=== PATIENT | female | born 2000 | race Caucasian/White ===

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

== ENCOUNTER → 2023-10-29 | Emergency (ER) | payer SELFPAY ==
[~2023-10-29] MED LIST: LIDOCAINE 1% 20 ML MDV ONE
--- OUTSIDE RECORDS SUMMARY | 2023-10-29 01:18 | XMS REPORT | Continuity of Care Document ---
Author Name Unknown Address [address] [facility] [address] [place] [address] [facility] thconnect Address [address] [facility]. [address] [place] [address] Care Team Providers Care Generator Man Name Role Phone Julius Olmstead MD Primary Care Physician DELANEY HADLEY Attending Clinician Unavailable Delaney Hadley MD Attending Clinician [phone] LUCIA PACHECO Attending Clinician Unavailable Lucia Pacheco MD Attending Clinician [phone] Unknown, Attending Attending Clinician Unavailab le Doctor Unassigned, [place] Attending Clinician U VITOR Claire Attending Clinician Unavailable MAURICE AGUIRRE Attending Clinician Unavailable MAGI LOVE Attending Clinician Unavailable Keisha Dolan MA Attending Clinician Unavailab Shanon Chris RN Attending Clinician UnaCHRISTIANO Mccray Attending Clinician Unavailable 1, [facility] Attending Clinician Unavaila rachid Whelan DO Ramirez Attending Clinician [phone] RUTHIE PTA Attending Clinician Unavailable Ruthie Pat MD Attending Clinician [phone] Christiano Watters MD Attending Clinician [phone] LUIS LEMUS Attending Clinician Unavailable Inocente Camilo DO Attending Clinician [phone] Luis Lemus MD Attending Clinician [phone] Calvin Arnold PA-C Attending Clinician [phone] CALVIN ARNOLD Attending Clinician Unavailable 1, [facility] Attending Clinician Unavailab Davida Bowling MD Attending Clinician [phone] DAVIDA HANCOCK Attending Clinician Unavailyunier Smith RN, Lubna Gross Attending Clinician Unav heather 2, [facility] Attending Clinician Unavailable JULISSA MORALES Attending Clinician Unavaila CAROL Holloway Attending Clinician Unavailab Carol Alcala DO Attending Clinician [phone] SHAHENE PATINO Attending Clinician Unavailable Clinic, [facility] Neurology Continuity Attending Clini maddisonShaheen Lee MD Attending Clinician [phone] Lab, [facility] I Attending Clinician Unavailab Thomas Montelongo Attending Clinician [phone] Buzz HAMILTON, Philomena Gaviria Attending Clinician Unavailab THOMAS Mcneil Attending Clinician Unavailable Ollie Hughes Attending Clinician [phone] Po, [facility] Attending Clinician Unav VIKTORIA Hernandez M.D. Attending Clinician Unavaila MAURICE Iyer M.D. Attending Clinician Unava ilRUTHIE Torres Admitting Clinician Unavailable Ruthie Pat MD Admitting Clinician [phone] LUIS LEMUS Admitting Clinician Unavailable Luis Lemus MD Admitting Clinician [phone] Payers Payer Name Policy Type Policy Number Effective Date Expirati on Date Source [facility] [id number] 00:00:00 [facility] [id number] 2021 00:00:00 Problems Condition Name Condition Details Condition Category Status Onset Date Resolution Date Last Treatment Date Treating Clinician Comments Source Kidney infection Kidney infection Disease Active 03-08 00:00: 00 [facility] Hyponatrem ia Hyponatrem ia Disease Active 01-07 00:00: 00 [facility] UTI (urinary tract infection) UTI (urinary tract infection) Disease Active 12-25 00:00: 00 [facility] Hypomagnes emia Hypomagnes emia Disease Active 12-25 00:00: 00 [facility] Complicate d UTI (urinary tract infection) Complicate d UTI (urinary tract infection) Disease Active 12-24 00:00: 00 [facility] 23 weeks gestation of 23 weeks gestation of Disease Active 12-24 00:00: 00 [facility] Pyelonephr itis affecting , antepartum Pyelonephr itis affecting , antepartum Disease Active 12-24 00:00: 00 [facility] 25 weeks gestation of 25 weeks gestation of Disease Active 12-24 00:00: 00 [facility] Migraine without status migrainosu s, not intractabl e, unspecifie d migraine type Migraine without status migrainosu s, not intractabl e, unspecifie d migraine type Disease Active 09-27 00:00: 00 [facility] High risk due to previous abortions High risk due to previous abortions Disease Active 09-27 00:00: 00 [facility] Generalize d anxiety disorder Generalize d anxiety disorder Disease Active 2015-08 00:00: 00 [facility] Major depressive disorder, single episode, mild Major depressive disorder, single episode, mild Disease Active 2015-08 00:00: 00 [facility] Other social stressor Other social stressor Disease Active 2015-08 00:00: 00 [facility] Pseudoseiz ure Pseudoseiz ure Disease Active 2015-08 00:00: 00 [facility] Infected human bite Infected human bite Disease Active 2011-08 00:00: 00 [facility] Abscess or cellulitis of chin Abscess or cellulitis of chin Disease Active 2011-08 00:00: 00 [facility] Laceration of chin with complicati on Laceration of chin with complicati on Disease Active 2011-08 00:00: 00 [facility] Amenorrhea due to oral contracept luis daniel Amenorrhea due to oral contracept luis daniel [facility] Encounter for preconcept ion consultati on Encounter for preconcept ion consultati on Problem Active [facility] Encounter for confirmati on of test result with physical examinatio n Encounter for confirmati on of test result with physical examinatio n Problem Active [facility] Abnormal uterine bleeding Abnormal uterine bleeding Problem Active [facility] Problem Active [facility] History of Missed History of Missed Problem Resolve d [facility] Complete Complete Problem Active [facility] Allergies, Adverse Reactions, Alerts Allergy Name Allergy Type Status Severity Reaction(s) Onset Date Inactive Date Treating Clinician Comments Source PENICILL INS Drug Class Active Other-Cmnt 01-07 00:00: 00 [facility] Penicill ins Propensi ty to adverse reaction s Active Other - See comments 01-07 00:00: 00 Blisters in mouth/thr oat [facility] Penicill ins Propensi ty to adverse reaction s Active Other - See comments 01-07 00:00: 00 Blisters in mouth/thr oat [facility] Ceftriax one Sodium Propensi ty to adverse reaction s Active Rash 2012-08 00:00: 00 [facility] CEFTRIAX ONE SODIUM DRUG INGREDI Active Rash 2012-08 00:00: 00 [facility] Ceftriax one Allergy to substanc e Active Swelling 2011-08 00:00: 00 Pt broke out w/blister s to mouth, lip, tongue, jaw per mom. [facility] CEFTRIAX ONE DRUG INGREDI Active Swelling 2011-08 00:00: 00 [facility] Ceftriax one Propensi ty to adverse reaction s Active Swelling 2011-08 00:00: 00 Pt broke out w/blister s to mouth, lip, tongue, jaw per mom. [facility] Penicill ins Allergy to drug (finding ) Active [facility] Rocephin Allergy to drug (finding ) Active [facility] Family History Family Member Diagnosis Comments Start Date Stop Date Sourc e cousin Family history of diabetes mellitus [facility] great grandmother Family history of malignant neoplasm of colon [facility] great grandfather Family history of malignant neoplasm of breast [facility] Social History Social Habit Start Date Stop Date Quantity Comments Source ASSERTION 2021-07-30 00:00:00 [facility] SDOH Alcohol Comment [facility] Alcohol Std Drinks [facility] SDOH Alcohol Binge [facility] use and exposure 2023-05-20 00:00:00 2023-05-20 00:00:00 Smokeless tobacco non-user [facility] Exposure to SARS-CoV-2 (event) 2022-04-09 00:00:00 2022-04-19 13:12:00 Not sure [facility] Education 2022-01-17 00:00:00 2022-01-17 00:00:00 21 [facility] Cigarette pack-years 2022-01-17 00:00:00 2022-01-17 00:00:00 [facility] Alcohol intake 2022-01-17 00:00:00 2022-01-17 00:00:00 Ex-drinker (finding) [facility] History SDOH Alcohol Frequency 2022-01-17 00:00:00 2022-01-17 00:00:00 1 [facility] History of Social function 2021-08-30 00:00:00 2021-08-30 00:00:00 [facility] Sex Assigned At 2001 00:00:00 2000 00:00:00 F [facility] Smoking Status Start Date Stop Date Source Never smoked tobacco [facility] Medications Ordered Medication Name Filled Medication Name Start Date Stop Date Current Medication? Ordering Clinician Indication Dosage Frequency Signature (SIG) Comments Components Source rizatriptan 5 mg disintegrat ing tablet 2022-08 0-03 00:00: 00 Yes [id number] Take one, May repeat in 2 hours if needed. Do not take more afterwards . [facility] ondansetron 4 mg disintegrat ing tablet 2022-08 0- 00:00: 00 Yes [id number] 4mg Take 1 tablet by mouth every 12 (twelve) hours as needed for Nausea and Vomiting (N/V). [facility] rizatriptan 5 mg disintegrat ing tablet 2022-08 0- 00:00: 00 Yes [id number] Take one, May repeat in 2 hours if needed. Do not take more afterwards . [facility] ondansetron 4 mg disintegrat ing tablet 2022-08 0- 00:00: 00 Yes [id number] 4mg Take 1 tablet by mouth every 12 (twelve) hours as needed for Nausea and Vomiting (N/V). [facility] ondansetron 4 mg disintegrat ing tablet 2022-08 0 00:00: 00 05-20 00:00 :00 No [id number] 4mg Take 1 tablet by mouth every 12 (twelve) hours as needed for Nausea and Vomiting (N/V). [facility] Blood Pressure Monitoring (Blood Pressure Cuff) [facility] [place] [place] 03-26 00:00: 00 03-27 04:59 :00 No [id number] 1{devic e} QD 1 Device 1 (one) time each day. [facility]. Devices (Freestyle Double Breastpump) [facility] [place] [place] 03-26 00:00: 00 03-27 04:59 :00 No [id number] 1{devic e} 1 Device if needed (nursing infant). [facility] Blood Pressure Monitoring (Blood Pressure Cuff) [facility] [place] [place] 03-26 00:00: 00 03-27 04:59 :00 No [id number] 1{devic e} QD 1 Device 1 (one) time each day. [facility] Misc. Devices (Freestyle Double Breastpump) [facility] [place] [place] 8 00:00: 00 03-27 04:59 :00 No [id number] 1{devic e} 1 Device if needed (nursing ). [facility] nitrofurant oin, macrocrysta l-monohydra te, (Macrobid) 100 MG capsule 03-20 13:43: 09 Yes 100mg Q.5D Take 100 mg by mouth in the morning and 100 mg in the evening. [facility] nitrofurant oin, macrocrysta l-monohydra te, (Macrobid) 100 MG capsule 03-20 13:43: 09 Yes 100mg Q.5D Take 100 mg by mouth in the morning and 100 mg in the evening. [facility] nitrofurant oin, macrocrysta l-monohydra te, (Macrobid) 100 MG capsule 03-20 13:43: 09 Yes 100mg Q.5D Take 100 mg by mouth in the morning and 100 mg in the evening. [facility] nitrofurant oin, macrocrysta l-monohydra te, (Macrobid) 100 MG capsule 03-20 13:43: 09 Yes 100mg Q.5D Take 100 mg by mouth in the morning and 100 mg in the evening. [facility] nitrofurant oin, macrocrysta l-monohydra te, (Macrobid) 100 MG capsule 03-05 13:52: 49 Yes 100mg Q.5D Take 100 mg by mouth in the morning and 100 mg in the evening. [facility] nitrofurant oin, macrocrysta l-monohydra te, (Macrobid) 100 MG capsule 03-05 13:52: 49 Yes 100mg Q.5D Take 100 mg by mouth in the morning and 100 mg in the evening. [facility] nitrofurant oin, macrocrysta l-monohydra te, (Macrobid) 100 MG capsule 03-05 13:52: 49 Yes 100mg Q.5D Take 100 mg by mouth in the morning and 100 mg in the evening. [facility] nitrofurant oin, macrocrysta l-monohydra te, (Macrobid) 100 MG capsule 03-05 13:52: 49 Yes 100mg Q.5D Take 100 mg by mouth in the morning and 100 mg in the evening. [facility] nitrofurant oin, macrocrysta l-monohydra te, (Macrobid) 100 MG capsule 02-15 08:46: 41 Yes 100mg Q.5D Take 100 mg by mouth in the morning and 100 mg in the evening. [facility] nitrofurant oin, macrocrysta l-monohydra te, (Macrobid) 100 MG capsule 02-15 08:46: 41 Yes 100mg Q.5D Take 100 mg by mouth in the morning and 100 mg in the evening. [facility] nitrofurant oin, macrocrysta l-monohydra te, (Macrobid) 100 MG capsule 02-15 08:46: 41 Yes 100mg Q.5D Take 100 mg by mouth in the morning and 100 mg in the evening. [facility] nitrofurant oin, macrocrysta l-monohydra te, (Macrobid) 100 MG capsule 02-12 00:00: 00 02-20 04:59 :00 No [id number] 100mg Q.5D Take 1 capsule (100 mg total) by mouth in the morning and 1 capsule (100 mg total) in the evening. Do all this for 7 days. [facility] nitrofurant oin, macrocrysta l-monohydra te, (Macrobid) 100 MG capsule 02-12 00:00: 00 02-20 04:59 :00 No [id number] 100mg Q.5D Take 1 capsule (100 mg total) by mouth in the morning and 1 capsule (100 mg total) in the evening. Do all this for 7 days. [facility] nitrofurant oin, macrocrysta l-monohydra te, (Macrobid) 100 MG capsule 02-01 15:49: 12 Yes 100mg Q.5D Take 100 mg by mouth in the morning and 100 mg in the evening. [facility] nitrofurant oin, macrocrysta l-monohydra te, (Macrobid) 100 MG capsule 02-01 15:49: 12 Yes 100mg Q.5D Take 100 mg by mouth in the morning and 100 mg in the evening. [facility] amoxicillin -clavulanat e (AUGMENTIN) 875-125 mg per tablet 1 tablet 24 15:00: 00 Yes 1{tbl} 1 tablet, Oral, Q12H, First dose on Fri01/08/22 at 1000, Until Discontinu ed, Routine
Reason for Anti-Infec tive: Documented Infection< br>Documen dylan Infection Site: Urine
D uration of Therapy: 14 days [facility] Nitrofurant oin&Nit. Macrocryst (MACROBID) 100 mg capsule 100 mg 01-08 14:15: 00 Yes 100mg 100 mg, Oral, BID, First dose on Fri01/08/22 at 0915, Until Discontinu ed, Routine
Reason for Anti-Infec tive: Documented Infection< br>Documen dylan Infection Site: Urine
D uration of Therapy: 14 days [facility] amoxicillin -clavulanat e 875-125 mg per tablet 01-08 00:00: 00 01-22 04:59 :00 No [id number] 108 1{tbl} Take 1 tablet by mouth every 12 (twelve) hours for 13 days. [facility] Nitrofurant n&Nit. Macrocryst 100 mg capsule 01-08 00:00: 00 01-08 00:00 :00 No [id number] 108 100mg Take 1 capsule by mouth 2 (two) times daily for 13 days. [facility] NaCl 0.9% (NS) IV infusion 1,000 mL 01-07 11:15: 00 Yes 1000mL at 150 mL/hr, IV Infusion, CONTINUOUS , Starting on Fri01/07/22 at 0615, Until Discontinu ed, Routine [facility] piperacilli n-tazobacta m (ZOSYN) 3.375 g in NaCl 0.9% (NS) 50 mL MINI-BAG 01-07 11:00: 00 01-08 14:14 :30 No 3.375g 3.375 g, IV Piggyback, Q8H ABX, First dose on Fri01/07/22 at 0600, Until Discontinu ed, Administer over 30 Minutes, 50 mL
Reas on for Anti-Infec tive: Empiric Therapy for Suspected Infection< br>Empiric Therapy Site: Urine
D uration of therapy: 72 hours [facility] proMETHazin e (PHENERGAN) 12.5 mg in NaCl 0.9% (NS) 50 mL IV piggyback 01-07 10:39: 23 Yes 12.5mg 12.5 mg, IV Piggyback, Q4HPRN, Starting on Fri01/07/22 at 0539, Until Discontinu ed, Routine, Nausea and Vomiting (N/V) [facility] acetaminoph en (TYLENOL) tablet 650 mg 01-07 10:37: 03 Yes 650mg 650 mg, Oral, Q6HPRN, Starting on Fri01/07/22 at 0537, Until Discontinu ed, Routine, Pain, Fever [facility] acetaminoph en (TYLENOL) tablet 1,000 mg 01-07 10:02: 00 01-07 10:23 :00 No 1000mg 1,000 mg, Oral, ONCE, 1 dose, On Fri01/07/22 at 0515, Routine [facility] vitamin w/FA tablet 1 tablet 12-25 14:00: 00 Yes 1{tbl} 1 tablet, Oral, DAILY, First dose on Fri12/25/21 at 0900, Until Discontinu ed, Routine [facility] magnesium sulfate in water 2 gram/50 mL (4 %) infusion 2 g 12-25 13:45: 00 12-25 14:36 :00 No 2g 2 g, IV Piggyback, Administer over 60 Minutes, ONCE, 1 dose, On Fri12/25/21 at 0845, Routine [facility] Nitrofurant oin&Nit. Macrocryst (MACROBID) 100 mg capsule 100 mg 12-25 13:00: 00 Yes 100mg 100 mg, Oral, BID, First dose on Fri12/25/21 at 0800, Until Discontinu ed, Routine
Reason for Anti-Infec tive: Documented Infection [facility] piperacilli n-tazobacta m (ZOSYN) 3.375 g in NaCl 0.9% (NS) 50 mL MINI-BAG 12-25 03:00: 00 12-25 12:40 :18 No 3.375g 3.375 g, IV Piggyback, Q8H, First dose (after last reorder) on Fri12/24/21 at 2200, Until Discontinu ed, Administer over 4 Hours, 50 mL
Reas on for Anti-Infec tive: Empiric Therapy for Suspected Infection< br>Empiric Therapy Site: Urine
D uration of therapy: 72 hours [facility] Nitrofurant oin&Nit. Macrocryst 100 mg capsule 12-25 00:00: 00 01-02 04:59 :00 No [id number] 100mg Take 1 capsule by mouth 2 (two) times daily for 7 days. [facility] Nitrofurant oin&Nit. Macrocryst 100 mg capsule 12-25 00:00: 00 01-02 04:59 :00 No [id number] 100mg Take 1 capsule by mouth 2 (two) times daily for 7 days. [facility] Nitrofurant oin&Nit. Macrocryst 100 mg capsule 12-25 00:00: 00 01-02 04:59 :00 No [id number] 100mg Take 1 capsule by mouth 2 (two) times daily for 7 days. [facility] cetirizine (ZYRTEC) tablet 10 mg 12-24 23:00: 00 Yes 10mg 10 mg, Oral, DAILY, First dose on Fri12/24/21 at 1800, Until Discontinu ed, Routine [facility] acetaminoph en (TYLENOL) tablet 650 mg 12-24 17:47: 56 Yes 650mg 650 mg, Oral, Q6HPRN, Starting on Fri12/24/21 at 1247, Until Discontinu ed, Routine, Pain (scale 1-3), Pain (scale 4-6), Temp > 38.5 C [facility] alum-mag hydroxide-s imeth (MAALOX PLUS / MAG-AL PLUS) 200-200-20 mg/5 mL suspension 30 mL 12-24 17:46: 44 Yes 30mL 30 mL, Oral, Q6HPRN, Starting on Fri12/24/21 at 1246, Until Discontinu ed, Routine, Indigestio n [facility] docusate calcium (SURFAK) capsule 240 mg 12-24 17:46: 44 Yes 240mg 240 mg, Oral, QHSPRN, Starting on Fri12/24/21 at 1246, Until Discontinu ed, Routine, Constipati on [facility] magnesium hydroxide (MILK OF MAGNESIA) 400 mg/5 mL suspension 30 mL 12-24 17:46: 44 Yes 30mL 30 mL, Oral, QDAILYPRN, Starting on Fri12/24/21 at 1246, Until Discontinu ed, Routine, Constipati on [facility] piperacilli n-tazobacta m (ZOSYN) 3.375 g in NaCl 0.9% (NS) 50 mL MINI-BAG 12-24 16:30: 00 12-24 16:17 :00 No 3.375g 3.375 g, IV Piggyback, ONCE, 1 dose, On Fri12/24/21 at 1130, Administer over 30 Minutes, 50 mL
Reas on for Anti-Infec tive: Empiric Therapy for Suspected Infection< br>Empiric Therapy Site: Urine
D uration of therapy: 72 hours [facility] Nitrofurant oin&Nit. Macrocryst (MACROBID) 100 mg capsule 100 mg 11-01 03:30: 00 11-01 02:43 :00 No 100mg 100 mg, Oral, ONCE, 1 dose, On Fri10/31/21 at 2230, Routine
Reason for Anti-Infec tive: Empiric Therapy for Suspected Infection< br>Empiric Therapy Site: Urine
D uration of therapy: 72 hours [facility] Nitrofurant oin&Nit. Macrocryst 100 mg capsule 10-31 00:00: 00 11-08 04:59 :00 No [id number] 100mg Take 1 capsule by mouth 2 (two) times daily for 7 days. [facility] magnesium oxide 400 mg (241.3 mg magnesium) tablet 0 2-24 00:00: 00 Yes [id number] 400mg Take 1 tablet by mouth daily. [facility] oxide 400 mg (241.3 mg magnesium) tablet 0 2-24 00:00: 00 Yes [id number] 400mg Take 1 tablet by mouth daily. [facility] magnesium oxide 400 mg (241.3 mg magnesium) tablet 0 2-24 00:00: 00 Yes [id number] 400mg Take 1 tablet by mouth daily. [facility] magnesium oxide 400 mg (241.3 mg magnesium) tablet 0 2-24 00:00: 00 Yes [id number] 400mg Take 1 tablet by mouth daily. [facility] magnesium oxide 400 mg (241.3 mg magnesium) tablet 0 224 00:00: 00 Yes [id number] 400mg Take 1 tablet by mouth daily. [facility] magnesium oxide 400 mg (241.3 mg magnesium) tablet 0 224 00:00: 00 Yes [id number] 400mg Take 1 tablet by mouth daily. [facility] magnesium oxide 400 mg (241.3 mg magnesium) tablet 0 224 00:00: 00 Yes [id number] 400mg Take 1 tablet by mouth daily. [facility] magnesium oxide 400 mg (241.3 mg magnesium) tablet 0 2-24 00:00: 00 Yes [id number] 400mg Take 1 tablet by mouth daily. [facility] magnesium oxide 400 mg (241.3 mg magnesium) tablet 0 2-24 00:00: 00 Yes [id number] 400mg Take 1 tablet by mouth daily. [facility] magnesium oxide 400 mg (241.3 mg magnesium) tablet 0 2-24 00:00: 00 Yes [id number] 400mg Take 1 tablet by mouth daily. [facility] magnesium oxide 400 mg (241.3 mg magnesium) tablet 0 2-24 00:00: 00 Yes [id number] 400mg Take 1 tablet by mouth daily. [facility] magnesium oxide 400 mg (241.3 mg magnesium) tablet 224 00:00: 00 Yes [id number] 400mg Take 1 tablet by mouth daily. [facility] magnesium oxide 400 mg (241.3 mg magnesium) tablet 224 00:00: 00 Yes [id number] 400mg Take 1 tablet by mouth daily. [facility] magnesium oxide 400 mg (241.3 mg magnesium) tablet 224 00:00: 00 Yes [id number] 400mg Take 1 tablet by mouth daily. [facility] magnesium oxide 400 mg (241.3 mg magnesium) tablet 224 00:00: 00 Yes [id number] 400mg Take 1 tablet by mouth daily. [facility] magnesium oxide 400 mg (241.3 mg magnesium) tablet 10-11 00:00: 00 Yes [id number] 400mg Take 1 tablet by mouth daily. [facility] magnesium oxide 400 mg (241.3 mg magnesium) tablet 224 00:00: 00 Yes [id number] 400mg Take 1 tablet by mouth daily. [facility] magnesium oxide 400 mg (241.3 mg magnesium) tablet 224 00:00: 00 Yes [id number] 400mg Take 1 tablet by mouth daily. [facility] magnesium oxide 400 mg (241.3 mg magnesium) tablet 10-11 00:00: 00 Yes [id number] 400mg Take 1 tablet by mouth daily. [facility] magnesium oxide 400 mg (241.3 mg magnesium) tablet 2-24 00:00: 00 Yes [id number] 400mg Take 1 tablet by mouth daily. [facility] magnesium oxide 400 mg (241.3 mg magnesium) tablet 0 224 00:00: 00 Yes [id number] 400mg Take 1 tablet by mouth daily. [facility] acetaminoph en-caff-but albital (ESGIC) per capsule 2-10 00:00: 00 Yes [id number] 1{capsu le} Take 1 capsule by mouth every 4 (four) hours as needed (headache not improve with Tylenol). [facility] acetaminoph en-caff-but albital (ESGIC) per capsule 2-10 00:00: 00 Yes [id number] 1{capsu le} Take 1 capsule by mouth every 4 (four) hours as needed (headache not improve with Tylenol). [facility] acetaminoph en-caff-but albital (ESGIC) per capsule 2-10 00:00: 00 Yes [id number] 1{capsu le} Take 1 capsule by mouth every 4 (four) hours as needed (headache not improve with Tylenol). [facility] acetaminoph en-caff-but albital (ESGIC) per capsule 2 00:00: 00 Yes [id number] 1{capsu le} Take 1 capsule by mouth every 4 (four) hours as needed (headache not improve with Tylenol). [facility] acetaminoph en-caff-but albital (ESGIC) per capsule 2 00:00: 00 Yes [id number] 1{capsu le} Take 1 capsule by mouth every 4 (four) hours as needed (headache not improve with Tylenol). [facility] acetaminoph en-caff-but albital (ESGIC) per capsule 2 00:00: 00 Yes [id number] 1{capsu le} Take 1 capsule by mouth every 4 (four) hours as needed (headache not improve with Tylenol). [facility] acetaminoph en-caff-but albital (ESGIC) per capsule 2-10 00:00: 00 Yes [id number] 1{capsu le} Take 1 capsule by mouth every 4 (four) hours as needed (headache not improve with Tylenol). [facility] acetaminoph en-caff-but albital (ESGIC) per capsule 2-10 00:00: 00 Yes [id number] 1{capsu le} Take 1 capsule by mouth every 4 (four) hours as needed (headache not improve with Tylenol). [facility] acetaminoph en-caff-but albital (ESGIC) per capsule 2-10 00:00: 00 Yes [id number] 1{capsu le} Take 1 capsule by mouth every 4 (four) hours as needed (headache not improve with Tylenol). [facility] acetaminoph en-caff-but albital (ESGIC) per capsule 2 00:00: 00 Yes [id number] 1{capsu le} Take 1 capsule by mouth every 4 (four) hours as needed (headache not improve with Tylenol). [facility] acetaminoph en-caff-but albital (ESGIC) per capsule 2 00:00: 00 Yes [id number] 1{capsu le} Take 1 capsule by mouth every 4 (four) hours as needed (headache not improve with Tylenol). [facility] acetaminoph en-caff-but albital (ESGIC) per capsule 2 00:00: 00 Yes [id number] 1{capsu le} Take 1 capsule by mouth every 4 (four) hours as needed (headache not improve with Tylenol). [facility] acetaminoph en-caff-but albital (ESGIC) per capsule 09-27 00:00: 00 Yes [id number] 1{capsu le} Take 1 capsule by mouth every 4 (four) hours as needed (headache not improve with Tylenol). [facility] acetaminoph en-caff-but albital (ESGIC) per capsule 2 00:00: 00 Yes [id number] 1{capsu le} Take 1 capsule by mouth every 4 (four) hours as needed (headache not improve with Tylenol). [facility] acetaminoph en-caff-but albital (ESGIC) per capsule 2 00:00: 00 Yes [id number] 1{capsu le} Take 1 capsule by mouth every 4 (four) hours as needed (headache not improve with Tylenol). [facility] acetaminoph en-caff-but albital (ESGIC) per capsule 2- 00:00: 00 Yes [id number] 1{capsu le} Take 1 capsule by mouth every 4 (four) hours as needed (headache not improve with Tylenol). [facility] acetaminoph en-caff-but albital (ESGIC) per capsule 09-27 00:00: 00 Yes [id number] 1{capsu le} Take 1 capsule by mouth every 4 (four) hours as needed (headache not improve with Tylenol). [facility] acetaminoph en-caff-but albital (ESGIC) per capsule 09-27 00:00: 00 Yes [id number] 1{capsu le} Take 1 capsule by mouth every 4 (four) hours as needed (headache not improve with Tylenol). [facility] acetaminoph en-caff-but albital (ESGIC) per capsule 09-27 00:00: 00 Yes [id number] 1{capsu le} Take 1 capsule by mouth every 4 (four) hours as needed (headache not improve with Tylenol). [facility] acetaminoph en-caff-but albital (ESGIC) per capsule 09-27 00:00: 00 Yes [id number] 1{capsu le} Take 1 capsule by mouth every 4 (four) hours as needed (headache not improve with Tylenol). [facility] acetaminoph en-caff-but albital (ESGIC) per capsule 09-27 00:00: 00 Yes [id number] 1{capsu le} Take 1 capsule by mouth every 4 (four) hours as needed (headache not improve with Tylenol). [facility] magnesium oxide 400 mg (241.3 mg magnesium) tablet 09-27 00:00: 00 10-11 00:00 :00 No [id number] 400mg Take 1 tablet by mouth daily. [facility] miconazole 100 mg vaginal suppository 09-02 00:00: 00 Yes [id number] 100mg Insert 1 Suppositor y into vagina at bedtime. [facility] miconazole 100 mg vaginal suppository 16 00:00: 00 Yes [id number] 100mg Insert 1 Suppositor y into vagina at bedtime. [facility] miconazole 100 mg vaginal suppository 0 16 00:00: 00 Yes [id number] 100mg Insert 1 Suppositor y into vagina at bedtime. [facility] miconazole 100 mg vaginal suppository 0 16 00:00: 00 Yes [id number] 100mg Insert 1 Suppositor y into vagina at bedtime. [facility] miconazole 100 mg vaginal suppository 0 16 00:00: 00 Yes [id number] 100mg Insert 1 Suppositor y into vagina at bedtime. [facility] miconazole 100 mg vaginal suppository 0 16 00:00: 00 Yes [id number] 100mg Insert 1 Suppositor y into vagina at bedtime. [facility] miconazole 100 mg vaginal suppository 0 16 00:00: 00 Yes [id number] 100mg Insert 1 Suppositor y into vagina at bedtime. [facility] miconazole 100 mg vaginal suppository 0 16 00:00: 00 Yes [id number] 100mg Insert 1 Suppositor y into vagina at bedtime. [facility] miconazole 100 mg vaginal suppository 16 00:00: 00 Yes [id number] 100mg Insert 1 Suppositor y into vagina at bedtime. [facility] miconazole 100 mg vaginal suppository 0 16 00:00: 00 Yes [id number] 100mg Insert 1 Suppositor y into vagina at bedtime. [facility] miconazole 100 mg vaginal suppository 0 16 00:00: 00 Yes [id number] 100mg Insert 1 Suppositor y into vagina at bedtime. [facility] miconazole 100 mg vaginal suppository 0 16 00:00: 00 Yes [id number] 100mg Insert 1 Suppositor y into vagina at bedtime. [facility] miconazole 100 mg vaginal suppository 2021-0 -16 00:00: 00 Yes [id number] 100mg Insert 1 Suppositor y into vagina at bedtime. [facility] miconazole 100 mg vaginal suppository 2021-0 16 00:00: 00 Yes [id number] 100mg Insert 1 Suppositor y into vagina at bedtime. [facility] miconazole 100 mg vaginal suppository 2021-0 16 00:00: 00 Yes [id number] 100mg Insert 1 Suppositor y into vagina at bedtime. [facility] miconazole 100 mg vaginal suppository 0 16 00:00: 00 Yes [id number] 100mg Insert 1 Suppositor y into vagina at bedtime. [facility] miconazole 100 mg vaginal suppository 2021-0 16 00:00: 00 Yes [id number] 100mg Insert 1 Suppositor y into vagina at bedtime. [facility] miconazole 100 mg vaginal suppository 2021-0 16 00:00: 00 Yes [id number] 100mg Insert 1 Suppositor y into vagina at bedtime. [facility] miconazole 100 mg vaginal suppository 0 16 00:00: 00 Yes [id number] 100mg Insert 1 Suppositor y into vagina at bedtime. [facility] miconazole 100 mg vaginal suppository 2021-0 16 00:00: 00 Yes [id number] 100mg Insert 1 Suppositor y into vagina at bedtime. [facility] miconazole 100 mg vaginal suppository 2021-0 16 00:00: 00 Yes [id number] 100mg Insert 1 Suppositor y into vagina at bedtime. [facility] miconazole 100 mg vaginal suppository 2021-0 16 00:00: 00 Yes [id number] 100mg Insert 1 Suppositor y into vagina at bedtime. [facility] miconazole 100 mg vaginal suppository 2021-0 16 00:00: 00 Yes [id number] 100mg Insert 1 Suppositor y into vagina at bedtime. [facility] Prenat-Fe Poly-Methfo l-FA-DHA (Vitafol FE+) 90-0.6-0.4- 200 MG capsule 2022-0 1-13 00:00: 00 Yes Take by mouth. [facility] Prenat-Fe Poly-Methfo l-FA-DHA (Vitafol FE+) 90-0.6-0.4- 200 MG capsule 2022-0 1-13 00:00: 00 Yes Take by mouth. [facility] Prenat-Fe Poly-Methfo l-FA-DHA (Vitafol FE+) 90-0.6-0.4- 200 MG capsule 2022-0 1-13 00:00: 00 Yes Take by mouth. [facility] Prenat-Fe Poly-Methfo l-FA-DHA (Vitafol FE+) 90-0.6-0.4- 200 MG capsule 2022-0 -13 00:00: 00 Yes Take by mouth. [facility] Prenat-Fe Poly-Methfo l-FA-DHA (Vitafol FE+) 90-0.6-0.4- 200 MG capsule 2022-0 -13 00:00: 00 Yes Take by mouth. [facility] Prenat-Fe Poly-Methfo l-FA-DHA (Vitafol FE+) 90-0.6-0.4- 200 MG capsule 2022-0 -13 00:00: 00 Yes Take by mouth. [facility] Prenat-Fe Poly-Methfo l-FA-DHA (Vitafol FE+) 90-0.6-0.4- 200 MG capsule 2022-0 1-13 00:00: 00 Yes Take by mouth. [facility] Prenat-Fe Poly-Methfo l-FA-DHA (Vitafol FE+) 90-0.6-0.4- 200 MG capsule 2022-0 -13 00:00: 00 Yes Take by mouth. [facility] Prenat-Fe Poly-Methfo l-FA-DHA (Vitafol FE+) 90-0.6-0.4- 200 MG capsule 2022-0 -13 00:00: 00 Yes Take by mouth. [facility] Prenat-Fe Poly-Methfo l-FA-DHA (Vitafol FE+) 90-0.6-0.4- 200 MG capsule 2022-0 1-13 00:00: 00 Yes Take by mouth. [facility] PNV 102-iron-fo late-dha (VITAFOL FE PLUS) 90 mg iron- 1 mg-200 mg Cap 2022-0 1-13 00:00: 00 Yes Take 1 TAB-CAP/M2 by mouth daily. [facility] PNV 102-iron-fo late-dha (VITAFOL FE PLUS) 90 mg iron- 1 mg-200 mg Cap 2022-0 1-13 00:00: 00 Yes Take 1 TAB-CAP/M2 by mouth daily. [facility] PNV 102-iron-fo late-dha (VITAFOL FE PLUS) 90 mg iron- 1 mg-200 mg Cap 2022-0 1-13 00:00: 00 Yes Take 1 TAB-CAP/M2 by mouth daily. [facility] PNV 102-iron-fo late-dha (VITAFOL FE PLUS) 90 mg iron- 1 mg-200 mg Cap 2-0 -13 00:00: 00 Yes Take 1 TAB-CAP/M2 by mouth daily. [facility] PNV 102-iron-fo late-dha (VITAFOL FE PLUS) 90 mg iron- 1 mg-200 mg Cap 2-0 -13 00:00: 00 Yes Take 1 TAB-CAP/M2 by mouth daily. [facility] PNV 102-iron-fo late-dha (VITAFOL FE PLUS) 90 mg iron- 1 mg-200 mg Cap 2022-0 -13 00:00: 00 Yes Take 1 TAB-CAP/M2 by mouth daily. [facility] PNV 102-iron-fo late-dha (VITAFOL FE PLUS) 90 mg iron- 1 mg-200 mg Cap 2022-0 1-13 00:00: 00 Yes Take 1 TAB-CAP/M2 by mouth daily. [facility] PNV 102-iron-fo late-dha (VITAFOL FE PLUS) 90 mg iron- 1 mg-200 mg Cap 2022-0 -13 00:00: 00 Yes Take 1 TAB-CAP/M2 by mouth daily. [facility] PNV 102-iron-fo late-dha (VITAFOL FE PLUS) 90 mg iron- 1 mg-200 mg Cap 2022-0 1-13 00:00: 00 Yes Take 1 TAB-CAP/M2 by mouth daily. [facility] PNV 102-iron-fo late-dha (VITAFOL FE PLUS) 90 mg iron- 1 mg-200 mg Cap 2021-0 - 00:00: 00 Yes Take 1 TAB-CAP/M2 by mouth daily. [facility] Prenat-Fe Poly-Methfo l-FA-DHA (Vitafol FE+) 90-0.6-0.4- 200 MG capsule 2021-0 - 00:00: 00 Yes Take by mouth. [facility] PNV 102-iron-fo late-dha (VITAFOL FE PLUS) 90 mg iron- 1 mg-200 mg Cap 2021-0 08-30 00:00: 00 Yes Take 1 TAB-CAP/M2 by mouth daily. [facility] PNV 102-iron-fo late-dha (VITAFOL FE PLUS) 90 mg iron- 1 mg-200 mg Cap 2021-0 08-30 00:00: 00 Yes Take 1 TAB-CAP/M2 by mouth daily. [facility] PNV 102-iron-fo late-dha (VITAFOL FE PLUS) 90 mg iron- 1 mg-200 mg Cap 2021-0 08-30 00:00: 00 Yes Take 1 TAB-CAP/M2 by mouth daily. [facility] PNV 102-iron-fo late-dha (VITAFOL FE PLUS) 90 mg iron- 1 mg-200 mg Cap 2021-0 08-30 00:00: 00 Yes Take 1 TAB-CAP/M2 by mouth daily. [facility] PNV 102-iron-fo late-dha (VITAFOL FE PLUS) 90 mg iron- 1 mg-200 mg Cap 2021-0 08-30 00:00: 00 Yes Take 1 TAB-CAP/M2 by mouth daily. [facility] PNV 102-iron-fo late-dha (VITAFOL FE PLUS) 90 mg iron- 1 mg-200 mg Cap 2-0 08-30 00:00: 00 Yes Take 1 TAB-CAP/M2 by mouth daily. [facility] PNV 102-iron-fo late-dha (VITAFOL FE PLUS) 90 mg iron- 1 mg-200 mg Cap 2022-0 1-13 00:00: 00 Yes Take 1 TAB-CAP/M2 by mouth daily. [facility] PNV 102-iron-fo late-dha (VITAFOL FE PLUS) 90 mg iron- 1 mg-200 mg Cap 2022-0 1-13 00:00: 00 Yes Take 1 TAB-CAP/M2 by mouth daily. [facility] PN 102-iron-fo late-dha (VITAFOL FE PLUS) 90 mg iron- 1 mg-200 mg Cap 2022-0 -13 00:00: 00 Yes Take 1 TAB-CAP/M2 by mouth daily. [facility] PNV 102-iron-fo late-dha (VITAFOL FE PLUS) 90 mg iron- 1 mg-200 mg Cap 2-0 -13 00:00: 00 Yes Take 1 TAB-CAP/M2 by mouth daily. [facility] Prenat-Fe Poly-Methfo l-FA-DHA (Vitafol FE+) 90-0.6-0.4- 200 MG capsule 2-0 -13 00:00: 00 Yes Take by mouth. [facility] 102-iron-fo late-dha (VITAFOL FE PLUS) 90 mg iron- 1 mg-200 mg Cap 2-0 - 00:00: 00 Yes Take 1 TAB-CAP/M2 by mouth daily. [facility] PNV 102-iron-fo late-dha (VITAFOL FE PLUS) 90 mg iron- 1 mg-200 mg Cap 2-0 -13 00:00: 00 Yes Take 1 TAB-CAP/M2 by mouth daily. [facility] PN 102-iron-fo late-dha (VITAFOL FE PLUS) 90 mg iron- 1 mg-200 mg Cap 2022-0 -13 00:00: 00 Yes Take 1 TAB-CAP/M2 by mouth daily. [facility] Prenat-Fe Poly-Methfo l-FA-DHA (Vitafol FE+) 90-0.6-0.4- 200 MG capsule 2022-0 1-13 00:00: 00 Yes Take by mouth. [facility] Prenat-Fe Poly-Methfo l-FA-DHA (Vitafol FE+) 90-0.6-0.4- 200 MG capsule 08-30 00:00: 00 Yes Take by mouth. [facility] Prenat-Fe Poly-Methfo l-FA-DHA (Vitafol FE+) 90-0.6-0.4- 200 MG capsule 08-30 00:00: 00 Yes Take by mouth. [facility] Immunizations Ordered Immunization Name Filled Immunization Name Date Status Comments Source Tdap 2022-02-21 00:00:00 Completed [facility] Tdap 2022-02-21 00:00:00 Completed [facility] Tdap 2022-02-21 00:00:00 Completed [facility] Tdap 2022-02-21 00:00:00 Completed [facility] Tdap 2022-02-21 00:00:00 Completed [facility] Tdap 2022-02-21 00:00:00 Completed [facility] Tdap 2022-02-21 00:00:00 Completed [facility] Tdap 2022-02-21 00:00:00 Completed [facility] Tdap 2022-02-21 00:00:00 Completed [facility] Influenza Virus Vaccine Quad IM, Preserv and ABX Free 6 MO-64 YRS 2021-08-30 00:00:00 Completed [facility] Influenza Virus Vaccine Quad IM, Preserv and ABX Free 6 MO-64 YRS 2021-08-30 00:00:00 Completed [facility] Influenza Virus Vaccine Quad IM, Preserv and ABX Free 6 MO-64 YRS 2021-08-30 00:00:00 Completed [facility] Influenza Virus Vaccine Quad IM, Preserv and ABX Free 6 MO-64 YRS 2021-08-30 00:00:00 Completed [facility] Influenza Virus Vaccine Quad IM, Preserv and ABX Free 6 MO-64 YRS 2021-08-30 00:00:00 Completed [facility] Influenza Virus Vaccine Quad IM, Preserv and ABX Free 6 MO-64 YRS 2021-08-30 00:00:00 Completed [facility] Influenza Virus Vaccine Quad IM, Preserv and ABX Free 6 MO-64 YRS 2021-08-30 00:00:00 Completed [facility] Influenza Virus Vaccine Quad IM, Preserv and ABX Free 6 MO-64 YRS 2021-08-30 00:00:00 Completed [facility] Influenza Virus Vaccine Quad IM, Preserv and ABX Free 6 MO-64 YRS 2021-08-30 00:00:00 Completed [facility] Influenza Virus Vaccine Quad IM, Preserv and ABX Free 6 MO-64 YRS 2021-08-30 00:00:00 Completed [facility] Influenza Virus Vaccine Quad IM, Preserv and ABX Free 6 MO-64 YRS 2021-08-30 00:00:00 Completed [facility] Influenza Virus Vaccine Quad IM, Preserv and ABX Free 6 MO-64 YRS 2021-08-30 00:00:00 Completed [facility] Influenza Virus Vaccine Quad IM, Preserv and ABX Free 6 MO-64 YRS 2021-08-30 00:00:00 Completed [facility] Influenza Virus Vaccine Quad IM, Preserv and ABX Free 6 MO-64 YRS 2021-08-30 00:00:00 Completed [facility] Influenza Virus Vaccine Quad IM, Preserv and ABX Free 6 MO-64 YRS 2021-08-30 00:00:00 Completed [facility] Influenza Virus Vaccine Quad IM, Preserv and ABX Free 6 MO-64 YRS 2021-08-30 00:00:00 Completed [facility] Influenza Virus Vaccine Quad IM, Preserv and ABX Free 6 MO-64 YRS 2021-08-30 00:00:00 Completed [facility] Influenza Virus Vaccine Quad IM, Preserv and ABX Free 6 MO-64 YRS 2021-08-30 00:00:00 Completed [facility] Gardasil 9 Intramuscular Suspension 2018-01-05 00:00:00 Completed [facility] HPV9 2018-01-05 00:00:00 Completed [facility] HPV9 2018-01-05 00:00:00 Completed [facility] HPV9 2018-01-05 00:00:00 Completed [facility] HPV9 2018-01-05 00:00:00 Completed [facility] HPV9 2018-01-05 00:00:00 Completed [facility] HPV9 2018-01-05 00:00:00 Completed [facility] HPV9 2018-01-05 00:00:00 Completed [facility] HPV9 2018-01-05 00:00:00 Completed [facility] HPV9 2018-01-05 00:00:00 Completed [facility] Gardasil 9 Intramuscular Suspension 2017-05-23 00:00:00 Completed [facility] HPV9 2017-05-23 00:00:00 Completed [facility] HPV9 2017-05-23 00:00:00 Completed [facility] HPV9 2017-05-23 00:00:00 Completed [facility] HPV9 2017-05-23 00:00:00 Completed [facility] HPV9 2017-05-23 00:00:00 Completed [facility] HPV9 2017-05-23 00:00:00 Completed [facility] HPV9 2017-05-23 00:00:00 Completed [facility] HPV9 2017-05-23 00:00:00 Completed [facility] HPV9 2017-05-23 00:00:00 Completed [facility] Gardasil 9 Intramuscular Suspension 2017-03-12 00:00:00 Completed [facility] 2017-03-12 00:00:00 Completed [facility] HPV9 2017-03-12 00:00:00 Completed [facility] HPV9 2017-03-12 00:00:00 Completed [facility] HPV9 2017-03-12 00:00:00 Completed [facility] HPV9 2017-03-12 00:00:00 Completed [facility] HPV9 2017-03-12 00:00:00 Completed [facility] HPV9 2017-03-12 00:00:00 Completed [facility] HPV9 2017-03-12 00:00:00 Completed [facility] HPV9 2017-03-12 00:00:00 Completed [facility] Meningococcal, MCV4, unspecified conjugate formulation(groups A, C, Y and W-135) 2014-03-22 00:00:00 Completed [facility] Varivax 1350 PFU/0.5ML Subcutaneous Injectable 2012-09-29 00:00:00 Completed [facility] Boostrix 5-2.5-18.5 Intramuscular Suspension 2012-08-04 00:00:00 Completed [facility] TDAP 2012-08-04 00:00:00 Completed [facility] TDAP 2012-08-04 00:00:00 Completed [facility] TDAP 2012-08-04 00:00:00 Completed [facility] TDAP 2012-08-04 00:00:00 Completed [facility] TDAP 2012-08-04 00:00:00 Completed [facility] TDAP 2012-08-04 00:00:00 Completed [facility] TDAP 2012-08-04 00:00:00 Completed [facility] TDAP 2012-08-04 00:00:00 Completed [facility] TDAP 2012-08-04 00:00:00 Completed [facility] TDAP 2012-08-04 00:00:00 Completed [facility] hepatitis A vaccine, pediatric/adolescen t dosage, 2 dose schedule 2006-03-20 00:00:00 Completed [facility] Ipol Injection Injectable 2005-07-02 00:00:00 Completed [facility] DTaP, unspecified formulation 2005-07-02 00:00:00 Completed [facility] M-M-R II Subcutaneous Injectable 2005-07-02 00:00:00 Completed [facility] Pneumo (Prevnar 7) 2005-04-18 00:00:00 Completed [facility] hepatitis A vaccine, pediatric/adolescen t dosage, 2 dose schedule 2005-04-18 00:00:00 Completed [facility] Ipol Injection Injectable 2002-11-10 00:00:00 Completed [facility] Hib, Haemophilus influenzae type b vaccine, PRP-T conjugate 2002-11-10 00:00:00 Completed [facility] DTaP, unspecified formulation 2002-11-10 00:00:00 Completed [facility] M-M-R II Subcutaneous Injectable 2002-11-10 00:00:00 Completed [facility] Varivax 1350 PFU/0.5ML Subcutaneous Injectable 2002-11-10 00:00:00 Completed [facility] Hib, Haemophilus influenzae type b vaccine, PRP-T conjugate 2002-03-17 00:00:00 Completed [facility] DTaP, unspecified formulation 2002-03-17 00:00:00 Completed [facility] Hepatitis B, pediatric/adolescen t dosage 2001 00:00:00 Completed [facility] Ipol Injection Injectable 2001 00:00:00 Completed [facility] Hib, Haemophilus influenzae type b vaccine, PRP-T conjugate 2001 00:00:00 Completed [facility] DTaP, unspecified formulation 2001 00:00:00 Completed [facility] Ipol Injection Injectable 2001 00:00:00 Completed [facility] Hib, Haemophilus influenzae type b vaccine, PRP-T conjugate 2001 00:00:00 Completed [facility] DTaP, unspecified formulation 2001 00:00:00 Completed [facility] Hepatitis B, pediatric/adolescen t dosage 2001 00:00:00 Completed [facility] Hepatitis B, pediatric/adolescen t dosage 2001 00:00:00 Completed [facility] Influenza Virus Vaccine Quad IM, Preserv and ABX Free 6 MO-64 YRS (FLUCELVAX) Unknown Completed [facility] TDAP Unknown Completed [facility] HPV9 Unknown Completed [facility] HPV9 Unknown Completed [facility] HPV9 Unknown Completed [facility] Influenza Virus Vaccine Quad IM, Preserv and ABX Free 6 MO-64 YRS (FLUCELVAX) Unknown Completed [facility] TDAP Unknown Completed [facility] HPV9 Unknown Completed [facility] HPV9 Unknown Completed [facility] HPV9 Unknown Completed [facility] TDAP Unknown Completed [facility] HPV9 Unknown Completed [facility] HPV9 Unknown Completed [facility] HPV9 Unknown Completed [facility] TDAP Unknown Completed [facility] HPV9 Unknown Completed [facility] HPV9 Unknown Completed [facility] HPV9 Unknown Completed [facility] TDAP Unknown Completed [facility] HPV9 Unknown Completed [facility] HPV9 Unknown Completed [facility] HPV9 Unknown Completed [facility] Influenza Virus Vaccine Quad IM, Preserv and ABX Free 6 MO-64 YRS (FLUCELVAX) Unknown Completed [facility] TDAP Unknown Completed [facility] HPV9 Unknown Completed [facility] HPV9 Unknown Completed [facility] HPV9 Unknown Completed [facility] Influenza Virus Vaccine Quad IM, Preserv and ABX Free 6 MO-64 YRS (FLUCELVAX) Unknown Completed [facility] TDAP Unknown Completed [facility] HPV9 Unknown Completed [facility] HPV9 Unknown Completed [facility] HPV9 Unknown Completed [facility] Influenza Virus Vaccine Quad IM, Preserv and ABX Free 6 MO-64 YRS (FLUCELVAX) Unknown Completed [facility] TDAP Unknown Completed [facility] HPV9 Unknown Completed [facility] HPV9 Unknown Completed [facility] HPV9 Unknown Completed [facility] Vital Signs Vital Name Observation Time Observation Value Comments S ource Systolic blood pressure 2023-10-29 03:39:00 136 mm[Hg] [facility] Diastolic blood pressure 2023-10-29 03:39:00 86 mm[Hg] [facility] Heart rate 2023-10-29 03:39:00 89 /min [facility] Body temperature 2023-10-29 03:39:00 37.39 Patsy [facility] Respiratory rate 2023-10-29 03:39:00 14 /min [facility] Body height 2023-10-29 03:39:00 170.2 cm [facility] Body weight 2023-10-29 03:39:00 86.183 kg [facility] BMI 2023-10-29 03:39:00 29.76 kg/m2 [facility] Oxygen saturation in Arterial blood by Pulse oximetry 2023-10-29 03:39:00 100 /min [facility] Systolic blood pressure 2023-05-20 15:39:00 117 mm[Hg] [facility] Diastolic blood pressure 2023-05-20 15:39:00 80 mm[Hg] [facility] Heart rate 2023-05-20 15:39:00 100 /min [facility] Body temperature 2023-05-20 15:39:00 36.67 Patsy [facility] Respiratory rate 2023-05-20 15:39:00 18 /min [facility] Body height 2023-05-20 15:39:00 168.9 cm [facility] Body weight 2023-05-20 15:39:00 77.293 kg [facility] BMI 2023-05-20 15:39:00 27.09 kg/m2 [facility] Oxygen saturation in Arterial blood by Pulse oximetry 2023-05-20 15:39:00 97 /min [facility] Systolic blood pressure 2022-04-19 18:36:00 144 mm[Hg] [facility] Diastolic blood pressure 2022-04-19 18:36:00 78 mm[Hg] [facility] Heart rate 2022-04-19 18:36:00 90 /min [facility] Body temperature 2022-04-19 18:36:00 36.11 Patsy [facility] Body height 2022-04-19 18:36:00 170.2 cm [facility] Body weight 2022-04-19 18:36:00 75.807 kg [facility] BMI 2022-04-19 18:36:00 26.18 kg/m2 [facility] Systolic blood pressure 2022-03-26 20:41:00 136 mm[Hg] [facility] Diastolic blood pressure 2022-03-26 20:41:00 88 mm[Hg] [facility] Heart rate 2022-03-26 20:41:00 76 /min [facility] Body temperature 2022-03-26 20:41:00 36.61 Patsy [facility] Body weight 2022-03-26 20:41:00 84.823 kg [facility] BMI 2022-03-26 20:41:00 29.29 kg/m2 [facility] Body temperature 2022-03-20 18:36:00 36.83 Patsy [facility] Body weight 2022-03-20 18:36:00 85.276 kg [facility] BMI 2022-03-20 18:36:00 29.44 kg/m2 [facility] Systolic blood pressure 2022-03-20 18:36:00 135 mm[Hg] [facility] Diastolic blood pressure 2022-03-20 18:36:00 86 mm[Hg] [facility] Heart rate 2022-03-20 18:36:00 75 /min [facility] Systolic blood pressure 2022-03-05 18:47:00 129 mm[Hg] [facility] Diastolic blood pressure 2022-03-05 18:47:00 76 mm[Hg] [facility] Heart rate 2022-03-05 18:47:00 83 /min [facility] Body temperature 2022-03-05 18:47:00 36.78 Patsy [facility] Body weight 2022-03-05 18:47:00 82.611 kg [facility] BMI 2022-03-05 18:47:00 29.40 kg/m2 [facility] Systolic blood pressure 2022-02-21 19:45:00 130 mm[Hg] [facility] Diastolic blood pressure 2022-02-21 19:45:00 82 mm[Hg] [facility] Heart rate 2022-02-21 19:45:00 102 /min [facility] Body temperature 2022-02-21 19:45:00 36.5 Patsy [facility] Body weight 2022-02-21 19:45:00 81.647 kg [facility] BMI 2022-02-21 19:45:00 29.05 kg/m2 [facility] Systolic blood pressure 2022-02-15 13:44:00 132 mm[Hg] [facility] Diastolic blood pressure 2022-02-15 13:44:00 77 mm[Hg] [facility] Heart rate 2022-02-15 13:44:00 61 /min [facility] Body temperature 2022-02-15 13:44:00 36.56 Patsy [facility] Body weight 2022-02-15 13:44:00 80.74 kg [facility] BMI 2022-02-15 13:44:00 28.73 kg/m2 [facility] Systolic blood pressure 2022-02-01 20:43:00 135 mm[Hg] [facility] Diastolic blood pressure 2022-02-01 20:43:00 82 mm[Hg] [facility] Heart rate 2022-02-01 20:43:00 70 /min [facility] Body temperature 2022-02-01 20:43:00 36.5 Patsy [facility] Body weight 2022-02-01 20:43:00 79.379 kg [facility] BMI 2022-02-01 20:43:00 28.25 kg/m2 [facility] Systolic blood pressure 2022-01-17 20:31:00 126 mm[Hg] [facility] Diastolic blood pressure 2022-01-17 20:31:00 73 mm[Hg] [facility] Heart rate 2022-01-17 20:31:00 88 /min [facility] Body temperature 2022-01-17 20:31:00 36.61 Patsy [facility] Body weight 2022-01-17 20:31:00 79.833 kg [facility] BMI 2022-01-17 20:31:00 29.29 kg/m2 [facility] Heart rate 2022-01-08 14:15:00 78 /min [facility] Oxygen saturation in Arterial blood by Pulse oximetry 2022-01-08 14:15:00 100 /min [facility] Systolic blood pressure 2022-01-08 12:00:00 106 mm[Hg] [facility] Diastolic blood pressure 2022-01-08 12:00:00 51 mm[Hg] [facility] Body temperature 2022-01-08 11:59:00 36.83 Patsy [facility] Respiratory rate 2022-01-08 11:59:00 16 /min [facility] Body height 2022-01-07 09:28:00 170.2 cm [facility] Body weight 2022-01-07 09:28:00 77.565 kg [facility] BMI 2022-01-07 09:28:00 26.78 kg/m2 [facility] Heart rate 2021-12-25 15:30:00 83 /min [facility] Oxygen saturation in Arterial blood by Pulse oximetry 2021-12-25 15:30:00 100 /min [facility] Systolic blood pressure 2021-12-25 15:00:00 97 mm[Hg] [facility] Diastolic blood pressure 2021-12-25 15:00:00 50 mm[Hg] [facility] Body temperature 2021-12-25 15:00:00 36.33 Patsy [facility] Respiratory rate 2021-12-25 15:00:00 18 /min [facility] Body height 2021-12-24 13:04:00 167.6 cm [facility] Body weight 2021-12-24 13:04:00 78.472 kg [facility] BMI 2021-12-24 13:04:00 27.92 kg/m2 [facility] Systolic blood pressure 2021-12-13 20:31:00 122 mm[Hg] [facility] Diastolic blood pressure 2021-12-13 20:31:00 76 mm[Hg] [facility] Heart rate 2021-12-13 20:31:00 82 /min [facility] Body temperature 2021-12-13 20:31:00 37.56 Patsy [facility] Respiratory rate 2021-12-13 20:31:00 18 /min [facility] Body height 2021-12-13 20:31:00 167.6 cm [facility] Body weight 2021-12-13 20:31:00 76.93 kg [facility] BMI 2021-12-13 20:31:00 27.37 kg/m2 [facility] Systolic blood pressure 2021-11-19 16:05:00 116 mm[Hg] [facility] Diastolic blood pressure 2021-11-19 16:05:00 55 mm[Hg] [facility] Heart rate 2021-11-19 16:05:00 62 /min [facility] Body temperature 2021-11-19 16:05:00 36.94 Patsy [facility] Respiratory rate 2021-11-19 16:05:00 18 /min [facility] Body height 2021-11-19 16:05:00 167.6 cm [facility] Body weight 2021-11-19 16:05:00 76.204 kg [facility] BMI 2021-11-19 16:05:00 27.12 kg/m2 [facility] Systolic blood pressure 2021-11-01 02:32:00 112 mm[Hg] [facility] Diastolic blood pressure 2021-11-01 02:32:00 63 mm[Hg] [facility] Heart rate 2021-11-01 02:32:00 65 /min [facility] Respiratory rate 2021-11-01 02:32:00 16 /min [facility] Oxygen saturation in Arterial blood by Pulse oximetry 2021-11-01 02:32:00 99 /min [facility] Body temperature 2021-11-01 00:01:00 37.33 Patsy [facility] Body height 2021-11-01 00:01:00 167.6 cm [facility] Body weight 2021-11-01 00:01:00 74.844 kg [facility] BMI 2021-11-01 00:01:00 26.63 kg/m2 [facility] Systolic blood pressure 2021-10-23 16:53:00 114 mm[Hg] [facility] Diastolic blood pressure 2021-10-23 16:53:00 76 mm[Hg] [facility] Heart rate 2021-10-23 16:53:00 73 /min [facility] Body temperature 2021-10-23 16:53:00 36.83 Patsy [facility] Respiratory rate 2021-10-23 16:53:00 18 /min [facility] Body height 2021-10-23 16:53:00 167.6 cm [facility] Body weight 2021-10-23 16:53:00 74.39 kg [facility] BMI 2021-10-23 16:53:00 26.47 kg/m2 [facility] Systolic blood pressure 2021-10-11 19:24:00 127 mm[Hg] [facility] Diastolic blood pressure 2021-10-11 19:24:00 77 mm[Hg] [facility] Heart rate 2021-10-11 19:24:00 98 /min [facility] Body temperature 2021-10-11 19:24:00 36.67 Patsy [facility] Respiratory rate 2021-10-11 19:24:00 18 /min [facility] Body height 2021-10-11 19:24:00 167.6 cm [facility] Body weight 2021-10-11 19:24:00 74.844 kg [facility] BMI 2021-10-11 19:24:00 26.63 kg/m2 [facility] Systolic blood pressure 2019-11-11 11:47:00 114 mm[Hg] Location: LUE; Position: Sitting [facility] Diastolic blood pressure 2019-11-11 11:47:00 60 mm[Hg] Location: LUE; Position: Sitting [facility] Body height 2019-11-11 11:47:00 65 [in_us] [facility] Weight 2019-11-11 11:47:00 168.3 [lb_av] [facility] Body mass index (BMI) [Ratio] 2019-11-11 11:47:00 28.01 kg/m2 [facility] Body temperature 2019-11-11 11:47:00 98.8 [degF] Method: Oral [facility] Heart Rate 2019-11-11 11:47:00 66 /min [facility] O2 SAT 2019-11-11 11:47:00 98 % [facility] BP Systolic 2019-10-07 13:38:00 114 mm[Hg] Location: LUE; Position: Sitting [facility] BP Diastolic 2019-10-07 13:38:00 72 mm[Hg] Location: LUE; Position: Sitting [facility] Height 2019-10-07 13:38:00 65 [in_us] [facility] Weight 2019-10-07 13:38:00 165.25 [lb_av] [facility] Body Mass Index Calculated 2019-10-07 13:38:00 27.5 kg/m2 [facility] Temperature 2019-10-07 13:38:00 98.2 [degF] Method: Oral [facility] BP Systolic 2018-05-22 11:08:00 118 mm[Hg] Location: LUE; Position: Sitting [facility] BP Diastolic 2018-05-22 11:08:00 70 mm[Hg] Location: LUE; Position: Sitting [facility] Height 2018-05-22 11:08:00 65 [in_us] [facility] Weight 2018-05-22 11:08:00 167 [lb_av] [facility] Body Mass Index Calculated 2018-05-22 11:08:00 27.79 kg/m2 [facility] BP Systolic 2018-03-06 10:02:00 110 mm[Hg] Location: LUE; Position: Sitting [facility] BP Diastolic 2018-03-06 10:02:00 68 mm[Hg] Location: LUE; Position: Sitting [facility] Weight 2018-03-06 10:02:00 166 [lb_av] [facility] Temperature 2018-03-06 10:02:00 99 [degF] Method: Oral [facility] Procedures Procedure Date / Time Performed Performing Clinician Source XR FINGERS 2 VW LEFT 2023-10-29 04:01:38 Yoly Hadley i [facility] POCT TEST 2023-10-29 03:54:00 Delaney Hadley [facility] CONSENT/REFUSAL FOR DIAGNOSIS AND TREATMENT 2023-10-29 03:34:35 Doctor Unassigned, [facility] POCT SARS-COV-2 ANTIGEN (BINAX NOW) 2023-05-20 15:52:00 Lucia Pacheco [facility] POCT MOLECULAR STREP 2023-05-20 15:45:00 Unknown, Atte nding [facility] CONSENT/REFUSAL FOR DIAGNOSIS AND TREATMENT 2023-05-20 15:26:44 Doctor Unassigned, [facility] POCT URINALYSIS DIPSTICK 2022-02-01 20:58:00 Randi Verduzco fernanda [facility] SECOND AND THIRD TRIMESTER ULTRASOUND 2022-01-08 21:11:00 Cavlin Arnold [facility] BASIC METABOLIC PANEL (NA, K, CL, CO2, GLUCOSE, BUN, CREATININE, CA) 2022-01-08 09:11:00 Christiano Watters [facility] CBC WITH DIFF 2022-01-08 [facility]:11[facility]PLETE 2022-01-07 18:59:14 Christiano Watters [facility] BLOOD CULTURE SCREEN 2022-01-07 10:40:00 Adum, Ruthie Gross [facility] BLOOD CULTURE SCREEN 2022-01-07 10:30:00 Adum, Ruthie Gross [facility] COMP. METABOLIC PANEL ([id number]) 2022-01-07 10:28:00 Adum, Ruthie Gross [facility] CBC WITH DIFF 2022-01-07 10:28:00 Adum, Ruthie Rodrigues [facility] RAPID INFLUENZA A/B 2022-01-07 10:15:00 Adum, Ruthie Gross [facility] COVID-19 (ID NOW RAPID TESTING) 2022-01-07 10:15:00 Adum, Ruthie Gross [facility] LAB ONLY COVID INTERPRETATION 2022-01-07 10:15:00 Adum, Ruthie Gross [facility] URINALYSIS 2022-01-07 10:13:00 Adum, Ruthie Gross [facility] URINE CULTURE 2022-01-07 10:13:00 Adum, Ruthie Rodrigues [facility] ASSIGNMENT OF BENEFITS 2022-01-07 09:13:42 Docto r Unassigned, [facility] CONSENT/REFUSAL FOR DIAGNOSIS AND TREATMENT 2022-01-07 09:11:13 Doctor Unassigned, [facility] COVID-19 (ID NOW RAPID TESTING) 2021-12-24 16:17:00 Inocente Camilo [facility] XR CHEST 1 VW 2021-12-24 14:19:18 Singer Inocente [facility] MAGNESIUM 2021-12-24 14:04:00 [facility] TROPONIN I 2021-12-24 14:04:00 [facility]ocente Cam[facility] COMP. METABOLIC PANEL ([id number]) 2021-12-24 14:04:00 Singer [facility] CBC WITH DIFF 2021-12-24 14:04:00 Singer [facility] D-DIMER 2021-12-24 14:04:00 Inocente Camilo [facility] URINALYSIS 2021-12-24 14:04:00 Singer Inocente [facility] CONSENT/REFUSAL FOR DIAGNOSIS AND TREATMENT 2021-12-24 12:55:23 Doctor Unassigned, [facility] POCT URINALYSIS W/O SPECIFIC GRAVITY 2021-12-13 20:33:00 Catal[facility] SECOND AND THIRD TRIMESTER ULTRASOUND 2021-12-10 13:30:00 Catal[facility] POCT URINALYSIS W/O SPECIFIC GRAVITY 2021-11-19 00:00:00 Christiano Watters [facility] URINALYSIS 2021-11-01 00:57:00 Carol Chilel [facility] NOTICE OF PRIVACY PRACTICES 2021-10-31 23:51:47 Doctor Unassigned, [facility] CONSENT/REFUSAL FOR DIAGNOSIS AND TREATMENT 2021-10-31 23:50:59 Doctor Unassigned, [facility] >14 WEEKS US LIMITED 2021-10-23 18:53:48 Catal[facility] POCT URINALYSIS W/O SPECIFIC GRAVITY 2021-10-23 00:00:00 [facility] [[facility]] HCG, TOTAL, QN 2019-11-18 00:00:00 [facility] [[facility]] HCG, TOTAL, QN 2019-11-11 00:00:00 [facility] [[facility]] CBC (INCLUDES DIFF/PLT) 2019-11-11 00:00:00 [facility] [QH] ABO GROUP AND RH TYPE (REFL) 2019-11-11 00:00:00 [facility] [[facility]] RPR 2019-10-07 00:00:00 [facility] [[facility]] HIV AB, HIV 1/2, EIA, WITH REFLEXES 2019-10-07 00:00:00 [facility] [QH] HEPATITIS B SURFACE ANTIGEN W/REFL CONFIRM 2019-10-07 00:00:00 [facility] [[facility]] HEPATITIS C ANTIBODY 2019-10-07 00:00:00 [facility] . [facility] - GC/Chlamydia 2019-10-07 00:00:00 [facility] [Q] HIV AB, HIV 1/2, EIA, WITH REFLEXES 2019-10-07 00:00:00 [facility] Encounters Start Date/Time End Date/Time Encounter Type Admission Type Attending Clinicians Care Facility Care Department Encounter ID Source 2022-01-08 11:55:21 Outpatient P [facility] [id number] [facility] 2023-10-28 22:45:00 2023-10-29 00:30:00 Emergency X DELANEY HADLEY [facility] [id number] [facility] 2023-10-28 22:45:00 2023-10-29 00:30:00 Emergency Delaney Hadley [facility] ..840.114 350.1.13.10 4.2.7.2.686 [id number] [facility] 2023-05-20 10:20:00 2023-05-20 10:59:28 Outpatient R LUCIA PACHECO [facility] [id number] [facility] 2023-05-20 10:20:00 2023-05-20 10:59:28 Urgent Care Lucia Pacheco Unknown, Attending [facility] 1..840.114 350.1.13.10 4.2.7.2.686 [id number] [facility] 2023-05-20 00:00:00 2023-05-20 00:00:00 Orders Only Doctor Unassigned, [facility] 1.284.114 350.1.13.10 4.2.7.2.686 [id number] [facility] 2022-05-17 14:45:00 2022-05-17 14:45:[address] [facility] [id number] [facility] 2022-04-19 13:30:00 2022-04-19 14:08:32 Visit Vitor Verduzco [facility] 1.84.114 350.1.13.58 9.2.7.2.686 [id number] [facility] 2022-04-05 14:00:00 2022-04-05 14:00:00 Outpatient UGHANISABELA, COMFORT [facility] [id number] [facility] 2022-04-04 23:40:00 2022-04-04 23:40:00 Outpatient DURGAM, MAGI [facility] [id number] [facility] 2022-03-29 15:15:00 2022-03-29 15:15:00 Outpatient UGMITCHEL, COMFORT [facility] [id number] [facility] 2022-03-26 15:00:00 2022-03-26 16:10:40 Routine Vitor Verduzco [facility] 1.840.114 350.1.13.58 9.2.7.2.686 [id number] [facility] 2022-03-26 15:30:00 2022-03-26 15:37:[address] [facility] [id number] [facility] 2022-03-21 00:00:00 2022-03-21 00:00:00 Telephone Dolan, Equilla Dolan, Equilla [facility] 1 1.2.840.114 350.1.13.58 9.2.7.2.686 [id number] [facility] 2022-03-20 14:00:00 2022-03-20 14:21:14 Routine VerduzcoVitor stokes [facility] 1.2.840.114 350.1.13.58 9.2.7.2.686 [id number] [facility] 2022-03-07 00:00:00 2022-03-07 00:00:00 Telephone Shanon Anton Angela [facility] 1 1.2.840.114 350.1.13.58 9.2.7.2.686 [id number] [facility] 2022-03-07 00:00:00 2022-03-07 00:00:00 Telephone Shanon Anton Angela [facility] 1 1.2.840.114 350.1.13.58 9.2.7.2.686 [id number] [facility] 2022-03-06 00:00:00 2022-03-06 00:00:00 Telephone Shanon Anton Angela [facility] 1 1.2.840.114 350.1.13.58 9.2.7.2.686 [id number] [facility] 2022-03-05 14:00:00 2022-03-05 14:19:18 Routine VerduzcoVtior stokes [facility] 1.2.840.114 350.1.13.58 9.2.7.2.686 [id number] [facility] 2022-02-21 15:00:00 2022-02-21 15:30:00 Routine VerduzcoVitor stokes [facility] 1.2.840.114 350.1.13.58 9.2.7.2.686 [id number] [facility] 2022-02-20 00:00:00 2022-02-20 00:00:00 Telephone Huyukluoglu Shanon Angela [facility]TP [facility] 1 1.2.840.114 350.1.13.58 9.2.7.2.686 [id number] [facility] 2022-02-15 08:30:00 2022-02-15 09:11:32 Routine VerduzcoRandiVitor [facility] 1.2.840.114 350.1.13.58 9.2.7.2.686 [id number] [facility] 2022-02-12 00:00:00 2022-02-12 00:00:00 Telephone Shanon Anton Angela [facility] 1 1.2.840.114 350.1.13.58 9.2.7.2.686 [id number] [facility] 2022-02-07 15:15:00 2022-02-07 15:15:[address] [facility] [id number] [facility] 2022-02-01 15:45:00 2022-02-01 16:26:19 Routine Verduzco, Vitor [facility] 1.2.840.114 350.1.13.58 9.2.7.2.686 [id number] [facility] 2022-01-28 00:00:00 2022-01-28 00:00:00 Telephone Shanon Anton Angela [facility] 1 1.2.840.114 350.1.13.58 9.2.7.2.686 [id number] [facility] 2022-01-21 09:15:00 2022-01-21 09:15:00 Outpatient P [facility] [id number] [facility] 2022-01-17 15:15:00 2022-01-17 16:23:09 Routine VerduzcoRandiVitorfernanda BACA [facility] OD 1.2.840.114 350.1.13.58 9.2.7.2.686 [id number] [facility] 2022-01-11 15:15:00 2022-01-11 15:15:00 Outpatient P [facility] [id number] [facility] 2022-01-10 11:15:00 2022-01-10 11:15:00 Outpatient R CHRISTIANO WATTERS [facility] [id number] [facility] 2022-01-08 15:30:00 2022-01-08 16:17:37 Legal Operations Manager Visit 1, Sabino [facility] Room [facility] OFF[facility] BU[facility] 1.0.114 350.1.13.10 4.2.7.2.686 [id number] [facility] 2022-01-08 15:30:00 2022-01-08 15:30:00 Outpatient P [facility] [id number] [facility] 2022-01-07 04:21:00 2022-01-08 11:55:00 Outpatient P RUTHIE PAT [facility] [id number] [facility] 2022-01-07 04:21:00 2022-01-08 11:55:00 Hospital Encounter Ruthie Pat [facility] 1.840.114 350.1.13.10 4.2.7.2.686 [id number] [facility] 2022-01-07 00:00:00 2022-01-07 00:00:00 Orders Only Doctor Unassigned, [facility] 1.840.114 350.1.13.10 4.2.7.2.686 [id number] [facility] 2021-12-31 00:00:00 2021-12-31 00:00:00 Telephone Christiano Watters [facility] PROFESSIO NAL BUILDING 1.0.114 350.1.13.10 4.2.7.2.686 [id number] [facility] 2021-12-31 00:00:00 2021-12-31 00:00:00 Telephone Christiano Watters [facility] PROFESSIO NAL BUILDING 1.2.840.114 350.1.13.10 4.2.7.2.686 [id number] [facility] 2021-12-24 08:06:00 2021-12-25 11:30:00 Outpatient X LUIS LMEUS [facility] [id number] [facility] 2021-12-24 08:06:00 2021-12-25 11:30:00 Emergency Singer Christiano Cuello Megan [facility] 1.2.840.114 350.1.13.10 4.2.7.2.686 [id number] [facility] 2021-12-24 00:00:00 2021-12-24 00:00:00 Telephone [facility] 1.2.840.114 350.1.13.10 4.2.7.2.686 [id number] [facility] 2021-12-17 15:30:00 2021-12-17 15:30:00 Outpatient R CHRISTIANO WATTERS [facility] [id number] [facility] 2021-12-13 16:30:00 2021-12-13 16:30:00 Routine Visit Calvin Arnold [facility] 1..840.114 [id number] 134 [id number] [facility] 2021-12-13 16:30:00 2021-12-13 16:04:40 Outpatient R CALVIN ARNOLD [facility] [id number] [facility] 2021-12-10 08:00:00 2021-12-10 08:55:25 Legal Operations Manager Visit 1, [facility] Room Davida Hancock [facility] [employer] [facility] [id number] 4.2.7.2.686 [id number] [facility] 2021-12-10 08:00:00 2021-12-10 08:00:00 Outpatient P DAVIDA HANCOCK [facility] [id number] [facility] 2021-12-06 00:00:00 2021-12-06 00:00:00 Telephone Lubna Smith [facility] 1.2.840.114 350.1.13.10 4.2.7.2.686 [id number] 086 [id number] [facility] 2021-11-19 13:45:00 2021-11-19 14:00:00 Legal Operations Manager Visit 2, Christiano Monique [facility] 1.2.840.114 350.1.13.10 4.2.7.2.686 [id number] [facility] 2021-11-19 10:45:00 2021-11-19 11:32:52 Outpatient CHRISTIANO NYE [facility] [id number] [facility] 2021-11-19 10:45:00 2021-11-19 11:32:52 Routine Visit Calvin Arnold Vien [facility] 1..840.114 350.1.13.10 4.2.7.2.686 [id number] 134 [id number] [facility] 2021-11-15 14:30:00 2021-11-15 14:30:00 Outpatient JULISSA OMALLEY [facility] [id number] [facility] 2021-10-31 19:45:00 2021-10-31 21:50:00 Emergency X CAROL CHILEL [facility] ERT [id number] [facility] 2021-10-31 19:45:00 2021-10-31 21:50:00 Emergency Carol Chilel [facility] 1.2.114 350.1.13.10 4.2.7.2.686 [id number] [facility] 2021-10-31 00:00:00 2021-10-31 00:00:00 Orders Only Doctor Unassigned, [place] [facility] 1.20.114 350.1.13.10 4.2.7.2.686 [id number] [id number] [facility] 2021-10-25 00:00:00 2021-10-25 00:00:00 Outpatient SHAHEEN HOLLOWAY [facility] [id number] [facility] 2021-10-23 10:30:00 2021-10-23 11:48:44 Outpatient CALVIN CADENA [facility] [id number] [facility] 2021-10-23 10:30:00 2021-10-23 11:48:44 Routine Visit Calvin Arnold Vivian L [facility] 1.284.114 350.1.13.10 4.2.7.2.686 [id number] 134 [id number] [facility] 2021-10-23 00:00:00 2021-10-23 00:00:00 Telephone Christiano Watters [facility] 1.2.840.114 350.1.13.10 4.2.7.2.686 [id number] 134 [id number] [facility] 2021-10-18 00:00:00 2021-10-18 00:00:00 Telephone Christiano Watters [facility] 1.2840.114 350.1.13.10 4.2.7.2.686 [id number] 134 [id number] [facility] 2021-10-11 13:00:00 2021-10-11 14:00:00 Office Visit Clinic, [facility] Shaheen Patino [facility] 1..840.114 350.1.13.10 4.2.7.2.686 [id number] 093 [id number] [facility] 2021-10-11 13:00:00 2021-10-11 13:00:00 Outpatient R SHAHEEN PATINO [facility] [id number] [facility] 2021-10-09 00:00:00 2021-10-09 00:00:00 Telephone Christiano Watters [facility] 1.2.840.114 350.1.13.10 4.2.7.2.686 [id number] 134 [id number] [facility] 2021-10-02 00:00:00 2021-10-02 00:00:00 Telephone Christiano Watters [facility] 1.2.840.114 350.1.13.10 4.2.7.2.686 [id number] 134 [id number] [facility] 2021-10-01 09:45:00 2021-10-01 09:45:00 Outpatient R [facility] [id number] [facility] 2021-10-01 09:45:00 2021-10-01 09:45:00 Outpatient R [facility] [id number] [facility] 2021-09-30 00:00:00 2021-09-30 00:00:00 Case Management Christiano Watters [facility] 1.2.840.114 350.1.13.10 4.2.7.2.686 [id number] 134 [id number] [facility] 2021-09-28 09:30:00 2021-09-28 09:32:41 Legal Operations Manager Visit 2, Adc Lab Christiano Watters [facility] 1.2.840.114 350.1.13.10 4.2.7.2.686 [id number] [facility] 2021-09-28 09:30:00 2021-09-28 09:30:00 Outpatient R CHRISTIANO WATTERS [facility] [id number] [facility] 2021-09-27 13:00:00 2021-09-27 13:20:53 Outpatient R CHRISTIANO WATTERS [facility] [id number] [facility] 2021-09-27 13:00:00 2021-09-27 13:20:53 Routine Visit Christiano Watters [facility] 1.2.840.114 350.1.13.10 4.2.7.2.686 [id number] 134 [id number] [facility] 2021-09-27 00:00:00 2021-09-27 00:00:00 Patient Secure Msg Christiano Watters [facility] 1.2.840.114 350.1.13.10 4.2.7.2.686 [id number] 134 [id number] [facility] 2021-09-27 00:00:00 2021-09-27 00:00:00 Orders Only Doctor Unassigned, [place] [facility] 1.284.114 350.1.13.10 4.2.7.2.686 [id number] [id number] [facility] 2021-09-21 00:00:00 2021-09-21 00:00:00 Telephone Christiano Watters [facility] 1.2.840.114 350.1.13.10 4.2.7.2.686 [id number] 134 [id number] [facility] 2021-09-14 00:00:00 2021-09-14 00:00:00 Patient Secure Msg Doctor Unassigned, [place] [facility] 1.2840.114 350.1.13.10 4.2.7.2.686 [id number] 134 [id number] [facility] 2021-09-04 00:00:00 2021-09-04 00:00:00 Patient Secure Msg Doctor Unassigned, [place] [facility] 1.2840.114 350.1.13.10 4.2.7.2.686 [id number] 134 [id number] [facility] 2021-09-02 00:00:00 2021-09-02 00:00:00 Case Management Catalina [facility] 1.2840.114 350.1.13.10 4.2.7.2.686 [id number] [facility] 2021-08-30 14:00:00 2021-08-30 15:35:18 Outpatient R CHRISTIANO WATTERS [facility] [id number] [facility] 2021-08-30 14:00:00 2021-08-30 15:35:18 Initial Visit Christiano Watters [facility] 1.2840.114 350.1.13.10 4.2.7.2.686 [id number] 134 [id number] [facility] 2021-08-30 00:00:00 2021-08-30 00:00:00 Orders Only Doctor Unassigned, [place] [facility] 1.2840.114 350.1.13.10 4.2.7.2.686 [id number] [id number] [facility] 2021-08-27 15:30:00 2021-08-27 15:44:25 Legal Operations Manager Visit 2, Adc Lab WattersChristiano [facility] 1.2840.114 350.1.13.10 4.2.7.2.686 [id number] [facility] 2021-08-27 15:30:00 2021-08-27 15:30:00 Outpatient R CHRISTIANO WATTERS [facility] [id number] [facility] 2021-08-24 15:30:00 2021-08-24 15:30:00 [facility] [id number] [facility] 2021-08-24 15:30:00 2021-08-24 15:30:00 Legal Operations Manager Visit 2, Adc Lab Christiano Watters [facility] 1.2.840.114 350.1.13.10 4.2.7.2.686 [id number] 353 [id number] [facility] 2021-08-24 00:00:00 2021-08-24 00:00:00 Patient Secure Msg Doctor Unassigned, [place] [facility] 1.2.840.114 350.1.13.10 4.2.7.2.686 [id number] 134 [id number] [facility] 2021-08-22 15:30:00 2021-08-22 15:43:48 Legal Operations Manager Visit 2, [facility] 1.2.840.114 350.1.13.10 4.2.7.2.686 [id number] [facility] 2021-08-22 15:30:00 2021-08-22 15:30:00 Outpatient R CHRISTIANO WATTERS [facility] [id number] [facility] 2021-08-22 00:00:00 2021-08-22 00:00:00 Telephone Christiano Watters [facility] 1.2.840.114 350.1.13.10 4.2.7.2.686 [id number] 134 [id number] [facility] 2021-01-08 09:30:00 2021-01-08 09:30:00 Outpatient CALVIN CADENA [facility] [id number] [facility] 2020-12-13 10:30:00 2020-12-13 10:30:00 Outpatient R CATALINAVIVIENNECY [facility] [id number] [facility] 2020-12-11 00:00:00 2020-12-11 00:00:00 Telephone Catalina [facility] 1.2.840.114 350.1.13.10 4.2.7.2.686 [id number] 134 [id number] [facility] 2020-12-08 16:26:14 2020-12-08 16:46:14 Laboratory Only Lab, [facility] Fam Thomas Abreu [facility] Office Building One 1.2.840.114 350.1.13.10 4.2.7.2.686 [id number] 044 [id number] [facility] 2020-12-08 09:44:41 2020-12-08 09:59:41 Legal Operations Manager Visit 2, Adc Lab Christiano Watters [facility] 1.2.840.114 350.1.13.10 4.2.7.2.686 [id number] 353 [id number] [facility] 2020-12-08 09:30:00 2020-12-08 09:30:00 Outpatient R [facility] [id number] [facility] 2020-12-07 10:44:10 2020-12-07 11:23:41 Office Visit Catalina [facility] 1.2.840.114 350.1.13.10 4.2.7.2.686 [id number] 134 [id number] [facility] 2020-12-07 10:30:00 2020-12-07 10:30:00 Outpatient R CATALINA [facility] [id number] [facility] 2020-12-07 00:00:00 2020-12-07 00:00:00 Orders Only Doctor Unassigned, [place] [facility] 1.2.840.114 350.1.13.10 4.2.7.2.686 [id number] [id number] [facility] 2020-04-09 00:00:00 2020-04-09 00:00:00 Letter (Out) Philomena Gerber [facility] 1.2840.114 350.1.13.10 4.2.7.2.686 [id number] [id number] [facility] 2020-04-09 00:00:00 2020-04-09 00:00:00 Patient Secure Msg Doctor Unassigned, [place] [facility] 1.2840.114 350.1.13.10 4.2.7.2.686 [id number] 019 [id number] [facility] 2020-04-07 16:03:22 2020-04-07 16:23:22 Laboratory Only Lab, [facility] 1.840.114 350.1.13.10 4.2.7.2.686 [id number] 044 [id number] [facility] 2020-04-07 16:20:00 2020-04-07 16:20:00 Outpatient R THOMAS VELASCO [facility] [id number] [facility] 2020-03-05 00:00:00 2020-03-05 00:00:00 Patient Secure Msg Doctor Unassigned, [place] [facility] 1.840.114 350.1.13.10 4.2.7.2.686 [id number] [facility] 2020-03-04 00:00:00 2020-03-04 00:00:00 Telephone Ollie Chambers [facility] 1.840.114 350.1.13.10 4.2.7.2.686 [id number] [id number] [facility] 2020-03-01 13:00:02 2020-03-01 13:20:02 Urgent Care Pob1, Acute Care Clinic Tohmas Velasco [facility] Building One 1..840.114 350.1.13.10 4.2.7.2.686 [id number] 044 [id number] [facility] 2020-03-01 13:20:00 2020-03-01 13:20:00 Outpatient R THOMAS VELASCO [facility] [id number] [facility] 2020-03-01 00:00:00 2020-03-01 00:00:00 Letter (Out) Doctor Unassigned, [place] [facility] 1..840.114 350.1.13.10 4.2.7.2.686 [id number] [facility] 2019-11-11 11:30:00 2019-11-11 11:30:00 Appointmen t; VIKTORIA ARANDA M.D. CROSS, TAMIKA, M.D. [facility] [id number] [place] [facility] 2019-10-07 13:45:00 2019-10-07 13:45:00 Appointmen t; VIKTORIA ARANDA M.D. CROSS, TAMIKA, M.D. [facility] [id number] [place] [facility] 2018-05-22 11:15:00 2018-05-22 11:15:00 Appointmen t; MAURICE AGUIRRE M.D. UGHANZE, COMFORT, M.D. [facility] [id number] [place] [facility] 2018-03-06 09:45:00 2018-03-06 09:45:00 Appointmen t; MAURICE AGUIRRE M.D. UGHANZE, COMFORT, M.D. [facility] [id number] [place] [facility] [place] Results Test Description Test Time Test Comments Results Resul t Comments Source XR FINGERS 2 VW LEFT 2023-10-29 05:19:40 Exam: XR FINGERS 2 VW LEFT, 10/28/2023 10:45 PM. Ordering Physician: DELANEY HADLEY. History: Injury to left middle finger . Technique: XR FINGERS 2 VW LEFT Comparison: None. Findings: See below. [facility] [id number] 15:53:10* Test Item Value Reference Range Interpretation Comme nts POCT Molecular Strep (test c ode = 24940-7) Negative Negative Lab Interpretation (test cod e = 48181-9) Normal [facility] SARS-COV-2 ANTIGEN (BINAX NOW)2023-05-20 15:52:00* Test Item Value Reference Range Interpretation Comme nts POCT SARS-COV-2 ANTIGEN (test code = 83816-2) Not Detected Not Detected On board controls acceptable with C Line (test code = 3574) Yes DANIELLE (test code = DANIELLE) accurate developme nt and interpretation of all internal controls Lab Interpretation (test code = 45021-2) [id number] 20:58:00* Test Item Value Reference Range Interpretation Comme nts Color, UA (test code = 1076) Yellow Clarity, UA (test code = 1763243) Clear Glucose, UA (test code = 9995957) Negative Negative Bilirubin, UA (test code = 6720297) Negative Negative Ketones, Urine (test code = 42720-6) Negative Negative, Trace Spec Grav, UA (test code = 784274715) Blood, UA (test code = 426134643) Negative pH, UA (test code = 3561732) 5.0-8.5 Protein, UA (test code = 0210099) Negative Negative, Trace, 200(+2)mg/dL, 15/mg/dL Urobilinogen, UA (test code = 1343630) See_Comment [Automated Beboa ge] The system which generated this result transmitted reference range: 0.2. The reference range was not used to interpret this result as normal/abnormal. Nitrite, UA (test code = 5477424) Negative Negative, Trace Leukocytes, UA (test code = 5098910) Negative Negative, Trace Lab Interpretation (test code = 76253-2) Normal [facility] WITH [id number] 11:36:18* Test Item Value Reference Range Interpretation Comme nts WBC (test code = 6690-2) See_Comment H [Automated messa ge] The system which generated this result transmitted reference range: 4.30 - 11.10 10*3/?L. The reference range was not used to interpret this result as normal/abnormal. RBC (test code = 789-8) See_Comment L [Automated messa ge] The system which generated this result transmitted reference range: 3.93 - 5.25 10*6/?L. The reference range was not used to interpret this result as normal/abnormal. HGB (test code = 718-7) 10.6 g/dL 11.6-15.0 L HCT (test code = 4544-3) 31.5 % 35.7-45.2 L MCV (test code = 787-2) 91.6 fL 80.6-95.5 MCH (test code = 785-6) 30.8 pg 25.9-32.8 MCHC (test code = 786-4) 33.7 g/dL 31.6-35.1 RDW-SD (test code = 40561-1) 42.8 fL 39.0-49.9 RDW-CV (test code = 788-0) 13.0 % 12.0-15.5 PLT (test code = 777-3) See_Comment [Automated messa ge] The system which generated this result transmitted reference range: 166 - 358 10*3/?L. The reference range was not used to interpret this result as normal/abnormal. MPV (test code = 70304-1) 10.0 fL 9.5-12.9 NRBC/100 WBC (test code = 7760688053) See_Comment [Automated [employer] ssage] The system which generated this result transmitted reference range: 0.0 - 10.0 /100 WBCs. The reference range was not used to interpret this result as normal/abnormal. NRBC x10^3 (test code = 1827715776) <0.01 See_Comment [Automated messa ge] The system which generated this result transmitted reference range: 10*3/?L. The reference range was not used to interpret this result as normal/abnormal. GRAN MAT (NEUT) % (test code = 770-8) 77.6 % IMM GRAN % (test code = 3466445608) 0.70 % LYMPH % (test code = 736-9) 14.5 % MONO % (test code = 5905-5) 6.5 % EOS % (test code = 713-8) 0.2 % BASO % (test code = 706-2) 0.5 % GRAN MAT x10^3(ANC) (test code = 7844338586) 9.50 10*3/uL 1.88-7.09 H IMM GRAN x10^3 (test code = 0891147199) 0.08 10*3/uL 0.00-0.06 H LYMPH x10^3 (test code = 731-0) 1.77 10*3/uL 1.32-3.29 MONO x10^3 (test code = 742-7) 0.79 10*3/uL 0.33-0.92 EOS x10^3 (test code = 711-2) 0.03 10*3/uL 0.03-0.39 BASO x10^3 (test code = 704-7) 0.06 10*3/uL 0.01-0.07 PLT ESTIMATE (test code = 9317-9) Normal Normal Lab Interpretation (test code = 85348-5) Abnormal [facility] METABOLIC PANEL (NA, K, CL, CO2, GLUCOSE, BUN, CREATININE, CA)2022-01-08 09:32:30* Test Item Value Reference Range Interpretation Comme nts NA (test code = 4325527884) 135 mmol/L 135-145 K (test code = 0594344537) 3.7 mmol/L 3.5-5.0 CL (test code = 3271861636) 110 mmol/L 98-108 H CO2 TOTAL (test code = 1700777085) 20 mmol/L 23-31 L AGAP (test code = 1926518714) 2-16 BUN (test code = 6325346135) 3 mg/dL 7-23 L GLUCOSE (test code = 3815515271) 78 mg/dL 70-110 CREATININE (test code = 9916948373) 0.51 mg/dL 0.50-1.04 CALCIUM (test code = 6560178959) 8.4 mg/dL 8.6-10.6 L eGFR (test code = 6216544336) mL/min/1.73m2 DANIELLE (test code = DANIELLE) Association of Glomerular Filtration Rate (GFR) and Staging of Kidney Disease* + --+ --+ ------+| GFR (mL/min/1.73 m2) ?| With Kidney Damage ?| ?Without Kidney Damage+ --------+ --------+ +| ?>90 ?| ?Stage one ?| ? Normal ?+ ---+ ---+ -------+| ?60-89 ?| ?Stage two ?| ? Decreased GFR ? + --+ --+ ------+| ?30-59 ?| ?Stage three ?| ? Stage three ? + --+ --+ ------+| ?15-29 ?| ?Stage four ? | ? Stage four ?+ ---+ ---+ -------+| ?<15 (or dialysis) ? ?| ?Stage five ? | ? Stage five ?+ ---+ ---+ -------+ *Each stage assumes the associated GFR level has been in effect for at least three months. ?Stages 1 to 5, with or without kidney disease, indicate chronic kidney disease. Notes: Determination of stages one and two (with eGFR >59mL/min/1.73 m2) requires estimation of kidney damage for at least three months as defined by structural or functional abnormalities of the kidney, manifested by either:Pathological abnormalities or Markers of kidney damage (including abnormalities in the composition of the blood or urine or abnormalities in imaging tests). Lab Interpretation (test code = 40767-0) Abnormal [facility]. METABOLIC PANEL (73375)2022-01-07 11:02:15* Test Item Value Reference Range Interpretation Comme nts NA (test code = 2365818881) 133 mmol/L 135-145 L K (test code = 3016535311) 3.5 mmol/L 3.5-5.0 CL (test code = 7648440496) 104 mmol/L 98-108 CO2 TOTAL (test code = 6023601918) 21 mmol/L 23-31 L AGAP (test code = 4331501899) 2-16 BUN (test code = 7049805159) 7 mg/dL 7-23 GLUCOSE (test code = 7343912271) 93 mg/dL 70-110 CREATININE (test code = 5372652630) 0.56 mg/dL 0.50-1.04 TOTAL BILI (test code = 8292450920) 0.4 mg/dL 0.1-1.1 CALCIUM (test code = 0235279465) 8.8 mg/dL 8.6-10.6 T PROTEIN (test code = 5656290761) 6.3 g/dL 6.3-8.2 ALBUMIN (test code = 4941161942) 3.4 g/dL 3.5-5.0 L ALK PHOS (test code = 5982695822) 79 U/L 34-122 ALTv (test code = 1742-6) 17 U/L 5-35 AST(SGOT) (test code = 4650966289) 22 U/L 13-40 eGFR (test code = 6979280279) mL/min/1.73m2 DANIELLE (test code = DANIELLE) Association of Glomerular Filtration Rate (GFR) and Staging of Kidney Disease* + --+ --+ ------+| GFR (mL/min/1.73 m2) ?| With Kidney Damage ?| ?Without Kidney Damage+ --------+ --------+ +| ?>90 ?| ?Stage one ?| ? Normal ?+ ---+ ---+ -------+| ?60-89 ?| ?Stage two ?| ? Decreased GFR ? + --+ --+ ------+| ?30-59 ?| ?Stage three ?| ? Stage three ? + --+ --+ ------+| ?15-29 ?| ?Stage four ? | ? Stage four ?+ ---+ ---+ -------+| ?<15 (or dialysis) ? ?| ?Stage five ? | ? Stage five ?+ ---+ ---+ -------+ *Each stage assumes the associated GFR level has been in effect for at least three months. ?Stages 1 to 5, with or without kidney disease, indicate chronic kidney disease. Notes: Determination of stages one and two (with eGFR >59mL/min/1.73 m2) requires estimation of kidney damage for at least three months as defined by structural or functional abnormalities of the kidney, manifested by either:Pathological abnormalities or Markers of kidney damage (including abnormalities in the composition of the blood or urine or abnormalities in imaging tests). Lab Interpretation (test code = 49115-0) Abnormal [facility] WITH [id number] 10:46:53* Test Item Value Reference Range Interpretation Comme nts WBC (test code = 6690-2) See_Comment H [Automated message] The system which generated this result transmitted reference range: 4.30 - 11.10 10*3/?L. The reference range was not used to interpret this result as normal/abnormal. RBC (test code = 789-8) See_Comment L [Automated message] The system which generated this result transmitted reference range: 3.93 - 5.25 10*6/?L. The reference range was not used to interpret this result as normal/abnormal. HGB (test code = 718-7) 10.5 g/dL 11.6-15.0 L HCT (test code = 4544-3) 30.7 % 35.7-45.2 L MCV (test code = 787-2) 90.6 fL 80.6-95.5 MCH (test code = 785-6) 31.0 pg 25.9-32.8 MCHC (test code = 786-4) 34.2 g/dL 31.6-35.1 RDW-SD (test code = 93078-6) 41.5 fL 39.0-49.9 RDW-CV (test code = 788-0) 12.7 % 12.0-15.5 PLT (test code = 777-3) See_Comment [Automated message] The system which generated this result transmitted reference range: 166 - 358 10*3/?L. The reference range was not used to interpret this result as normal/abnormal. MPV (test code = 44041-7) 9.8 fL 9.5-12.9 NRBC/100 WBC (test code = 1682231523) See_Comment [Automated message] The system which generated this result transmitted reference range: 0.0 - 10.0 /100 WBCs. The reference range was not used to interpret this result as normal/abnormal. NRBC x10^3 (test code = 3694638584) <0.01 See_Comment [Automated message] The system which generated this result transmitted reference range: 10*3/?L. The reference range was not used to interpret this result as normal/abnormal. GRAN MAT (NEUT) % (test code = 770-8) 87.5 % IMM GRAN % (test code = 9669391303) 0.40 % LYMPH % (test code = 736-9) 6.4 % MONO % (test code = 5905-5) 5.4 % EOS % (test code = 713-8) 0.1 % BASO % (test code = 706-2) 0.2 % GRAN MAT x10^3(ANC) (test code = 3098518642) 12.98 10*3/uL 1.88-7.09 H IMM GRAN x10^3 (test code = 4641850235) 0.06 10*3/uL 0.00-0.06 LYMPH x10^3 (test code = 731-0) 0.95 10*3/uL 1.32-3.29 L MONO x10^3 (test code = 742-7) 0.80 10*3/uL 0.33-0.92 EOS x10^3 (test code = 711-2) <0.03 0.03-0.39 L BASO x10^3 (test code = 704-7) 0.03 10*3/uL 0.01-0.07 Lab Interpretation (test code = 44768-1) Abnormal [facility] [id number] 15:01:10* Test Item Value Reference Range Interpretation Comments TROPONIN I (test code = 4361182333) 0.002 ng/mL See_Comment [Automated message] The system which generated this result transmitted reference range: <=0.034. The reference range was not used to interpret this result as normal/abnormal. DANIELLE (test code = DANIELLE) Reference (Normal) Range (defined by the 99th percentile reference limit): <= 0.034 ng/mL Note: Cardiac troponin begins to rise 3-4 hours after the onset of ischemia. Repeat in 4-6 hours if the sample was drawn within 3-4 hours of the onset of the symptom and found normal. Diagnosis of myocardial injury is made with acute changes in cTn concentrations with at least one serial sample above the 99th percentile upper reference limit (URL), taken together with the patient's clinical presentation. Biotin has been reported to cause a negative bias, interpret results relative to patient's use of biotin. Lab Interpretation (test code = 94656-4) Normal [facility]. METABOLIC PANEL (02171)2021-12-24 14:50:10* Test Item Value Reference Range Interpretation Comme nts NA (test code = 8333069888) 135 mmol/L 135-145 K (test code = 0067773465) 3.6 mmol/L 3.5-5.0 CL (test code = 9758642661) 104 mmol/L 98-108 CO2 TOTAL (test code = 0754430487) 22 mmol/L 23-31 L AGAP (test code = 7611656697) 2-16 BUN (test code = 5018948474) 4 mg/dL 7-23 L GLUCOSE (test code = 3455996792) 83 mg/dL 70-110 CREATININE (test code = 5079125596) 0.48 mg/dL 0.50-1.04 L TOTAL BILI (test code = 2553020756) 0.6 mg/dL 0.1-1.1 CALCIUM (test code = 8887571808) 8.6 mg/dL 8.6-10.6 T PROTEIN (test code = 7470709510) 6.1 g/dL 6.3-8.2 L ALBUMIN (test code = 8317124401) 3.4 g/dL 3.5-5.0 L ALK PHOS (test code = 2330781711) 79 U/L 34-122 ALTv (test code = 1742-6) 28 U/L 5-35 AST(SGOT) (test code = 0788997240) 37 U/L 13-40 eGFR (test code = 1839999002) mL/min/1.73m2 DANIELLE (test code = DANIELLE) [employer] of Glomerular Filtration Rate (GFR) and Staging of Kidney Disease* + --+ --+ ------+| GFR (mL/min/1.73 m2) ?| With Kidney Damage ?| ?Without Kidney Damage+ --------+ --------+ +| ?>90 ?| ?Stage one ?| ? Normal ?+ ---+ ---+ -------+| ?60-89 ?| ?Stage two ?| ? Decreased GFR ? + --+ --+ ------+| ?30-59 ?| ?Stage three ?| ? Stage three ? + --+ --+ ------+| ?15-29 ?| ?Stage four ? | ? Stage four ?+ ---+ ---+ -------+| ?<15 (or dialysis) ? ?| ?Stage five ? | ? Stage five ?+ ---+ ---+ -------+ *Each stage assumes the associated GFR level has been in effect for at least three months. ?Stages 1 to 5, with or without kidney disease, indicate chronic kidney disease. Notes: Determination of stages one and two (with eGFR >59mL/min/1.73 m2) requires estimation of kidney damage for at least three months as defined by structural or functional abnormalities of the kidney, manifested by either:Pathological abnormalities or Markers of kidney damage (including abnormalities in the composition of the blood or urine or abnormalities in imaging tests). Lab Interpretation (test code = 40788-0) [facility]10* Test Item Value Reference Range Interpretation Comme nts MAGNESIUM (test code = 3211277033) 1.6 mg/dL 1.7-2.4 L Lab Interpretation (test cod e = 71577-7) [id number] 14:48:49* Test Item Value Reference Range Interpretation Comments D-DIMER (test code = 4858227526) See_Comment H [Automated message] The system which generated this result transmitted reference range: <0.41 ?g/mL (FEU). The reference range was not used to interpret this result as normal/abnormal. DANIELLE (test code = DANIELLE) This test may be used in conjunction with a clinical pretest probability (PTP) assessment model to exclude venous thromboembolism (VTE) in patients suspected of deep venous thrombosis (DVT) and pulmonary embolism (PE) A D-Dimer value less than 0.50 ?g/ml (FEU) has a negative predicative value of 96 to 100% (95% CI)and 97 to 100% (95% CI) as an aid in the diagnosis of deep vein thrombosis (DVT) and pulmonary embolism when there is low or moderate pretest probability of PE or DVT. D-Dimer values are expressed in initial fibrinogen equivalent units (FEU)" The assay results should be used with other information, including the clinical context, in forming a diagnosis. Lab Interpretation (test code = 17945-1) Abnormal [facility] WITH [id number] 14:37:49* Test Item Value Reference Range Interpretation Comme nts WBC (test code = 6690-2) See_Comment H [Automated message] The system which generated this result transmitted reference range: 4.30 - 11.10 10*3/?L. The reference range was not used to interpret this result as normal/abnormal. RBC (test code = 789-8) See_Comment L [Automated message] The system which generated this result transmitted reference range: 3.93 - 5.25 10*6/?L. The reference range was not used to interpret this result as normal/abnormal. HGB (test code = 718-7) 10.4 g/dL 11.6-15.0 L HCT (test code = 4544-3) 30.6 % 35.7-45.2 L MCV (test code = 787-2) 93.0 fL 80.6-95.5 MCH (test code = 785-6) 31.6 pg 25.9-32.8 MCHC (test code = 786-4) 34.0 g/dL 31.6-35.1 RDW-SD (test code = 21979-5) 45.4 fL 39.0-49.9 RDW-CV (test code = 788-0) 13.3 % 12.0-15.5 PLT (test code = 777-3) See_Comment [Automated message] The system which generated this result transmitted reference range: 166 - 358 10*3/?L. The reference range was not used to interpret this result as normal/abnormal. MPV (test code = 58198-0) 9.5 fL 9.5-12.9 NRBC/100 WBC (test code = 7600534727) See_Comment [Automated message] The system which generated this result transmitted reference range: 0.0 - 10.0 /100 WBCs. The reference range was not used to interpret this result as normal/abnormal. NRBC x10^3 (test code = 4039975007) <0.01 See_Comment [Automated message] The system which generated this result transmitted reference range: 10*3/?L. The reference range was not used to interpret this result as normal/abnormal. GRAN MAT (NEUT) % (test code = 770-8) 86.4 % IMM GRAN % (test code = 3369436412) 0.50 % LYMPH % (test code = 736-9) 7.0 % MONO % (test code = 5905-5) 5.7 % EOS % (test code = 713-8) 0.1 % BASO % (test code = 706-2) 0.3 % GRAN MAT x10^3(ANC) (test code = 9558562428) 12.13 10*3/uL 1.88-7.09 H IMM GRAN x10^3 (test code = 8360011760) 0.07 10*3/uL 0.00-0.06 H LYMPH x10^3 (test code = 731-0) 0.98 10*3/uL 1.32-3.29 L MONO x10^3 (test code = 742-7) 0.80 10*3/uL 0.33-0.92 EOS x10^3 (test code = 711-2) <0.03 0.03-0.39 L BASO x10^3 (test code = 704-7) 0.04 10*3/uL 0.01-0.07 Lab Interpretation (test code = 51604-4) Abnormal [facility] URINALYSIS W/O SPECIFIC [id number] 20:33:00* Test Item Value Reference Range Interpretation Comme nts POCT PH U (test code = 3254) n/a 5-8 POCT U LEUK EST (test code = 3263) n/a Negative - N egative POCT U NIT (test code = 3262) n/a Negative - Negati ve POCT U PROT (test code = 3259) trace Negative - Negat luis daniel POCT U GLU (test code = 3256) Negative - Negati ve POCT U KETONE (test code = 3258) n/a Negative - Neg ative POCT U BLD (test code = 3257) n/a Negative - Negati ve [facility] URINALYSIS W/O SPECIFIC [id number] 16:14:00* Test Item Value Reference Range Interpretation Comme nts POCT PH U (test code = 3254) N/A 5-8 POCT U LEUK EST (test code = 3263) N/A Negative - Negative POCT U NIT (test code = 3262) N/A Negative - Negati ve POCT U PROT (test code = 3259) Negative Negative - Negat luis daniel POCT U GLU (test code = 3256) Negative Negative - Negati ve POCT U KETONE (test code = 3258) N/A Negative - Neg ative POCT U BLD (test code = 3257) N/A Negative - Negati ve [facility]/O SPECIFIC [id number] 19:04:00* Test Item Value Reference Range Interpretation Comme nts POCT PH U (test code = 3254) n/a 5-8 POCT U LEUK EST (test code = 3263) n/a Negative - N egative POCT U NIT (test code = 3262) n/a Negative - Negati ve POCT U PROT (test code = 3259) Trace Negative - Negat luis daniel POCT U GLU (test code = 3256) normal Negative - Negati ve POCT U KETONE (test code = 3258) n/a Negative - Neg ative POCT U BLD (test code = 3257) n/a Negative - Negati ve [facility][] HCG, TOTAL, [id number] 13:09:00* Test Item Value Reference Range Interpretation Comme nts HCG, TOTAL, QN (test code = HCG, TOTAL, QN) 8 {miU/ml} Reference RangeN on or premenopausal <5Postmenopausal <10 Values from different assay methods may vary.The use of this assay to monitor or to diagnose patients with cancer or any condition unrelatedto has not been cleared or approved bythe FDA or the explosives handler of the assay. Women with hCG values between 5 and 25 mIU/mLshould have the result confirmed by repeatanalysis in 2 to 4 days if clinically indicated. Values less than 10 are considered normal forpost-menopausal females. [facility]] CBC (INCLUDES DIFF/PLT)2019-11-11 13:47:00* Test Item Value Reference Range Interpretation Comme nts WHITE BLOOD CELL COUNT (test code = WHITE BLOOD CELL COUNT) 7.0 {Thousand/u} 4.5-13.0 N RED BLOOD CELL COUNT (test code = RED BLOOD CELL COUNT) 4.22 {Million/uL} 3.80-5.10 N HEMAGLOBIN; Normal (test code = 52631-7) 12.9 g/dl 11.5-15.3 N HEMATOCRIT; Normal (test code = 4544-3) 38.3 % 34.0-46.0 N MCV; Normal (test code = 787-2) 90.8 fL 78.0-98.0 N MCHC; Normal (test code = 63134-9) 33.7 g/dl 31.0-36.0 N RDW; Normal (test code = 788-0) 13.0 % 11.0-15.0 N PLATELET COUNT; Normal (test code = 777-3) 231 {Thousand/u} 140-400 N MPV; Normal (test code = 73553-5) 10.5 fL 7.5-12.5 N ABSOLUTE NEUTROPHILS (test code = ABSOLUTE NEUTROPHILS) 4865 {cells/uL} 9320-9591 N ABSOLUTE LYMPHOCYTES (test code = ABSOLUTE LYMPHOCYTES) 1757 {cells/uL} 3489-6428 N ABSOLUTE MONOCYTES (test code = ABSOLUTE MONOCYTES) 301 {cells/uL} 200-900 N ABSOLUTE EOSINOPHILS (test code = ABSOLUTE EOSINOPHILS) 49 {cells/uL} 15-500 N ABSOLUTE BASOPHILS (test code = ABSOLUTE BASOPHILS) 28 {cells/uL} 0-200 N NEUTROPHILS (test code = NEUTROPHILS) 69.5 % N LYMPHOCYTES (test code = LYMPHOCYTES) 25.1 % N MONOCYTES; Normal (test code = 70513-3) 4.3 % N EOSINOPHILS; Normal (test code = 80363-5) 0.7 % N BASOPHILS; Normal (test code = 48106-2) 0.4 % N [facility]] HCG, TOTAL, [id number] 13:47:00* Test Item Value Reference Range Interpretation Comme nts HCG, TOTAL, QN (test code = HCG, TOTAL, QN) 399 {miU/ml} Reference RangeN on or premenopausal <5Postmenopausal <10 Values from different assay methods may vary.The use of this assay to monitor or to diagnose patients with cancer or any condition unrelatedto has not been cleared or approved bythe FDA or the explosives handler of the assay. [facility]] ABO GROUP AND RH TYPE (REFL)2019-11-11 13:47:00* Test Item Value Reference Range Interpretation Comme nts ABO GROUP (test code = 883-9) O RH TYPE (REFL) (test code = 18622-4) RH(D) POSITIVE For additional information, please refer to http://education.[employer]/faq/FA Q111 (This link is being provided for informational/educatio nal purposes only.) [facility][QL] CBC (INCLUDES DIFF/PLT)2019-11-11 13:47:00* Test Item Value Reference Range Interpretation Comme nts WHITE BLOOD CELL COUNT (test code = WHITE BLOOD CELL COUNT) 7.0 {Thousand/u} 4.5-13.0 N RED BLOOD CELL COUNT (test code = RED BLOOD CELL COUNT) 4.22 {Million/uL} 3.80-5.10 N HEMAGLOBIN; Normal (test code = 29550-3) 12.9 g/dl 11.5-15.3 N HEMATOCRIT; Normal (test code = 4544-3) 38.3 % 34.0-46.0 N MCV; Normal (test code = 787-2) 90.8 fL 78.0-98.0 N MCHC; Normal (test code = 00403-3) 33.7 g/dl 31.0-36.0 N RDW; Normal (test code = 788-0) 13.0 % 11.0-15.0 N PLATELET COUNT; Normal (test code = 777-3) 231 {Thousand/u} 140-400 N MPV; Normal (test code = 85349-5) 10.5 fL 7.5-12.5 N ABSOLUTE NEUTROPHILS (test code = ABSOLUTE NEUTROPHILS) 4865 {cells/uL} 1410-4382 N ABSOLUTE LYMPHOCYTES (test code = ABSOLUTE LYMPHOCYTES) 1757 {cells/uL} 8193-1775 N ABSOLUTE MONOCYTES (test code = ABSOLUTE MONOCYTES) 301 {cells/uL} 200-900 N ABSOLUTE EOSINOPHILS (test code = ABSOLUTE EOSINOPHILS) 49 {cells/uL} 15-500 N ABSOLUTE BASOPHILS (test code = ABSOLUTE BASOPHILS) 28 {cells/uL} 0-200 N NEUTROPHILS (test code = NEUTROPHILS) 69.5 % N LYMPHOCYTES (test code = LYMPHOCYTES) 25.1 % N MONOCYTES; Normal (test code = 51715-0) 4.3 % N EOSINOPHILS; Normal (test code = 68643-9) 0.7 % N BASOPHILS; Normal (test code = 12167-1) 0.4 % N [facility]] HCG, TOTAL, [id number] 13:47:00* Test Item Value Reference Range Interpretation Comme nts HCG, TOTAL, QN (test code = HCG, TOTAL, QN) 399 {miU/ml} Reference RangeN on or premenopausal <5Postmenopausal <10 Values from different assay methods may vary.The use of this assay to monitor or to diagnose patients with cancer or any condition unrelatedto has not been cleared or approved bythe FDA or the explosives handler of the assay. [facility][Q] ABO GROUP AND RH TYPE (REFL)2019-11-11 13:47:00* Test Item Value Reference Range Interpretation Comme nts ABO GROUP (test code = 883-9) O RH TYPE (REFL) (test code = 04143-2) RH(D) POSITIVE For additional information, please refer to http://education.[employer]/faq/FA Q111 (This link is being provided for informational/educatio nal purposes only.) [facility][O] Urine Test (in office)2019-11-11 11:46:00* Test Item Value Reference Range Interpretation Comme nts Test, Urine; Abnor mal (test code = 2106-3) POsitive A Control Line Present? (test code = Control Line Present?) Yes N Test Lot# (test code = Test Lot#) [id number] N [facility] Notes Date/Time Note Provider Source 2023-10-29 00:16:44 xKUc+nV+tmnBscgaTpPN EKSPu0Cg5hedLCy U6yHucVYSNZDUgpurppcyzLjNYndc8250-5 10-28T00:16:44 Registration called stating pt said she was leaving. [facility]Hytxtzjfr department CszmCA1654-51-69X21:17:49[facility] NoteTXT1.2.840.336859.1.13.104.2.7. 2.584657|[id number] for patient wqdk06718-8AkgzGFSSAISYXSRWdwsumbee C-CDA narrative [id number] A. Campbell RN[id number] 7PLUCRVVOVZUMAUCCNODPZX7922-23-09C6 0:17:491.2.840.811359.1.72.3.15|1.2 .840.976122.1.13.104.2.7.2.727879_2 [id number] Kaylee Caal RN [facility] 2023-10-28 22:34:57 JlR8APq3AkrQjelNSBy0 tOnL+aX/gHyGUis Hk32sZD+h7+8apFgnU9N2Xc68ZNTm2613-9 10-27T22:34:57 Pt arrived with c/o nail avulsion on the L middle finger. Pt reports slamming her hand in the door by accident. 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 [address]88[address]-9Raeczrfhv department Triage helrES5825-84-71V01:37:52[facility] Triage noteTXT1.2.840.151858.1.13.104.2.7. 2.631673|[id number] for patient ftnb33187-7Htaildqku department NoteLNNARRATIVEFormatted C-CDA narrative [id number] A Diaz RN[id number] 9CDGQSIJFMFPSYMMMACOTWL5102-61-46H7 2:37:521.2.840.695539.1.72.3.15|1.2 .840.849267.1.13.104.2.7.2.727879_2 [id number] Zulma Kirby RN [facility]
--- NOTE | 2023-10-29 02:39 | ER ---
Nurse's Notes [facility] Name: Mini Edmondson Age: 23 yrs Sex: Female : 2000 Arrival Date: 10/29/2023 Time: 01:12 Bed 12 Private MD: Diagnosis: Left middle finger distal phalanx laceration, left middle finger distal phalanx fingernail avulsion, left middle finger crush injury;Left middle finger distal phalanx open fracture Presentation: 10/28 01:27 Chief complaint: Patient states: smashed left middle finger in door and my fingernail lg3 is now hanging. Coronavirus screen: Client denies travel out of the [place] in the last 14 days. At this time, the client does not indicate any symptoms associated with coronavirus-19. Ebola Screen: No symptoms or risks identified at this time. Initial Sepsis Screen: Does the patient meet any 2 criteria? No. Patient's initial sepsis screen is negative. Does the patient have a suspected source of infection? No. Patient's initial sepsis screen is negative. Risk Assessment: Do you want to hurt yourself or someone else? Patient reports no desire to harm self or others. Onset of symptoms was October 29, 2023. 01:27 Method Of Arrival: Ambulatory lg3 01:27 Acuity: GIRISH 4 lg3 Triage Assessment: 01:31 General: Appears in no apparent distress. comfortable. General: Behavior is calm, lg3 cooperative. Pain: Complains of pain in left middle finger. EENT: No deficits noted. No signs and/or symptoms were reported regarding the EENT system. Neuro: No deficits noted. Alexander Agitation-Sedation Scale (RASS): 0 - Alert and Calm Level of Consciousness is awake, alert, obeys commands, Oriented to person, place, time, situation. Cardiovascular: No deficits noted. Denies chest pain, shortness of breath, Capillary refill < 3 seconds Clubbing of nail beds is absent JVD is absent Patient's skin is warm and dry. Respiratory: No deficits noted. Airway is patent Respiratory effort is even, unlabored, Respiratory pattern is regular, symmetrical. GI: No deficits noted. No signs and/or symptoms were reported involving the gastrointestinal system. : No deficits noted. No signs and/or symptoms were reported regarding the genitourinary system. Derm: Skin is intact, is healthy with good turgor, Skin is dry, Skin is normal, Skin temperature is warm Wound noted left middle finger Bruising that is dark purple, on left middle finger. Musculoskeletal: Circulation, motion, and sensation intact. Swelling present in left middle finger. Injury Description: Crush injury. 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 - Social history:: Smoking status: Reported history of juuling and/or vaping. Patient/guardian denies using alcohol, street drugs. - Family history:: not pertinent. Screenin:40 [facility] ED Fall Risk Assessment (Adult) History of falling in the last 3 months, lg3 including since admission No falls in past 3 months (0 pts). Abuse screen: Denies threats or abuse. Denies injuries from another. Nutritional screening: No deficits noted. Tuberculosis screening: No symptoms or risk factors identified. Assessment: 01:40 General: see triage assessment. lg3 02:39 Reassessment: Patient appears in no apparent distress at this time. Patient and/or lg3 family updated on plan of care and expected duration. Pain level reassessed. Patient is alert, oriented x 3, equal unlabored respirations, skin warm/dry/pink. Patient states feeling better. Patient states symptoms have improved. Vital Signs: 01:27 BP 130 / 87; Pulse 65; Resp 16 S; Temp 97.7(TE); Pulse Ox 100% on R/A; Weight 86.18 kg lg3 (R); Height 5 ft. 7 in. (R); 02:40 BP 126 / 81; Pulse 69; Resp 16 S; Temp 97.4(TE); Pulse Ox 100% on R/A; lg3 01:27 Body Mass Index 29.76 (86.18 kg, 170.18 cm) lg3 Favio Coma Score: 21:33 Eye Response: spontaneous(4). Motor Response: obeys commands(6). Verbal Response: sp4 oriented(5). Total: 15. ED Course: 01:13 Patient arrived in ED. jj6 01:27 Cornelio Marshall MD is Attending Physician. sp4 01:31 Triage completed. lg3 01:31 Arm band placed on right wrist. lg3 01:40 Chaya Marie RN is Primary Nurse. lg3 01:40 Patient has correct armband on for positive identification. Bed in low position. Call lg3 light in reach. Side rails up X 1. Client placed on continuous cardiac and pulse oximetry monitoring. NIBP monitoring applied. Door closed. Noise minimized. Warm blanket given. 01:40 Patient maintains SpO2 saturation greater than 95% on room air. Irrigation of lg3 laceration on left middle finger irrigated with normal saline Patient tolerated well. 01:59 Hand Left 3 View XRAY In Process Unspecified. EDMS 02:36 Tank Mckeon MD is Referral Physician. sp4 02:39 Assist provider with laceration repair on left middle finger that was 2.5 cm. or less lg3 using sutures. Set up tray. Performed by Cornelio Marshall MD Dressed with Xeroform, Patient tolerated well. Assist provider with nail repair of excision of nail. of left middle finger using excision of nail. Set up for procedure. Performed by Cornelio Marshall MD Dressed with Vaseline gauze, Patient tolerated well. 02:50 Patient did not have IV access during this emergency room visit. lg3 Administered Medications: 02:39 Drug: Lidocaine Infiltration (1 %) 20 ml 20 ml Infiltration once; to bedside Volume: 20 lg3 ml; Route: Infiltration; Medication: 02:39 VIS not applicable for this client. lg3 Outcome: 02:38 Discharge ordered by . sp4 02:49 Discharged to home ambulatory, lg3 02:49 Condition: stable 02:49 Discharge instructions given to patient, Instructed on discharge instructions, follow up and referral plans. medication usage, wound care, Demonstrated understanding of instructions, follow-up care, medications, wound care, splint care, Prescriptions given X 2, 02:50 Patient left the ED. lg3 Signatures: Dispatcher [employer] EDMS Chaya Marie RN RN lg3 Sarahi Chowdhury jj6 Cornelio Marshall MD MD sp4 Corrections: (The following items were deleted from the chart) 01:32 01:31 Home Meds: Vitamin Oral tab 1 tab once daily; lg3 lg3 01:32 01:31 PSHx: None; lg3 lg3
--- NOTE | 2023-10-29 02:39 | EDPHYS ---
Physician Documentation [facility] Name: Mini Edmondson Age: 23 yrs Sex: Female : 2000 Arrival Date: 10/29/2023 Time: 01:12 Bed 12 Private MD: ED Physician Cornelio Marshall HPI: 10/28 01:27 This 23 yrs old Female presents to ER via Unassigned with complaints of sp4 Finger Injury. 21:33 Patient is 23-year-old female presents with left middle finger distal phalangeal injury sp4 associated with partial fingernail avulsion. Patient has compressed finger in the door. Patient was seen at [facility] earlier but could not get sufficient care. She has checked out of [facility] and presents to ER for finger pain. . 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 - Social history:: Smoking status: Reported history of juuling and/or vaping. Patient/guardian denies using alcohol, street drugs. - Family history:: not pertinent. ROS: 21:33 Constitutional: Negative for fever, chills, and weight loss, positive left middle sp4 finger pain and fingernail injury 21:33 All other systems are negative, Exam: 21:33 Constitutional: This is a well developed, well nourished patient who is awake, alert, sp4 and in no acute distress. Head/Face: Normocephalic, atraumatic. Eyes: Pupils equal round and reactive to light, extra-ocular motions intact. Lids and lashes normal. Conjunctiva and sclera are not injected. Cornea within normal limits. Periorbital areas with no swelling, redness, or edema. ENT: Nares patent. No nasal discharge, no septal abnormalities noted. Tympanic membranes are normal and external auditory canals are clear. Oropharynx with no redness, swelling, or masses, exudates, or evidence of obstruction, uvula midline. Mucous membranes moist. Neck: Trachea midline, no thyromegaly or masses palpated, and no cervical lymphadenopathy. Supple, full range of motion without nuchal rigidity, or vertebral point tenderness. Chest/axilla: Normal chest wall appearance and motion. Nontender with no deformity. No lesions are appreciated. Cardiovascular: Regular rate and rhythm with a normal S1 and S2. No gallops, murmurs, or rubs. Normal PMI, no JVD. No pulse deficits. Respiratory: Lungs have equal breath sounds bilaterally, clear to auscultation and percussion. No rales, rhonchi or wheezes noted. No increased work of breathing, no retractions or nasal flaring. Abdomen/GI: Soft, with normal bowel sounds. No distension or tympany. No guarding or rebound. No evidence of tenderness throughout. Back: No spinal tenderness. No costovertebral tenderness. Skin: Warm, dry with normal turgor. Normal color with no rashes, no lesions, and no evidence of cellulitis. MS/ Extremity: Pulses equal, no cyanosis. Neurovascular intact. There is a left distal middle finger swelling pain tenderness or discoloration and partial avulsion of the fingernail. Neuro: Awake and alert, GCS 15, oriented to person, place, time, and situation. Cranial nerves II-XII grossly intact. Motor strength 5/5 in all extremities. Sensory grossly intact. Psych: Awake, alert, with orientation to person, place and time. Behavior, mood, and affect are within normal limits Vital Signs: 01:27 BP 130 / 87; Pulse 65; Resp 16 S; Temp 97.7(TE); Pulse Ox 100% on R/A; Weight 86.18 kg lg3 (R); Height 5 ft. 7 in. (R); 02:40 BP 126 / 81; Pulse 69; Resp 16 S; Temp 97.4(TE); Pulse Ox 100% on R/A; lg3 01:27 Body Mass Index 29.76 (86.18 kg, 170.18 cm) lg3 Favio Coma Score: 21:33 Eye Response: spontaneous(4). Motor Response: obeys commands(6). Verbal Response: sp4 oriented(5). Total: 15. Procedures: 21:37 Splinting: Splint applied to dorsal aspect of distal phalanx of left index finger, sp4 dorsal aspect of middle phalanx of left index finger, dorsal aspect of proximal phalanx of left index finger, dorsal aspect of distal phalanx of left middle finger, dorsal aspect of middle phalanx of left middle finger, dorsal aspect of proximal phalanx of left middle finger, dorsum of left hand, dorsal aspect of left wrist, heel of left hand and palmar aspect of left wrist using Orthoglass splint, Left middle and index fingers were salvatore taped together after sterile dressing to the left middle finger. Cast padding applied around left index middle finger also left hand and the wrist. Palmar splint applied to immobilize left middle and index finger hand and the wrist. . applied by myself. Examined by me, post splint application: neurovascular intact, 2+ distal pulses palpable, brisk capillary refill noted, Patient tolerated well, Arm sling was given patient advised to return for dressing change on Friday10/31/2023. Laceration: 21:37 Wound Repair of 0.8cm ( 0.3in ) subcutaneous laceration to dorsal aspect of distal sp4 phalanx of left middle finger - left middle finger partial fingernail avulsion with small laceration radial side of the cuticle. Linear shaped.. Distal neuro/vascular/tendon intact. Anesthesia: Digital block administered with 8 mls of 1% lidocaine. Wound prep: Moderate cleansing, Copious irrigation. Skin closed with 2 5-0 Prolene using interrupted sutures and sterile technique. Dressed with 4x4's, Kerlix, non-adherent dressing. Patient tolerated well. MDM: 01:36 Patient medically screened. sp4 04:00 ED course: EXAM DESCRIPTION: Hand Left 3 View CLINICAL HISTORY: left middle finger pain sp4 TECHNIQUE: Three views of the left hand are submitted. COMPARISON: None available for comparison FINDINGS: Fracture at the base of the distal phalanx of the left third digit involving the distal interphalangeal joint. Soft tissue and nail injury overlying the distal phalanx. IMPRESSION: Fracture at the base of the distal phalanx of the left third digit involving the distal interphalangeal joint. . 21:33 Differential diagnosis: Hand fracture, crush injury, fracture dislocation, fingernail sp4 avulsion. Data reviewed: vital signs, nurses notes. Consideration of Admission/Observation Escalation of care including admission/observation considered. 10/28 01:37 Order name: Hand Left 3 View XRAY sp4 10/28 01:36 Order name: Dressing - Wound; Complete Time: 01:41 sp4 10/28 01:36 Order name: Gloves, Sterile; Complete Time: 01:41 sp4 10/28 01:36 Order name: Setup Suture Tray; Complete Time: 01:41 sp4 10/28 02:40 Order name: Sling; Complete Time: 02:41 sp4 Administered Medications: 02:39 Drug: Lidocaine Infiltration (1 %) 20 ml 20 ml Infiltration once; to bedside Volume: 20 lg3 ml; Route: Infiltration; Disposition Summary: 10/29/23 02:38 Discharge Ordered Problem: new sp4 Symptoms: have improved sp4 Condition: Stable sp4 Diagnosis - Left middle finger distal phalanx laceration, left middle finger distal phalanx sp4 fingernail avulsion, left middle finger crush injury - Left middle finger distal phalanx open fracture sp4 Followup: sp4 - With: Tank Mckeon MD - When: 10 - 14 days - Reason: Recheck today's complaints Discharge Instructions: - Discharge Summary Sheet sp4 - Finger Fracture, Adult, [id number] sp4 Forms: - Patient Portal Instructions sp4 Prescriptions: - Ibuprofen 800 mg Oral Tablet - take 1 tablet ORAL route every 8 hours As needed take with food; 30 tablet; sp4 Refills: 0, Product Selection Permitted - Bactrim DS 800-160 mg Oral Tablet - take 1 tablet ORAL route every 12 hours for 10 days; 20 tablet; Refills: 0, sp4 Product Selection Permitted Signatures: Dispatcher [employer] Chaya Blanchard RN RN lg3 Cornelio Marshall MD MD sp4 Corrections: (The following items were deleted from the chart) 01:32 01:31 Home Meds: Vitamin Oral tab 1 tab once daily; lg3 lg3 01:32 01:31 PSHx: None; lg3 lg3
[2023-10-29 03:17] VITALS: BP 126/81; TEMP 97.4; O2SAT 100
--- NOTE | 2023-10-29 19:00 | RAD REPORT ---
EXAM DESCRIPTION: Hand Left 3 View CLINICAL HISTORY: Left middle finger pain TECHNIQUE: Three views of the left hand are submitted. COMPARISON: None available for comparison FINDINGS: Fracture at the base of the distal phalanx of the left third digit involving the distal in terphalangeal joint. Soft tissue and nail injury overlying the distal phalanx. IMPRESSION: Fracture at the base of the distal phalanx of the left third digit involving the distal interphalangeal joint. Electronically signed by: Ilan Shen MD 10/29/2023 03:01 AM CDT Due to temporary technical issues with the PACS/Fluency reporting system, reports are being signed by the in house radiologists without review as a courtesy to insure prompt reporting. The interpreting radiologist is fully responsible for the content of the report.
== END ==
LOC: ER 01:12
PROC: 0HQGXZZ Repair Left Hand Skin, External Approach (ICD-10-PCS; principal; 2023-10-29)
DX: S62.633B Displaced fracture of distal phalanx of left middle finger, initial encounter for open fracture (principal); S67.193A Crushing injury of left middle finger, initial encounter
CPT/HCPCS: J2001

== ENCOUNTER → 2023-10-31 | Emergency (ER) | payer SELFPAY ==
--- OUTSIDE RECORDS SUMMARY | 2023-10-31 20:56 | XMS REPORT | Continuity of Care Document ---
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 bedtime. [facility] miconazole 100 mg vaginal suppository 16 00:00: 00 Yes [id number] 100mg Insert 1 Suppositor y into vagina at bedtime. [facility] miconazole 100 mg vaginal suppository 0 16 00:00: 00 Yes [id number] 100mg Insert 1 Suppositor y into vagina at bedtime. [facility] miconazole 100 mg vaginal suppository 0 16 00:00: 00 Yes [id number] 100mg Insert 1 Suppositor y into vagina at bedtime. [facility] miconazole 100 mg vaginal suppository 0 16 00:00: 00 Yes [id number] 100mg Insert 1 Suppositor y into vagina at bedtime. [facility] miconazole 100 mg vaginal suppository 0 16 00:00: 00 Yes [id number] 100mg Insert 1 Suppositor y into vagina at bedtime. [facility] miconazole 100 mg vaginal suppository 0 -16 00:00: 00 Yes [id number] 100mg Insert 1 Suppositor y into vagina at bedtime. [facility] miconazole 100 mg vaginal suppository 2021-0 16 00:00: 00 Yes [id number] 100mg Insert 1 Suppositor y into vagina at bedtime. [facility] miconazole 100 mg vaginal suppository 0 16 00:00: 00 Yes [id number] 100mg Insert 1 Suppositor y into vagina at bedtime. [facility] miconazole 100 mg vaginal suppository 0 16 00:00: 00 Yes [id number] 100mg Insert 1 Suppositor y into vagina at bedtime. [facility] miconazole 100 mg vaginal suppository 0 16 00:00: 00 Yes [id number] 100mg Insert 1 Suppositor y into vagina at bedtime. [facility] miconazole 100 mg vaginal suppository 0 16 00:00: 00 Yes [id number] 100mg Insert 1 Suppositor y into vagina at bedtime. [facility] miconazole 100 mg vaginal suppository 0 16 00:00: 00 Yes [id number] 100mg Insert 1 Suppositor y into vagina at bedtime. [facility] miconazole 100 mg vaginal suppository 2021-0 16 00:00: 00 Yes [id number] 100mg Insert 1 Suppositor y into vagina at bedtime. [facility] miconazole 100 mg vaginal suppository 2021-0 16 00:00: 00 Yes [id number] 100mg Insert 1 Suppositor y into vagina at bedtime. [facility] miconazole 100 mg vaginal suppository 2021-0 -16 00:00: 00 Yes [id number] 100mg Insert 1 Suppositor y into vagina at bedtime. [facility] miconazole 100 mg vaginal suppository 2021-0 -16 00:00: 00 Yes [id number] 100mg Insert 1 Suppositor y into vagina at bedtime. [facility] Prenat-Fe Poly-Methfo l-FA-DHA (Vitafol FE+) 90-0.6-0.4- 200 MG capsule 2021-0 - 00:00: 00 Yes Take by mouth. [facility] Prenat-Fe Poly-Methfo l-FA-DHA (Vitafol FE+) 90-0.6-0.4- 200 MG capsule 2021-0 - 00:00: 00 Yes Take by mouth. [facility] Prenat-Fe Poly-Methfo l-FA-DHA (Vitafol FE+) 90-0.6-0.4- 200 MG capsule 2021-0 - 00:00: 00 Yes Take by mouth. [facility] Prenat-Fe Poly-Methfo l-FA-DHA (Vitafol FE+) 90-0.6-0.4- 200 MG capsule 2021-0 - 00:00: 00 Yes Take by mouth. [facility] Prenat-Fe Poly-Methfo l-FA-DHA (Vitafol FE+) 90-0.6-0.4- 200 MG capsule 2021-0 - 00:00: 00 Yes Take by mouth. [facility] Prenat-Fe Poly-Methfo l-FA-DHA (Vitafol FE+) 90-0.6-0.4- 200 MG capsule 2021-0 - 00:00: 00 Yes Take by mouth. [facility] Prenat-Fe Poly-Methfo l-FA-DHA (Vitafol FE+) 90-0.6-0.4- 200 MG capsule 2021-0 - 00:00: 00 Yes Take by mouth. [facility] Prenat-Fe Poly-Methfo l-FA-DHA (Vitafol FE+) 90-0.6-0.4- 200 MG capsule 2021-0 - 00:00: 00 Yes Take by mouth. [facility] Prenat-Fe Poly-Methfo l-FA-DHA (Vitafol FE+) 90-0.6-0.4- 200 MG capsule 2-0 -13 00:00: 00 Yes Take by mouth. [facility] Prenat-Fe Poly-Methfo l-FA-DHA (Vitafol FE+) 90-0.6-0.4- 200 MG capsule 2022-0 -13 00:00: 00 Yes Take by mouth. [facility] Prenat-Fe Poly-Methfo l-FA-DHA (Vitafol FE+) 90-0.6-0.4- 200 MG capsule 2022-0 -13 00:00: 00 Yes Take by mouth. [facility] Prenat-Fe Poly-Methfo l-FA-DHA (Vitafol FE+) 90-0.6-0.4- 200 MG capsule 2-0 - 00:00: 00 Yes Take by mouth. [facility] PNV 102-iron-fo late-dha (VITAFOL FE PLUS) 90 mg iron- 1 mg-200 mg Cap 2021-0 - 00:00: 00 Yes Take 1 TAB-CAP/M2 by mouth daily. [facility] PNV 102-iron-fo late-dha (VITAFOL FE PLUS) 90 mg iron- 1 mg-200 mg Cap 2021-0 - 00:00: 00 Yes Take 1 TAB-CAP/M2 by mouth daily. [facility] PNV 102-iron-fo late-dha (VITAFOL FE PLUS) 90 mg iron- 1 mg-200 mg Cap 2021-0 - 00:00: 00 Yes Take 1 TAB-CAP/M2 by mouth daily. [facility] PNV 102-iron-fo late-dha (VITAFOL FE PLUS) 90 mg iron- 1 mg-200 mg Cap 2-0 - 00:00: 00 Yes Take 1 TAB-CAP/M2 by mouth daily. [facility] PNV 102-iron-fo late-dha (VITAFOL FE PLUS) 90 mg iron- 1 mg-200 mg Cap 2-0 - 00:00: 00 Yes Take 1 TAB-CAP/M2 by mouth daily. [facility] PNV 102-iron-fo late-dha (VITAFOL FE PLUS) 90 mg iron- 1 mg-200 mg Cap 2022-0 1-13 00:00: 00 Yes Take 1 TAB-CAP/M2 by mouth daily. [facility] PNV 102-iron-fo late-dha (VITAFOL FE PLUS) 90 mg iron- 1 mg-200 mg Cap 2022-0 1-13 00:00: 00 Yes Take 1 TAB-CAP/M2 by mouth daily. [facility] PNV 102-iron-fo late-dha (VITAFOL FE PLUS) 90 mg iron- 1 mg-200 mg Cap 2022-0 1-13 00:00: 00 Yes Take 1 TAB-CAP/M2 by mouth daily. [facility] PNV 102-iron-fo late-dha (VITAFOL FE PLUS) 90 mg iron- 1 mg-200 mg Cap 2022-0 1-13 00:00: 00 Yes Take 1 TAB-CAP/M2 by mouth daily. [facility] PNV 102-iron-fo late-dha (VITAFOL FE PLUS) 90 mg iron- 1 mg-200 mg Cap 2022-0 1-13 00:00: 00 Yes Take 1 TAB-CAP/M2 by mouth daily. [facility] PNV 102-iron-fo late-dha (VITAFOL FE PLUS) 90 mg iron- 1 mg-200 mg Cap 2022-0 1-13 00:00: 00 Yes Take 1 TAB-CAP/M2 by mouth daily. [facility] PNV 102-iron-fo late-dha (VITAFOL FE PLUS) 90 mg iron- 1 mg-200 mg Cap 2022-0 1-13 00:00: 00 Yes Take 1 TAB-CAP/M2 by mouth daily. [facility] PNV 102-iron-fo late-dha (VITAFOL FE PLUS) 90 mg iron- 1 mg-200 mg Cap 2022-0 1-13 00:00: 00 Yes Take 1 TAB-CAP/M2 by mouth daily. [facility] PNV 102-iron-fo late-dha (VITAFOL FE PLUS) 90 mg iron- 1 mg-200 mg Cap 2022-0 1-13 00:00: 00 Yes Take 1 TAB-CAP/M2 by mouth daily. [facility] PNV 102-iron-fo late-dha (VITAFOL FE PLUS) 90 mg iron- 1 mg-200 mg Cap 2-0 1-13 00:00: 00 Yes Take 1 TAB-CAP/M2 by mouth daily. [facility] PNV 102-iron-fo late-dha (VITAFOL FE PLUS) 90 mg iron- 1 mg-200 mg Cap 2022-0 1-13 00:00: 00 Yes Take 1 TAB-CAP/M2 by mouth daily. [facility] PNV 102-iron-fo late-dha (VITAFOL FE PLUS) 90 mg iron- 1 mg-200 mg Cap 2-0 1-13 00:00: 00 Yes Take 1 TAB-CAP/M2 by mouth daily. [facility] PNV 102-iron-fo late-dha (VITAFOL FE PLUS) 90 mg iron- 1 mg-200 mg Cap 2-0 1-13 00:00: 00 Yes Take 1 TAB-CAP/M2 by mouth daily. [facility] PNV 102-iron-fo late-dha (VITAFOL FE PLUS) 90 mg iron- 1 mg-200 mg Cap 2-0 -13 00:00: 00 Yes Take 1 TAB-CAP/M2 by mouth daily. [facility] PNV 102-iron-fo late-dha (VITAFOL FE PLUS) 90 mg iron- 1 mg-200 mg Cap 2-0 1-13 00:00: 00 Yes Take 1 TAB-CAP/M2 by mouth daily. [facility] PNV 102-iron-fo late-dha (VITAFOL FE PLUS) 90 mg iron- 1 mg-200 mg Cap 2-0 1-13 00:00: 00 Yes Take 1 TAB-CAP/M2 by mouth daily. [facility] PNV 102-iron-fo late-dha (VITAFOL FE PLUS) 90 mg iron- 1 mg-200 mg Cap 2022-0 1-13 00:00: 00 Yes Take 1 TAB-CAP/M2 by mouth daily. [facility] PNV 102-iron-fo late-dha (VITAFOL FE PLUS) 90 mg iron- 1 mg-200 mg Cap 08-30 00:00: 00 Yes Take 1 TAB-CAP/M2 by mouth daily. [facility] Prenat-Fe Poly-Methfo l-FA-DHA (Vitafol FE+) 90-0.6-0.4- 200 MG capsule 08-30 00:00: 00 Yes Take by mouth. [facility] Prenat-Fe Poly-Methfo l-FA-DHA (Vitafol FE+) 90-0.6-0.4- 200 MG capsule 08-30 00:00: 00 Yes Take by mouth. [facility] Prenat-Fe Poly-Methfo l-FA-DHA (Vitafol FE+) 90-0.6-0.4- 200 MG capsule 08-30 00:00: 00 Yes Take by mouth. [facility] Immunizations Ordered Immunization Name Filled Immunization Name Date Status Comments Source Tdap 2022-02-21 00:00:00 Completed [place] [employer] Tdap 2022-02-21 00:00:00 [place] [employer] Td[facility] 2022-02-21 00:00:00 Completed [facility] Tdap 2022-02-21 00:00:00 [place] [employer] Td[facility] 2022-02-21 00:00:00 Completed [facility] Tdap 2022-02-21 00:00:00 [place] [employer] Tdap 2022-02-21 00:00:00 Completed [facility] Tdap 2022-02-21 00:00:00 Completed [facility] Tdap 2022-02-21 00:00:00 Completed [facility] Influenza Virus Vaccine Quad IM, Preserv and ABX Free 6 MO-64 YRS 2021-08-30 00:00:00 Completed [facility] Influenza Virus Vaccine Quad IM, Preserv and ABX Free 6 MO-64 YRS 2021-08-30 00:00:00 Completed [facility] Influenza Virus Vaccine Quad IM, Preserv and ABX Free 6 MO-64 YRS 2021-08-30 00:00:00 Completed [facility] Influenza Virus Vaccine Quad IM, Preserv and ABX Free 6 MO-64 YRS 2021-08-30 00:00:00 Completed [facility] Influenza Virus Vaccine Quad IM, Preserv and ABX Free 6 MO-64 YRS 2021-08-30 00:00:00 Completed [facility] Influenza Virus Vaccine Quad IM, Preserv and ABX Free 6 MO-64 YRS 2021-08-30 00:00:00 Completed [facility] Influenza Virus Vaccine Quad IM, Preserv and ABX Free 6 MO-64 YRS 2021-08-30 00:00:00 Completed [facility] Influenza Virus Vaccine Quad IM, Preserv and ABX Free 6 MO-64 YRS 2021-08-30 00:00:00 Completed [facility] Influenza Virus Vaccine Quad IM, Preserv and ABX Free 6 MO-64 YRS 2021-08-30 00:00:00 Completed [facility] Influenza Virus Vaccine Quad IM, Preserv and ABX Free 6 MO-64 YRS 2021-08-30 00:00:00 Completed [facility] Influenza Virus Vaccine Quad IM, Preserv and ABX Free 6 MO-64 YRS 2021-08-30 00:00:00 Completed [facility] Influenza Virus Vaccine Quad IM, Preserv and ABX Free 6 MO-64 YRS 2021-08-30 00:00:00 Completed [facility] Influenza Virus Vaccine Quad IM, Preserv and ABX Free 6 MO-64 YRS 2021-08-30 00:00:00 Completed [facility] Influenza Virus Vaccine Quad IM, Preserv and ABX Free 6 MO-64 YRS 2021-08-30 00:00:00 Completed [facility] Influenza Virus Vaccine Quad IM, Preserv and ABX Free 6 MO-64 YRS 2021-08-30 00:00:00 Completed [facility] Influenza Virus Vaccine Quad IM, Preserv and ABX Free 6 MO-64 YRS 2021-08-30 00:00:00 Completed [facility] Influenza Virus Vaccine Quad IM, Preserv and ABX Free 6 MO-64 YRS 2021-08-30 00:00:00 Completed [facility] Influenza Virus Vaccine Quad IM, Preserv and ABX Free 6 MO-64 YRS 2021-08-30 00:00:00 Completed [facility] Gardasil 9 Intramuscular Suspension 2018-01-05 00:00:00 Completed [facility] HPV9 2018-01-05 00:00:00 Completed [facility] HPV9 2018-01-05 00:00:00 Completed [facility] HPV9 2018-01-05 00:00:00 Completed [facility] HPV9 2018-01-05 00:00:00 Completed [facility] HPV9 2018-01-05 00:00:00 Completed [facility] HPV9 2018-01-05 00:00:00 Completed [facility] HPV9 2018-01-05 00:00:00 Completed [facility] HPV9 2018-01-05 00:00:00 Completed [facility] HPV9 2018-01-05 00:00:00 Completed [facility] Gardasil 9 Intramuscular Suspension 2017-05-23 00:00:00 Completed [facility] HPV9 2017-05-23 00:00:00 Completed [facility] HPV9 2017-05-23 00:00:00 Completed [facility] HPV9 2017-05-23 00:00:00 Completed [facility] HPV9 2017-05-23 00:00:00 Completed [facility] HPV9 2017-05-23 00:00:00 Completed [facility] HPV9 2017-05-23 00:00:00 Completed [facility] HPV9 2017-05-23 00:00:00 Completed [facility] HPV9 2017-05-23 00:00:00 Completed [facility] HPV9 2017-05-23 00:00:00 Completed [facility] Gardasil 9 Intramuscular Suspension 2017-03-12 00:00:00 Completed [facility] HPV9 2017-03-12 00:00:00 Completed [facility] HPV9 2017-03-12 00:00:00 Completed [facility] HPV9 2017-03-12 00:00:00 Completed [facility] HPV9 2017-03-12 00:00:00 Completed [facility] HPV9 2017-03-12 00:00:00 Completed [facility] HPV9 2017-03-12 00:00:00 Completed [facility] HPV9 2017-03-12 00:00:00 Completed [facility] HPV9 2017-03-12 00:00:00 Completed [facility] HPV9 2017-03-12 00:00:00 Completed [facility] Meningococcal, MCV4, unspecified conjugate formulation(groups A, C, Y and W-135) 2014-03-22 00:00:00 Completed [facility] Varivax 1350 PFU/0.5ML Subcutaneous Injectable 2012-09-29 00:00:00 Completed [facility] Boostrix 5-2.5-18.5 Intramuscular Suspension 2012-08-04 00:00:00 Completed [facility] TDAP 2012-08-04 00:00:00 Completed [facility] TDAP 2012-08-04 00:00:00 Completed [facility] TDAP 2012-08-04 00:00:00 Completed [facility] TDAP 2012-08-04 00:00:00 Completed [facility] TDAP 2012-08-04 00:00:00 Completed [facility] TDAP 2012-08-04 00:00:00 Completed [facility] TDAP 2012-08-04 00:00:00 Completed [facility] TDAP 2012-08-04 00:00:00 Completed [facility] TDAP 2012-08-04 00:00:00 Completed [facility] TDAP 2012-08-04 00:00:00 Completed [facility] hepatitis A vaccine, pediatric/adolescen t dosage, 2 [...] Free 6 MO-64 YRS (FLUCELVAX) Unknown Completed [facility] TDAP Unknown Completed [facility] HPV9 Unknown Completed [facility] HPV9 Unknown Completed [facility] HPV9 Unknown Completed [facility] Influenza Virus Vaccine Quad IM, Preserv and ABX Free 6 MO-64 YRS (FLUCELVAX) Unknown Completed [facility] TDAP Unknown Completed [facility] HPV9 Unknown Completed [facility] HPV9 Unknown Completed [facility] HPV9 Unknown Completed [facility] TDAP Unknown Completed [facility] HPV9 Unknown Completed [facility] HPV9 Unknown Completed [facility] HPV9 Unknown Completed [facility] TDAP Unknown Completed [facility] HPV9 Unknown Completed [facility] HPV9 Unknown Completed [facility] HPV9 Unknown Completed [facility] TDAP Unknown Completed [facility] HPV9 Unknown Completed [facility] HPV9 Unknown Completed [facility] HPV9 Unknown Completed [facility] Influenza Virus Vaccine Quad IM, Preserv and ABX Free 6 MO-64 YRS (FLUCELVAX) Unknown Completed [facility] TDAP Unknown Completed [facility] HPV9 Unknown Completed [facility] HPV9 Unknown Completed [facility] HPV9 Unknown Completed [facility] Influenza Virus Vaccine Quad IM, Preserv and ABX Free 6 MO-64 YRS (FLUCELVAX) Unknown Completed [facility] TDAP Unknown Completed [facility] HPV9 Unknown Completed [facility] HPV9 Unknown Completed [facility] HPV9 Unknown Completed [facility] Influenza Virus Vaccine Quad IM, Preserv and ABX Free 6 MO-64 YRS (FLUCELVAX) Unknown Completed [facility] TDAP Unknown Completed [facility] HPV9 Unknown Completed [facility] HPV9 Unknown Completed [facility] HPV9 Unknown Completed [facility] Vital Signs Vital Name Observation Time Observation Value Comments S ource Systolic blood pressure 2023-10-29 03:39:00 136 mm[Hg] [facility] Diastolic blood pressure 2023-10-29 03:39:00 86 mm[Hg] [facility] Heart rate 2023-10-29 03:39:00 89 /min [facility] Body temperature 2023-10-29 03:39:00 37.39 Patsy [facility] Respiratory rate 2023-10-29 03:39:00 14 /min [facility] Body height 2023-10-29 03:39:00 170.2 cm [facility] Body weight 2023-10-29 03:39:00 86.183 kg [facility] BMI 2023-10-29 03:39:00 29.76 kg/m2 [facility] Oxygen saturation in Arterial blood by Pulse oximetry 2023-10-29 03:39:00 100 /min [facility] Systolic blood pressure 2023-05-20 15:39:00 117 mm[Hg] [facility] Diastolic blood pressure 2023-05-20 15:39:00 80 mm[Hg] [facility] Heart rate 2023-05-20 15:39:00 100 /min [facility] Body temperature 2023-05-20 15:39:00 36.67 Pats[facility] Respiratory rate 2023-05-20 15:39:00 18 /min [facility] Body height 2023-05-20 15:39:00 168.9 cm [facility] Body weight 2023-05-20 15:39:00 77.293 kg [facility] BMI 2023-05-20 15:39:00 27.09 kg/m2 [facility] Oxygen saturation in Arterial blood by Pulse oximetry 2023-05-20 15:39:00 97 /min [facility] Systolic blood pressure 2022-04-19 18:36:00 144 mm[Hg] [facility] Diastolic blood pressure 2022-04-19 18:36:00 78 mm[Hg] [facility] Heart rate 2022-04-19 18:36:00 90 /min [facility] Body temperature 2022-04-19 18:36:00 36.11 P[facility] Body height 2022-04-19 18:36:00 170.2 cm [facility] Body weight 2022-04-19 18:36:00 75.807 kg [facility] BMI 2022-04-19 18:36:00 26.18 kg/m2 [facility] Systolic blood pressure 2022-03-26 20:41:00 136 mm[Hg] [facility] Diastolic blood pressure 2022-03-26 20:41:00 88 mm[Hg] [facility] Heart rate 2022-03-26 20:41:00 76 /min [facility] Body temperature 2022-03-26 20:41:00 36.61 [facility] Body weight 2022-03-26 20:41:00 84.823 kg [facility] BMI 2022-03-26 20:41:00 29.29 kg/m2 [facility] Systolic blood pressure 2022-03-20 18:36:00 135 mm[Hg] [facility] Diastolic blood pressure 2022-03-20 18:36:00 86 mm[Hg] [facility] Heart rate 2022-03-20 18:36:00 75 /min [facility] Body temperature 2022-03-20 18:36:00 36.83 [facility] Body weight 2022-03-20 18:36:00 85.276 kg [facility] BMI 2022-03-20 18:36:00 29.44 kg/m2 [facility] Systolic blood pressure 2022-03-05 18:47:00 [...] [facility] Heart rate 2022-01-17 20:31:00 88 /min [facility] Body temperature 2022-01-17 20:31:00 36.61 [facility] Body weight 2022-01-17 20:31:00 79.833 kg [facility] BMI 2022-01-17 20:31:00 29.29 kg/m2 [facility] Heart rate 2022-01-08 14:15:00 78 /min [facility] Oxygen saturation in Arterial blood by Pulse oximetry 2022-01-08 14:15:00 100 /min [facility] Systolic blood pressure 2022-01-08 12:00:00 106 mm[Hg] [facility] Diastolic blood pressure 2022-01-08 12:00:00 51 mm[Hg] [facility] Body temperature 2022-01-08 11:59:00 36.83 [facility] Respiratory rate 2022-01-08 11:59:00 16 /min [facility] Body height 2022-01-07 09:28:00 170.2 cm [facility] Body weight 2022-01-07 09:28:00 77.565 kg [facility] BMI 2022-01-07 09:28:00 26.78 kg/m2 [facility] Heart rate 2021-12-25 15:30:00 83 /min [facility] Oxygen saturation in Arterial blood by Pulse oximetry 2021-12-25 15:30:00 100 /min [facility] Systolic blood pressure 2021-12-25 15:00:00 97 mm[Hg] [facility] Diastolic blood pressure 2021-12-25 15:00:00 50 mm[Hg] [facility] Body temperature 2021-12-25 15:00:00 36.33 Pats[facility] Respiratory rate 2021-12-25 15:00:00 18 /min [facility] Body height 2021-12-24 13:04:00 167.6 cm [facility] Body weight 2021-12-24 13:04:00 78.472 kg [facility] BMI 2021-12-24 13:04:00 27.92 kg/m2 [facility] Systolic blood pressure 2021-12-13 20:31:00 122 mm[Hg] [facility] Diastolic blood pressure 2021-12-13 20:31:00 76 mm[Hg] [facility] Heart rate 2021-12-13 20:31:00 82 /min [facility] Body temperature 2021-12-13 20:31:00 37.56 Pats[facility] Respiratory rate 2021-12-13 20:31:00 18 /min [facility] Body height 2021-12-13 20:31:00 167.6 cm [facility] Body weight 2021-12-13 20:31:00 76.93 kg [facility] BMI 2021-12-13 20:31:00 27.37 kg/m2 [facility] Systolic blood pressure 2021-11-19 16:05:00 116 mm[Hg] [facility] Diastolic blood pressure 2021-11-19 16:05:00 55 mm[Hg] [facility] Heart rate 2021-11-19 16:05:00 62 /min [facility] Body temperature 2021-11-19 16:05:00 36.94 Pats[facility] Respiratory rate 2021-11-19 16:05:00 18 /min [facility] Body height 2021-11-19 16:05:00 167.6 cm [facility] Body weight 2021-11-19 16:05:00 76.204 kg [facility] BMI 2021-11-19 16:05:00 27.12 kg/m2 [facility] Systolic blood pressure 2021-11-01 02:32:00 112 mm[Hg] [facility] Diastolic blood pressure 2021-11-01 02:32:00 63 mm[Hg] [facility] Heart rate 2021-11-01 02:32:00 65 /min [facility] Respiratory rate 2021-11-01 02:32:00 16 /min [facility] Oxygen saturation in Arterial blood by Pulse oximetry 2021-11-01 02:32:00 99 /min [facility] Body temperature 2021-11-01 00:01:00 37.33 Pats[facility] Body height 2021-11-01 00:01:00 167.6 cm [facility] Body weight 2021-11-01 00:01:00 74.844 kg [facility] BMI 2021-11-01 00:01:00 26.63 kg/m2 [facility] Systolic blood pressure 2021-10-23 16:53:00 114 mm[Hg] [facility] Diastolic blood pressure 2021-10-23 16:53:00 76 mm[Hg] [facility] Heart rate 2021-10-23 16:53:00 73 /min [facility] Body temperature 2021-10-23 16:53:00 36.83 Patsy [facility] Respiratory rate 2021-10-23 16:53:00 18 /min [facility] Body height 2021-10-23 16:53:00 167.6 cm [facility] Body weight 2021-10-23 16:53:00 74.39 kg [facility] BMI 2021-10-23 16:53:00 26.47 kg/m2 [facility] Systolic blood pressure 2021-10-11 19:24:00 127 mm[Hg] [facility] Diastolic blood pressure 2021-10-11 19:24:00 77 mm[Hg] [facility] Heart rate 2021-10-11 19:24:00 98 /min [facility] Body temperature 2021-10-11 19:24:00 36.67 Patsy [facility] Respiratory rate 2021-10-11 19:24:00 18 /min [facility] Body height 2021-10-11 19:24:00 167.6 cm [facility] Body weight 2021-10-11 19:24:00 74.844 kg [facility] BMI 2021-10-11 19:24:00 26.63 kg/m2 [facility] Systolic blood pressure 2019-11-11 11:47:00 114 mm[Hg] [...] VW LEFT 2023-10-29 04:01:38 Yoly Hadley i [facility] POCT TEST 2023-10-29 03:54:00 Delaney Hadley [facility] CONSENT/REFUSAL FOR DIAGNOSIS AND TREATMENT 2023-10-29 03:34:35 Doctor Unassigned, [place] [facility] POCT SARS-COV-2 ANTIGEN (BINAX NOW) 2023-05-20 15:52:00 Lucia Pacheco [facility] POCT MOLECULAR STREP 2023-05-20 15:45:00 Unknown, Yaritza kim [facility] CONSENT/REFUSAL FOR DIAGNOSIS AND TREATMENT 2023-05-20 15:26:44 Doctor Unassigned, [place] [facility] POCT URINALYSIS DIPSTICK 2022-02-01 20:58:00 [facility] ULTRASOUND 2022-01-08 21:11:00 Calvin Arnold [facility] BASIC METABOLIC PANEL (NA, K, CL, CO2, GLUCOSE, BUN, CREATININE, CA) 2022-01-08 09:11:00 Christiano Watters [facility] CBC WITH DIFF 2022-01-08 09:11:00 Christiano Watters [facility] US RETROPERITONEAL COMPLETE 2022-01-07 18:59:14 Christiano Watters [facility] BLOOD CULTURE SCREEN 2022-01-07 10:40:00 Adum, Ruthie Gross [facility] BLOOD CULTURE SCREEN 2022-01-07 10:30:00 Adum, Ruthie Gross [facility] COMP. METABOLIC PANEL (89732) 2022-01-07 10:28:00 Adum, Ruthie Gross [facility] CBC WITH DIFF 2022-01-07 10:28:00 Adum, Ruthie Gross [facility] RAPID INFLUENZA A/B 2022-01-07 10:15:00 Adum, Ruthie Gross [facility] COVID-19 (ID NOW RAPID TESTING) 2022-01-07 10:15:00 Adum, Ruthie Gross [facility] LAB ONLY COVID INTERPRETATION 2022-01-07 10:15:00 Adum, Ruthie Gross [facility] URINALYSIS 2022-01-07 10:13:00 Adum, Ruthie L [facility] URINE CULTURE 2022-01-07 10:13:00 Ruthie Pat [facility] ASSIGNMENT OF BENEFITS 2022-01-07 09:13:42 Docto r Unassigned, [place] [facility] CONSENT/REFUSAL FOR DIAGNOSIS AND TREATMENT 2022-01-07 09:11:13 Doctor Unassigned, [place] [facility] COVID-19 (ID NOW RAPID TESTING) 2021-12-24 16:17:00 Singer [facility] XR CHEST 1 VW 2021-12-24 14:19:18 Singer [facility] MAGNESIUM 2021-12-24 14:04:00 [facility] TROPONIN I 2021-12-24 14:04:00 [facility] COMP. METABOLIC PANEL (57973) 2021-12-24 14:04:00 Singer [facility] CBC WITH DIFF 2021-12-24 14:04:00 Singer [facility] D-DIMER 2021-12-24 14:04:00 [facility] URINALYSIS 2021-12-24 14:04:00 Singer [facility] CONSENT/REFUSAL FOR DIAGNOSIS AND TREATMENT 2021-12-24 12:55:23 Doctor Unassigned, [place] [facility] POCT URINALYSIS W/O SPECIFIC GRAVITY 2021-12-13 20:33:00 Eduardo Calvin [facility] SECOND AND THIRD TRIMESTER ULTRASOUND 2021-12-10 13:30:00 Eduardo [facility] POCT URINALYSIS W/O SPECIFIC GRAVITY 2021-11-19 00:00:00 Christiano Watters [facility] URINALYSIS 2021-11-01 00:57:00 [facility] NOTICE OF PRIVACY PRACTICES 2021-10-31 23:51:47 Doctor Unassigned, [place] [facility] CONSENT/REFUSAL FOR DIAGNOSIS AND TREATMENT 2021-10-31 23:50:59 Doctor Unassigned, [place] [facility] >14 WEEKS US LIMITED 2021-10-23 18:53:48 Calvin Arnold [facility] POCT URINALYSIS W/O SPECIFIC GRAVITY 2021-10-23 00:00:00 Calvin Arnold [facility] [QLH] HCG, TOTAL, QN 2019-11-18 00:00:00 [facility] [QL] HCG, TOTAL, QN 2019-11-11 00:00:00 [facility] [QL] CBC (INCLUDES DIFF/PLT) 2019-11-11 00:00:00 [facility] [Q] ABO GROUP AND RH TYPE (REFL) 2019-11-11 00:00:00 [facility] [QL] RPR 2019-10-07 00:00:00 [facility] [QH] HIV AB, HIV 1/2, EIA, WITH REFLEXES 2019-10-07 00:00:00 [facility] [Q] HEPATITIS B SURFACE ANTIGEN W/REFL CONFIRM 2019-10-07 00:00:00 [facility] [QLH] HEPATITIS C ANTIBODY 2019-10-07 00:00:00 [facility] . [facility] - GC/Chlamydia 2019-10-07 00:00:00 [facility] [Q] HIV AB, HIV 1/2, EIA, WITH REFLEXES 2019-10-07 00:00:00 [facility] Encounters Start Date/Time End Date/Time Encounter Type Admission Type Attending Clinicians Care Facility Care Department Encounter ID Source 2022-01-08 11:55:21 Outpatient P [facility] GARCIA [id number] [facility] 2023-10-28 22:45:00 2023-10-29 00:30:00 Emergency X DELANEY HADLEY [facility] ERT [id number] [facility] 2023-10-28 22:45:00 2023-10-29 00:30:00 Emergency Batooldarleenlizette Chilomaira S [facility] 1.2.840.114 350.1.13.10 4.2.7.2.686 [id number] [facility] 2023-05-20 10:20:00 2023-05-20 10:59:28 Outpatient R LUCIA PACHECO [facility] [id number] [facility] 2023-05-20 10:20:00 2023-05-20 10:59:28 Urgent Care Lucia Pacheco Unknown, Attending [facility] ALVIN MARIE[facility] 1.284.114 350.1.13.10 4.2.7.2.686 [id number] [facility] 2023-05-20 00:00:00 2023-05-20 00:00:00 Orders Only Doctor Unassigned, [place] [facility] 1..114 350.1.13.10 4.2.7.2.686 [id number] [facility] 2022-05-17 14:45:00 2022-05-17 14:45:00 Outpatient NIRU VERDUZCO [facility] [id number] [facility] 2022-04-19 13:30:00 2022-04-19 14:08:32 Visit Niru Verduzco [facility] 1.840.114 350.1.13.58 9.2.7.2.686 [id number] [facility] 2022-04-05 14:00:00 2022-04-05 14:00:00 Outpatient CARLA, COMFORT [facility] [id number] [facility] 2022-04-04 23:40:00 2022-04-04 23:40:00 Outpatient KATE, MAGI [facility] [id number] [facility] 2022-04-03 21:29:00 2022-04-03 21:29:00 Emergency E TIMOTHY MARCANO [facility] [id number] [facility] 2022-03-29 15:15:00 2022-03-29 15:15:00 Outpatient VARUNISABELA, COMFORT [facility] [id number] [facility] 2022-03-26 15:00:00 2022-03-26 16:10:40 Routine Niru Verduzco [facility] 1..840.114 350.1.13.58 9.2.7.2.686 [id number] [facility] 2022-03-26 15:30:00 2022-03-26 15:37:09 Outpatient [facility] [id number] [facility] 2022-03-21 16:28:00 2022-03-21 18:52:00 Emergency E TIMOTHY MARCANO [facility] [id number] [facility] 2022-03-21 00:00:00 2022-03-21 00:00:00 Telephone Dolan, Equilla Dolan, Equilla [facility] [address] 1 1.2840.114 350.1.13.58 9.2.7.2.686 [id number] [facility] 2022-03-20 14:00:00 2022-03-20 14:21:14 Routine Verduzco, Niru [facility] 1.840.114 350.1.13.58 9.2.7.2.686 [id number] [facility] 2022-03-08 10:39:00 2022-03-10 10:15:00 Inpatient E MAGI LOVE [facility] [id number] [facility] 2022-03-07 00:00:00 2022-03-07 00:00:00 Telephone Shanon Anton Angela [facility] [address] [facility] [address] 1 1.840.114 350.1.13.58 9.2.7.2.686 [id number] [facility] 2022-03-07 00:00:00 2022-03-07 00:00:00 Telephone Shanon Anton Shanon UTP [facility] [address] 1 1.2840.114 350.1.13.58 9.2.7.2.686 [id number] [facility] 2022-03-06 00:00:00 2022-03-06 00:00:00 Telephone HuyukluoglShanon johnson Angela UTP [facility] [address] 1 1.2.840.114 350.1.13.58 9.2.7.2.686 [id number] [facility] 2022-03-05 14:00:00 2022-03-05 14:19:18 Routine Verduzco, Niru [facility] 1.2.840.114 350.1.13.58 9.2.7.2.686 [id number] [facility] 2022-02-21 15:00:00 2022-02-21 15:30:00 Routine Verduzco, Niru [facility] 1.2.840.114 350.1.13.58 9.2.7.2.686 [id number] [facility] 2022-02-20 00:00:00 2022-02-20 00:00:00 Telephone Shanon Anton Angela [facility] [address] 1 1.2840.114 350.1.13.58 9.2.7.2.686 [id number] [facility] 2022-02-19 19:29:00 2022-02-19 21:10:00 [id number] 2022-02-15 08:30:00 2022-02-15 09:11:32 Routine VerduzcoRandiNiru [facility] 1.2.840.114 350.1.13.58 9.2.7.2.686 [id number] [facility] 2022-02-12 00:00:00 2022-02-12 00:00:00 Telephone Shanon Anton Angela [facility] [address] 1 1.2.840.114 350.1.13.58 9.2.7.2.686 [id number] [facility] 2022-02-07 15:15:00 2022-02-07 15:15:00 Outpatient VERDUZCO, NIRU [facility] [id number] [facility] 2022-02-01 15:45:00 2022-02-01 16:26:19 Routine VerduzcoNiru stokes [facility] 1.2840.114 350.1.13.58 9.2.7.2.686 [id number] [facility] 2022-01-28 12:18:00 2022-01-28 14:07:00 Emergency E KATE, MAGI [id number] [facility] 2022-01-28 00:00:00 2022-01-28 00:00:00 Telephone Shanon Anton Angela [facility] 1 1..840.114 350.1.13.58 9.2.7.2.686 [id number] [facility] 2022-01-21 09:15:00 2022-01-21 09:15:[address] [facility] [id number] [facility] 2022-01-17 15:15:00 2022-01-17 16:23:09 Routine VerduzcoNiru stokes [facility] 1.2840.114 350.1.13.58 9.2.7.2.686 [id number] [facility] 2022-01-11 15:15:00 2022-01-11 15:15:[address] [facility] [id number] [facility] 2022-01-10 11:15:00 2022-01-10 11:15:00 Outpatient R CHRISTIANO WATTERS [facility] [id number] [facility] 2022-01-08 15:30:00 2022-01-08 16:17:37 Ob Nurse Visit 1, Sabino De La Rosa [facility] MEDICAL OFFICE BUILDING 1..840.114 350.1.13.10 4.2.7.2.686 [id number] [facility] 2022-01-08 15:30:00 2022-01-08 15:30:00 Outpatient P RAMIREZ VANESSA [facility] [id number] [facility] 2022-01-07 04:21:00 2022-01-08 11:55:00 Outpatient P RUTHIE PAT [facility] [id number] [facility] 2022-01-07 04:21:00 2022-01-08 11:55:00 Hospital Encounter Ruthie Pat [facility] 1.2840.114 350.1.13.10 4.2.7.2.686 [id number] [facility] 2022-01-07 00:00:00 2022-01-07 00:00:00 Orders Only Doctor Unassigned, [place] [facility] 1.2840.114 350.1.13.10 4.2.7.2.686 [id number] [facility] 2021-12-31 00:00:00 2021-12-31 00:00:00 Telephone Christiano Watters [facility] 1.2840.114 350.1.13.10 4.2.7.2.686 [id number] 134 [id number] [facility] 2021-12-31 00:00:00 2021-12-31 00:00:00 Telephone Christiano Watters [facility] 1.2840.114 350.1.13.10 4.2.7.2.686 [id number] [facility] 2021-12-24 08:06:00 2021-12-25 11:30:00 Outpatient X LUIS LEMUS [facility] [id number] [facility] 2021-12-24 08:06:00 2021-12-25 11:30:00 Emergency Inocente Camilo Vien Cam Fish, Megan [facility] 1..114 350.1.13.10 4.2.7.2.686 [id number] [facility] 2021-12-24 00:00:00 2021-12-24 00:00:00 Telephone Watters Christiano Anton [facility] 1.84.114 350.1.13.10 4.2.7.2.686 [id number] [facility] 2021-12-17 15:30:00 2021-12-17 15:30:00 Outpatient R CHRISTIANO WATTERS [facility] [id number] [facility] 2021-12-13 16:30:00 2021-12-13 16:30:00 Routine Visit Calvin Arnold [facility] 1..114 350.1.13.10 4.2.7.2.686 [id number] [facility] 2021-12-13 16:30:00 2021-12-13 16:04:40 Outpatient R CALVIN ARNOLD [facility] [id number] [facility] 2021-12-10 08:00:00 2021-12-10 08:55:25 Ob Nurse Visit 1, [facility] Room Davida Hancock [facility] CONTRACT ADMINISTRATIVE ASSISTANT [facility] 1..114 350.1.13.10 4.2.7.2.686 [id number] [facility] 2021-12-10 08:00:00 2021-12-10 08:00:00 Outpatient P DAVIDA HANCOCK [facility] [id number] [facility] 2021-12-06 00:00:00 2021-12-06 00:00:00 Telephone Lubna Smith 1.84.114 350.1.13.10 4.2.7.2.686 [id number] [facility] 2021-11-19 13:45:00 2021-11-19 14:00:00 Ob Nurse Visit 2, Adc Sourav Christiano Watters [facility] BUILDING 1.2.840.114 350.1.13.10 4.2.7.2.686 [id number] [facility] 2021-11-19 10:45:00 2021-11-19 11:32:52 Outpatient R JANENE [facility] [id number] [facility] 2021-11-19 10:45:00 2021-11-19 11:32:52 Routine Visit Calvin Arnold[facility] 1..840.114 350.1.13.10 4.2.7.2.686 [id number] [facility] 2021-11-15 14:30:00 2021-11-15 14:30:[address]SA OM[address]LEY [facility] [id number] [facility] 2021-10-31 19:45:00 2021-10-31 21:50:00 Emergency CAROL LANDIN [facility] ERT [id number] [facility] 2021-10-31 19:45:00 2021-10-31 21:50:00 Emergency Carol Carroll [facility] 1.840.114 350.1.13.10 4.2.7.2.686 [id number] [facility] 2021-10-31 00:00:00 2021-10-31 00:00:00 Orders Only Doctor Unassigned, [place] [facility] 1.840.114 350.1.13.10 4.2.7.2.686 [id number] [facility] 2021-10-25 00:00:00 2021-10-25 00:00:[address]EN HOLLOWAY [facility] [id number] [facility] 2021-10-23 10:30:00 2021-10-23 11:48:[address]IN [address]ENA [facility] [id number] [facility] 2021-10-23 10:30:00 2021-10-23 11:48:44 Routine Visit Calvin Arnold Vivian L [facility] 1.2.840.114 350.1.13.10 4.2.7.2.686 [id number] [facility] 2021-10-23 00:00:00 2021-10-23 00:00:00 Telephone Janene [facility]o [facility] 1.2.840.114 350.1.13.10 4.2.7.2.686 [id number] [facility] 2021-10-18 00:00:00 2021-10-18 00:00:00 Telephone Christiano Watters [facility] 1.2.840.114 350.1.13.10 4.2.7.2.686 [id number] [facility] 2021-10-11 13:00:00 2021-10-11 14:00:00 Office Visit Clinic, [facility] Neurology Continuity Shaheen Patino [facility] 1.2840.114 350.1.13.10 4.2.7.2.686 [id number] [facility] 2021-10-11 13:00:00 2021-10-11 13:00:00 Outpatient SHA[address]EN HO[address]AY [facility] [id number] [facility] 2021-10-09 00:00:00 2021-10-09 00:00:00 Telephone WattersChristiano [facility] 1..840.114 350.1.13.10 4.2.7.2.686 [id number] [facility] 2021-10-02 00:00:00 2021-10-02 00:00:00 Telephone Christiano Watters [facility] 1.2.840.114 350.1.13.10 4.2.7.2.686 [id number] [facility] 2021-10-01 09:45:00 2021-10-01 09:45:[address] [facility] [id number] [facility] 2021-10-01 09:45:00 2021-10-01 09:45:[address] [facility] [id number] [facility] 2021-09-30 00:00:00 2021-09-30 00:00:00 Case Management Christiano Watters [facility] 1.2.840.114 350.1.13.10 4.2.7.2.686 [id number] [facility] 2021-09-28 09:30:00 2021-09-28 09:32:41 Ob Nurse Visit 2, Adc Lab Christiano Watters [facility] 1..840.114 350.1.13.10 4.2.7.2.686 [id number] [facility] 2021-09-28 09:30:00 2021-09-28 09:30:00 Outpatient R CHRISTIANO WAT[facility] [id number] [facility] 2021-09-27 13:00:00 2021-09-27 13:20:53 Outpatient R CHRISTIANO [facility] [id number] [facility] 2021-09-27 13:00:00 2021-09-27 13:20:53 Routine Visit Christiano Watters [facility] 1.2.840.114 350.1.13.10 4.2.7.2.686 [id number] [facility] 2021-09-27 00:00:00 2021-09-27 00:00:00 Patient Secure Msg Christiano Watters [facility] 1.2.840.114 350.1.13.10 4.2.7.2.686 [id number] 134 [id number] [facility] 2021-09-27 00:00:00 2021-09-27 00:00:00 Orders Only Doctor Unassigned, [place] [facility] 1.840.114 350.1.13.10 4.2.7.2.686 [id number] [facility] 2021-09-21 00:00:00 2021-09-21 00:00:00 Telephone Christiano Watters [facility] 1.2840.114 350.1.13.10 4.2.7.2.686 [id number] [facility] 2021-09-14 00:00:00 2021-09-14 00:00:00 Patient Secure Msg Doctor Unassigned, [place] [facility] 1.2840.114 350.1.13.10 4.2.7.2.686 [id number] 134 [id number] [facility] 2021-09-04 00:00:00 2021-09-04 00:00:00 Patient Secure Msg Doctor Unassigned, [place] [facility] 1.2840.114 350.1.13.10 4.2.7.2.686 [id number] [facility] 2021-09-02 00:00:00 2021-09-02 00:00:00 Case Management Calvin Arnold [facility] 1.284.114 350.1.13.10 4.2.7.2.686 [id number] [facility] 2021-08-30 14:00:00 2021-08-30 15:35:18 Outpatient R CHRISTIANO W[facility] [id number] [facility] 2021-08-30 14:00:00 2021-08-30 15:35:18 Initial Visit Christiano Watters [facility] BUILDING 1.2.840.114 350.1.13.10 4.2.7.2.686 [id number] [facility] 2021-08-30 00:00:00 2021-08-30 00:00:00 Orders Only Doctor Unassigned, [place] [facility] 1.2840.114 350.1.13.10 4.2.7.2.686 [id number] [facility] 2021-08-27 15:30:00 2021-08-27 15:44:25 Ob Nurse Visit 2, Adc Lab Christiano Watters [facility]ILDING 1.2.840.114 350.1.13.10 4.2.7.2.686 [id number] [facility] 2021-08-27 15:30:00 2021-08-27 15:30:00 Outpatient R CHRISTIANO WAT[facility] [id number] [facility] 2021-08-24 15:30:00 2021-08-24 15:30:00 [facility] [id number] [facility] 2021-08-24 15:30:00 2021-08-24 15:30:00 Ob Nurse Visit 2, Adc Lab Christiano Watters [facility]ILD[facility] 1.2.840.114 350.1.13.10 4.2.7.2.686 [id number] [facility] 2021-08-24 00:00:00 2021-08-24 00:00:00 Patient Secure Msg Doctor Unassigned, [place] [facility] 1.2.840.114 350.1.13.10 4.2.7.2.686 [id number] 134 [id number] [facility] 2021-08-22 15:30:00 2021-08-22 15:43:48 Ob Nurse Visit 2, Adc Lab Christiano Watters [facility]ILDING 1.2.840.114 350.1.13.10 4.2.7.2.686 [id number] [facility] 2021-08-22 15:30:00 2021-08-22 15:30:00 Outpatient R JANENE [facility] [id number] [facility] 2021-08-22 00:00:00 2021-08-22 00:00:00 Telephone Christiano Watters [facility] 1.2.840.114 350.1.13.10 4.2.7.2.686 [id number] [facility] 2021-01-08 09:30:00 2021-01-08 09:30:00 Outpatient Lucrecia [facility] [id number] [facility] 2020-12-13 10:30:00 2020-12-13 10:30:00 Outpatient Lucrecia [facility] [id number] [facility] 2020-12-11 00:00:00 2020-12-11 00:00:00 Telephone Eduardo [facility] 1.2.840.114 350.1.13.10 4.2.7.2.686 [id number] [facility] 2020-12-08 16:26:14 2020-12-08 16:46:14 Laboratory Only Lab, Kiera Fam Thomas [facility] Office Building One 1..114 350.1.13.10 4.2.7.2.686 [id number] [facility] 2020-12-08 09:44:41 2020-12-08 09:59:41 Ob Nurse Visit 2, Adc Lab Christiano Watters [facility] Building 1..114 350.1.13.10 4.2.7.2.686 [id number] [facility] 2020-12-08 09:30:00 2020-12-08 09:30:[address] [facility] [id number] [facility] 2020-12-07 10:44:10 2020-12-07 11:23:41 Office Visit Calvin Arnold [facility] Building 1.114 350.1.13.10 4.2.7.2.686 [id number] [facility] 2020-12-07 10:30:00 2020-12-07 10:30:00 Outpatient R CALVIN [facility] [id number] [facility] 2020-12-07 00:00:00 2020-12-07 00:00:00 Orders Only Doctor Unassigned, [place] [facility] 1. 350.1.13.10 4.2.7.2.686 [id number] [facility] 2020-04-09 00:00:00 2020-04-09 00:00:00 Letter (Out) Philomena Gerber [facility] 1.114 350.1.13.10 4.2.7.2.686 [id number] [facility] 2020-04-09 00:00:00 2020-04-09 00:00:00 Patient Secure Msg Doctor Unassigned, [place] [facility] 1.2.840.114 350.1.13.10 4.2.7.2.686 [id number] [facility] 2020-04-07 16:03:22 2020-04-07 16:23:22 Laboratory Only Lab, Adc Fam Pob I Krista [facility] Office Building One 1.114 350.1.13.10 4.2.7.2.686 [id number] [facility] 2020-04-07 16:20:00 2020-04-07 16:20:00 Outpatient R [facility] [id number] [facility] 2020-03-05 00:00:00 2020-03-05 00:00:00 Patient Secure Msg Doctor Unassigned, [place] [facility] CONTRACT ADMINISTRATIVE ASSISTANT [facility] 1.114 350.1.13.10 4.2.7.2.686 [id number] [facility] 2020-03-04 00:00:00 2020-03-04 00:00:00 Telephone Ollie Chambers [facility] 1.114 350.1.13.10 4.2.7.2.686 [id number] [facility] 2020-03-01 13:00:02 2020-03-01 13:20:02 Urgent Care Pob1, Acute Care Clinic [facility] One 1.114 350.1.13.10 4.2.7.2.686 [id number] [facility] 2020-03-01 13:20:00 2020-03-01 13:20:00 [facility] [id number] [facility] 2020-03-01 00:00:00 2020-03-01 00:00:00 Letter (Out) Doctor Unassigned, [place] [facility] 1..114 350.1.13.10 4.2.7.2.686 [id number] [facility] 2019-11-11 11:30:00 2019-11-11 11:30:00 Appointmen t; VIKTORIA ARANDA M.D. CROSS, TAMIKA, M.D. [facility] [id number] [place] [facility] 2019-10-07 13:45:00 2019-10-07 13:45:00 Appointmen t; VIKTORIA ARANDA M.D. CROSS, TAMIKA, M.D. [facility] [id number] [place] [facility] 2018-05-22 11:15:00 2018-05-22 11:15:00 Appointmen t; MAURICE AGUIRRE M.D. UGHANZE, COMFORT, M.D. [facility] [id number] [place] [facility] 2018-03-06 09:45:00 2018-03-06 09:45:00 Appointmen t; MAURICE AGUIRRE M.D. UGHANZE, COMFORT, M.D. [facility] [id number] [place] [facility] Results Test Description Test Time Test Comments Results Resul t Comments Source XR FINGERS 2 VW LEFT 2023-10-29 05:19:40 Exam: XR FINGERS 2 VW LEFT, 10/28/2023 10:45 PM. Ordering Physician: DELANEY HADLEY. History: Injury to left middle finger . Technique: XR FINGERS 2 VW LEFT Comparison: None. Findings: See below. [facility] MOLECULAR [id number] 15:53:10* Test Item Value Reference Range Interpretation Comme nts POCT Molecular Strep (test c ode = 62099-4) Negative Negative Lab Interpretation (test cod e = 95678-7) Normal [facility] SARS-COV-2 ANTIGEN (BINAX NOW)2023-05-20 15:52:00* Test Item Value Reference Range Interpretation Comme nts POCT SARS-COV-2 ANTIGEN (test code = 11354-1) Not Detected Not Detected On board controls acceptable with C Line (test code = 3574) Yes DANIELLE (test code = DANIELLE) accurate developme nt and interpretation of all internal controls Lab Interpretation (test code = 59078-3) [id number] 20:58:00* Test Item Value Reference Range Interpretation Comme nts Color, UA (test code = 1076) Yellow Clarity, UA (test code = 1884777) Clear Glucose, UA (test code = 8237564) Negative Negative Bilirubin, UA (test code = 0209967) Negative Negative Ketones, Urine (test code = 13403-4) Negative Negative, Trace Spec Grav, UA (test code = 914237295) Blood, UA (test code = 287249222) Negative pH, UA (test code = 7503056) 5.0-8.5 Protein, UA (test code = 8493009) Negative Negative, Trace, 200(+2)mg/dL, 15/mg/dL Urobilinogen, UA (test code = 1222850) See_Comment [Automated messa ge] The system which generated this result transmitted reference range: 0.2. The reference range was not used to interpret this result as normal/abnormal. Nitrite, UA (test code = 4513532) Negative Negative, Trace Leukocytes, UA (test code = 2231408) Negative Negative, Trace Lab Interpretation (test code = 04421-7) Normal [facility] WITH [id number] 11:36:18* Test Item Value Reference Range Interpretation [...] 33.7 g/dL 31.6-35.1 RDW-SD (test code = 41430-7) 42.8 fL 39.0-49.9 RDW-CV (test code = 788-0) 13.0 % 12.0-15.5 PLT (test code = 777-3) See_Comment [Automated CharityStarsa ge] The system which generated this result transmitted reference range: 166 - 358 10*3/?L. The reference range was not used to interpret this result as normal/abnormal. MPV (test code = 91581-5) 10.0 fL 9.5-12.9 NRBC/100 WBC (test code = 6975115497) See_Comment [Automated Pruffi ssage] The system which generated this result transmitted reference range: 0.0 - 10.0 /100 WBCs. The reference range was not used to interpret this result as normal/abnormal. NRBC x10^3 (test code = 8156668568) <0.01 See_Comment [Automated CharityStarsa ge] The system which generated this result transmitted reference range: 10*3/?L. The reference range was not used to interpret this result as normal/abnormal. GRAN MAT (NEUT) % (test code = 770-8) 77.6 % IMM GRAN % (test code = 4646147332) 0.70 % LYMPH % (test code = 736-9) 14.5 % MONO % (test code = 5905-5) 6.5 % EOS % (test code = 713-8) 0.2 % BASO % (test code = 706-2) 0.5 % GRAN MAT x10^3(ANC) (test code = 6084819660) 9.50 10*3/uL 1.88-7.09 H IMM GRAN x10^3 (test code = 9831555528) 0.08 10*3/uL 0.00-0.06 H LYMPH x10^3 (test code = 731-0) 1.77 10*3/uL 1.32-3.29 MONO x10^3 (test code = 742-7) 0.79 10*3/uL 0.33-0.92 EOS x10^3 (test code = 711-2) 0.03 10*3/uL 0.03-0.39 BASO x10^3 (test code = 704-7) 0.06 10*3/uL 0.01-0.07 PLT ESTIMATE (test code = 9317-9) Normal Normal Lab Interpretation (test code = 56942-1) Abnormal [facility] METABOLIC PANEL (NA, K, CL, CO2, GLUCOSE, BUN, CREATININE, CA)2022-01-08 09:32:30* Test Item Value Reference Range Interpretation Comme nts NA (test code = 4846916321) 135 mmol/L 135-145 K (test code = 9819828048) 3.7 mmol/L 3.5-5.0 CL (test code = 6943783166) 110 mmol/L 98-108 H CO2 TOTAL (test code = 8802042863) 20 mmol/L 23-31 L AGAP (test code = 2719121423) 2-16 BUN (test code = 6484601998) 3 mg/dL 7-23 L GLUCOSE (test code = 3892840875) 78 mg/dL 70-110 CREATININE (test code = 7025951952) 0.51 mg/dL 0.50-1.04 CALCIUM (test code = 3887290929) 8.4 mg/dL 8.6-10.6 L eGFR (test code = 5922216983) mL/min/1.73m2 DANIELLE (test code = DANIELLE) Association [...] imaging tests). Lab Interpretation (test code = 64313-4) Abnormal [facility]. METABOLIC PANEL (91294)2022-01-07 11:02:15* Test Item Value Reference Range Interpretation Comme nts NA (test code = 5367457135) 133 mmol/L 135-145 L K (test code = 1867090725) 3.5 mmol/L 3.5-5.0 CL (test code = 5553083738) 104 mmol/L 98-108 CO2 TOTAL (test code = 6792663234) 21 mmol/L 23-31 L AGAP (test code = 8990956556) 2-16 BUN (test code = 4338975401) 7 mg/dL 7-23 GLUCOSE (test code = 9210264417) 93 mg/dL 70-110 CREATININE (test code = 3350708645) 0.56 mg/dL 0.50-1.04 TOTAL BILI (test code = 9449274766) 0.4 mg/dL 0.1-1.1 CALCIUM (test code = 7283101692) 8.8 mg/dL 8.6-10.6 T PROTEIN (test code = 7412712369) 6.3 g/dL 6.3-8.2 ALBUMIN (test code = 5378973870) 3.4 g/dL 3.5-5.0 L ALK PHOS (test code = 5518330140) 79 U/L 34-122 ALTv (test code = 1742-6) 17 U/L 5-35 AST(SGOT) (test code = 9738784762) 22 U/L 13-40 eGFR (test code = 2188109875) mL/min/1.73m2 DANIELLE (test code = DANIELLE) Association [...] imaging tests). Lab Interpretation (test code = 94274-1) [facility] WITH [id number] 10:46:53* Test Item Value Reference Range Interpretation [...] 34.2 g/dL 31.6-35.1 RDW-SD (test code = 81062-1) 41.5 fL 39.0-49.9 RDW-CV (test code = 788-0) 12.7 % 12.0-15.5 PLT (test code = 777-3) See_Comment [Automated message] The system which generated this result transmitted reference range: 166 - 358 10*3/?L. The reference range was not used to interpret this result as normal/abnormal. MPV (test code = 06313-2) 9.8 fL 9.5-12.9 NRBC/100 WBC (test code = 7547947328) See_Comment [Automated message] The system which generated this result transmitted reference range: 0.0 - 10.0 /100 WBCs. The reference range was not used to interpret this result as normal/abnormal. NRBC x10^3 (test code = 5553169334) <0.01 See_Comment [Automated message] The system which generated this result transmitted reference range: 10*3/?L. The reference range was not used to interpret this result as normal/abnormal. GRAN MAT (NEUT) % (test code = 770-8) 87.5 % IMM GRAN % (test code = 0340732345) 0.40 % LYMPH % (test code = 736-9) 6.4 % MONO % (test code = 5905-5) 5.4 % EOS % (test code = 713-8) 0.1 % BASO % (test code = 706-2) 0.2 % GRAN MAT x10^3(ANC) (test code = 2919590618) 12.98 10*3/uL 1.88-7.09 H IMM GRAN x10^3 (test code = 7838109981) 0.06 10*3/uL 0.00-0.06 LYMPH x10^3 (test code = 731-0) 0.95 10*3/uL 1.32-3.29 L MONO x10^3 (test code = 742-7) 0.80 10*3/uL 0.33-0.92 EOS x10^3 (test code = 711-2) <0.03 0.03-0.39 L BASO x10^3 (test code = 704-7) 0.03 10*3/uL 0.01-0.07 Lab Interpretation (test code = 30816-3) [facility] [id number] 15:01:10* Test Item Value Reference Range Interpretation Comments TROPONIN I (test code = 0474120969) 0.002 ng/mL See_Comment [Automated message] The system [...] of biotin. Lab Interpretation (test code = 85616-9) [facility] (99043)2021-12-24 14:50:10* Test Item Value Reference Range Interpretation Comme nts NA (test code = 8303598206) 135 mmol/L 135-145 K (test code = 1436226761) 3.6 mmol/L 3.5-5.0 CL (test code = 0527341153) 104 mmol/L 98-108 CO2 TOTAL (test code = 5267015920) 22 mmol/L 23-31 L AGAP (test code = 3405547662) 2-16 BUN (test code = 7050782893) 4 mg/dL 7-23 L GLUCOSE (test code = 1709742228) 83 mg/dL 70-110 CREATININE (test code = 5094699369) 0.48 mg/dL 0.50-1.04 L TOTAL BILI (test code = 8604605008) 0.6 mg/dL 0.1-1.1 CALCIUM (test code = 8757453896) 8.6 mg/dL 8.6-10.6 T PROTEIN (test code = 5677562523) 6.1 g/dL 6.3-8.2 L ALBUMIN (test code = 0777458919) 3.4 g/dL 3.5-5.0 L ALK PHOS (test code = 8790324078) 79 U/L 34-122 ALTv (test code = 1742-6) 28 U/L 5-35 AST(SGOT) (test code = 6806608292) 37 U/L 13-40 eGFR (test code = 3560258595) mL/min/1.73m2 DANIELLE (test code = DANIELLE) Association [...] imaging tests). Lab Interpretation (test code = 21461-2) [facility] 14:50:10* Test Item Value Reference Range Interpretation Comme nts MAGNESIUM (test code = 0248321098) 1.6 mg/dL 1.7-2.4 L Lab Interpretation (test cod e = 50473-8) Abnormal [facility] Center[facility]-UYEAR3335-02-56 14:48:49* Test Item Value Reference Range Interpretation Comments D-DIMER (test code = 9622337294) See_Comment H [Automated message] The system which [...] a diagnosis. Lab Interpretation (test code = 32093-1) [facility]normal [facility] WITH [id number] 14:37:49* Test Item Value Reference Range Interpretation [...] 34.0 g/dL 31.6-35.1 RDW-SD (test code = 70254-1) 45.4 fL 39.0-49.9 RDW-CV (test code = 788-0) 13.3 % 12.0-15.5 PLT (test code = 777-3) See_Comment [Automated message] The system which generated this result transmitted reference range: 166 - 358 10*3/?L. The reference range was not used to interpret this result as normal/abnormal. MPV (test code = 03458-4) 9.5 fL 9.5-12.9 NRBC/100 WBC (test code = 2476933068) See_Comment [Automated message] The system which generated this result transmitted reference range: 0.0 - 10.0 /100 WBCs. The reference range was not used to interpret this result as normal/abnormal. NRBC x10^3 (test code = 1100057084) <0.01 See_Comment [Automated message] The system which generated this result transmitted reference range: 10*3/?L. The reference range was not used to interpret this result as normal/abnormal. GRAN MAT (NEUT) % (test code = 770-8) 86.4 % IMM GRAN % (test code = 3204536172) 0.50 % LYMPH % (test code = 736-9) 7.0 % MONO % (test code = 5905-5) 5.7 % EOS % (test code = 713-8) 0.1 % BASO % (test code = 706-2) 0.3 % GRAN MAT x10^3(ANC) (test code = 3247348623) 12.13 10*3/uL 1.88-7.09 H IMM GRAN x10^3 (test code = 3207306552) 0.07 10*3/uL 0.00-0.06 H LYMPH x10^3 (test code = 731-0) 0.98 10*3/uL 1.32-3.29 L MONO x10^3 (test code = 742-7) 0.80 10*3/uL 0.33-0.92 EOS x10^3 (test code = 711-2) <0.03 0.03-0.39 L BASO x10^3 (test code = 704-7) 0.04 10*3/uL 0.01-0.07 Lab Interpretation (test code = 81264-9) Abnormal [facility] URINALYSIS W/O SPECIFIC [id number] 20:33:00* Test Item Value Reference Range Interpretation [...] = 3257) n/a Negative - Negati ve [facility] URINALYSIS W/O SPECIFIC [id number] 16:14:00* Test Item Value Reference Range Interpretation [...] = 3257) N/A Negative - Negati ve [facility] URINALYSIS W/O SPECIFIC [id number] 19:04:00* Test Item Value Reference Range Interpretation [...] = 3257) n/a Negative - Negati ve [facility][] HCG, TOTAL, [id number] 13:09:00* Test Item Value Reference Range Interpretation Comme nts HCG, TOTAL, QN (test code = HCG, TOTAL, QN) 8 {miU/ml} Reference RangeN on or premenopausal <5Postmenopausal <10 Values from different assay methods may vary.The use of this assay to monitor or to diagnose patients with cancer or any condition unrelatedto has not been cleared or approved bythe FDA or the mva still operator of the assay. Women with hCG values between 5 and 25 mIU/mLshould have the result confirmed by repeatanalysis in 2 to 4 days if clinically indicated. Values less than 10 are considered normal forpost-menopausal females. [place] [facility]] CBC (INCLUDES DIFF/PLT)2019-11-11 13:47:00* Test Item Value Reference Range Interpretation Comme nts WHITE BLOOD CELL COUNT (test code = WHITE BLOOD CELL COUNT) 7.0 {Thousand/u} 4.5-13.0 N RED BLOOD CELL COUNT (test code = RED BLOOD CELL COUNT) 4.22 {Million/uL} 3.80-5.10 N HEMAGLOBIN; Normal (test code = 98323-2) 12.9 g/dl 11.5-15.3 N HEMATOCRIT; Normal (test code = 4544-3) 38.3 % 34.0-46.0 N MCV; Normal (test code = 787-2) 90.8 fL 78.0-98.0 N MCHC; Normal (test code = 96290-5) 33.7 g/dl 31.0-36.0 N RDW; Normal (test code = 788-0) 13.0 % 11.0-15.0 N PLATELET COUNT; Normal (test code = 777-3) 231 {Thousand/u} 140-400 N MPV; Normal (test code = 25416-4) 10.5 fL 7.5-12.5 N ABSOLUTE NEUTROPHILS (test code = ABSOLUTE NEUTROPHILS) 4865 {cells/uL} 7492-0540 N ABSOLUTE LYMPHOCYTES (test code = ABSOLUTE LYMPHOCYTES) 1757 {cells/uL} 1075-4644 N ABSOLUTE MONOCYTES (test code = ABSOLUTE MONOCYTES) 301 {cells/uL} 200-900 N ABSOLUTE EOSINOPHILS (test code = ABSOLUTE EOSINOPHILS) 49 {cells/uL} 15-500 N ABSOLUTE BASOPHILS (test code = ABSOLUTE BASOPHILS) 28 {cells/uL} 0-200 N NEUTROPHILS (test code = NEUTROPHILS) 69.5 % N LYMPHOCYTES (test code = LYMPHOCYTES) 25.1 % N MONOCYTES; Normal (test code = 79348-8) 4.3 % N EOSINOPHILS; Normal (test code = 50951-0) 0.7 % N BASOPHILS; Normal (test code = 34508-1) 0.4 % N [facility]] HCG, TOTAL, [id number] 13:47:00* Test Item Value Reference Range Interpretation Comme nts HCG, TOTAL, QN (test code = HCG, TOTAL, QN) 399 {miU/ml} Reference RangeN on or premenopausal <5Postmenopausal <10 Values from different assay methods may vary.The use of this assay to monitor or to diagnose patients with cancer or any condition unrelatedto has not been cleared or approved bythe FDA or the mva still operator of the assay. [facility][Q] ABO GROUP AND RH TYPE (REFL)2019-11-11 13:47:00* Test Item Value Reference Range Interpretation Comme nts ABO GROUP (test code = 883-9) O RH TYPE (REFL) (test code = 51443-7) RH(D) POSITIVE For additional information, please refer to http://education.LiveBu[employer].com/faq/FA Q111 (This link is being provided for informational/educatio nal purposes only.) [facility][] CBC (INCLUDES DIFF/PLT)2019-11-11 13:47:00* Test Item Value Reference Range Interpretation Comme nts WHITE BLOOD CELL COUNT (test code = WHITE BLOOD CELL COUNT) 7.0 {Thousand/u} 4.5-13.0 N RED BLOOD CELL COUNT (test code = RED BLOOD CELL COUNT) 4.22 {Million/uL} 3.80-5.10 N HEMAGLOBIN; Normal (test code = 16865-4) 12.9 g/dl 11.5-15.3 N HEMATOCRIT; Normal (test code = 4544-3) 38.3 % 34.0-46.0 N MCV; Normal (test code = 787-2) 90.8 fL 78.0-98.0 N MCHC; Normal (test code = 85472-7) 33.7 g/dl 31.0-36.0 N RDW; Normal (test code = 788-0) 13.0 % 11.0-15.0 N PLATELET COUNT; Normal (test code = 777-3) 231 {Thousand/u} 140-400 N MPV; Normal (test code = 55220-0) 10.5 fL 7.5-12.5 N ABSOLUTE NEUTROPHILS (test code = ABSOLUTE NEUTROPHILS) 4865 {cells/uL} 0507-4512 N ABSOLUTE LYMPHOCYTES (test code = ABSOLUTE LYMPHOCYTES) 1757 {cells/uL} 9596-3168 N ABSOLUTE MONOCYTES (test code = ABSOLUTE MONOCYTES) 301 {cells/uL} 200-900 N ABSOLUTE EOSINOPHILS (test code = ABSOLUTE EOSINOPHILS) 49 {cells/uL} 15-500 N ABSOLUTE BASOPHILS (test code = ABSOLUTE BASOPHILS) 28 {cells/uL} 0-200 N NEUTROPHILS (test code = NEUTROPHILS) 69.5 % N LYMPHOCYTES (test code = LYMPHOCYTES) 25.1 % N MONOCYTES; Normal (test code = 40286-3) 4.3 % N EOSINOPHILS; Normal (test code = 35279-8) 0.7 % N BASOPHILS; Normal (test code = 67216-9) 0.4 % N [facility][QL] HCG, TOTAL, [id number] 13:47:00* Test Item Value Reference Range Interpretation Comme nts HCG, TOTAL, QN (test code = HCG, TOTAL, QN) 399 {miU/ml} Reference RangeN on or premenopausal <5Postmenopausal <10 Values from different assay methods may vary.The use of this assay to monitor or to diagnose patients with cancer or any condition unrelatedto has not been cleared or approved bythe FDA or the mva still operator of the assay. [facility][Q] ABO GROUP AND RH TYPE (REFL)2019-11-11 13:47:00* Test Item Value Reference Range Interpretation Comme nts ABO GROUP (test code = 883-9) O RH TYPE (REFL) (test code = 78091-2) RH(D) POSITIVE For additional information, please refer to http://education.[employer]/faq/FA Q111 (This link is being provided for informational/educatio nal purposes only.) [facility][O] Urine Test (in office)2019-11-11 11:46:00* Test Item Value Reference Range Interpretation Comme nts Test, Urine; Abnor mal (test code = 2106-3) POsitive A Control Line Present? (test code = Control Line Present?) Yes N Test Lot# (test code = Test Lot#) 390309 N [facility] Notes Date/Time Note Provider Source 2023-10-29 00:16:44 xKUc+nV+tmnBscgaTpPN BEMDn9En4oniRRq Y8qBzcWPFMVHFjsietjebjMyPMxmn5619-1 10-28T00:16:44 Registration called stating pt said she was leaving. Pt left ambulatory out of [facility]. 89112-3Gcaztcskr department PcyzXJ3892-12-51F49:17:49Emergency department NoteTXT1.2.840.822556.1.13.104.2.7. 2.678306|[id number] for patient uxhd72073-0QhliPRHQJKKCGLJXebnllazv C-CDA narrative [id number] Caal RN[address] Bn[id number] 8CABYEBRQBOKZKCNGDFOXFL2260-36-29Y4 0:17:491.2.840.416033.1.72.3.15|1.2 .840.687821.1.13.104.2.7.2.727879_2 [id number] Kaylee Caal RN [facility] 2023-10-28 22:34:57 JqC7COl5ExiJoklQTGl5 tOnL+aX/gHyGUis Fg74nWA+h7+7ioArpE1M3Ez43PWTf4646-2 10-27T22:34:57 Pt arrived with c/o nail avulsion on the L middle finger. Pt reports slamming her hand in the door by accident. Accident occurred 5 min [employer]. 45429-7Rukvmukzl department Triage yfqgWQ4154-87-02F02:37:52[facility] Triage noteTXT1.2.840.812213.1.13.104.2.7. 2.522570|[id number] for patient bdys52422-6Ivwkkyfyn department NoteLNNARRATIVEFormatted C-CDA narrative [id number] A Diaz RN[address] Yd[id number] 2OLGGONZQESNSRJTOCOCJYL9523-37-87O1 2:37:521.2.840.886535.1.72.3.15|1.2 .840.961599.1.13.104.2.7.2.727879_2 [id number] Zulma Kirby RN [facility]
--- NOTE | 2023-10-31 22:32 | EDPHYS ---
Physician Documentation [facility] Name: Mini Edmondson Age: 23 yrs Sex: Female : 2000 Arrival Date: 10/31/2023 Time: 20:49 Bed DX3 Private MD: ED Physician Cornelio Marshall HPI: 10/30 20:55 This 23 yrs old Female presents to ER via Unassigned with complaints of sp4 Finger Injury. 10/31 19:09 23-year-old female presents for wound check and dressing change. . sp4 19:10 On 10/29/2023 where patient was diagnosed with - left middle finger distal phalanx sp4 laceration, left middle finger distal phalanx fingernail avulsion, left middle finger crush injury, and Left middle finger distal phalanx open fracture. 19:10 Patient was given cephalexin p.o. for wound prophylaxis and also given a sterile sp4 dressing and a splint. Today patient presents for wound check and a dressing change secondary to the fact that she is now missing fingernail from the left middle finger. . Historical: - Allergies: 10/30 21:16 Rocephin; tl4 21:16 PENICILLINS; tl4 - Home Meds: 21:17 None [Active]; tl4 - PMHx: 21:16 None; tl4 - PSHx: 21:16 section; tl4 - Immunization history:: Adult Immunizations unknown. - Social history:: Smoking status: Patient denies any tobacco usage or history of. - Family history:: not pertinent. ROS: 10/31 19:10 Constitutional: Negative for fever, chills, and weight loss, sp4 All other systems are negative, Exam: 19:10 Constitutional: This is a well developed, well nourished patient who is awake, alert, sp4 and in no acute distress. Head/Face: Normocephalic, atraumatic. Eyes: Pupils equal round and reactive to light, extra-ocular motions intact. Lids and lashes normal. Conjunctiva and sclera are not injected. Cornea within normal limits. Periorbital areas with no swelling, redness, or edema. ENT: Nares patent. No nasal discharge, no septal abnormalities noted. Tympanic membranes are normal and external auditory canals are clear. Oropharynx with no redness, swelling, or masses, exudates, or evidence of obstruction, uvula midline. Mucous membranes moist. Neck: Trachea midline, no thyromegaly or masses palpated, and no cervical lymphadenopathy. Supple, full range of motion without nuchal rigidity, or vertebral point tenderness. Chest/axilla: Normal chest wall appearance and motion. Nontender with no deformity. No lesions are appreciated. Cardiovascular: Regular rate and rhythm with a normal S1 and S2. No gallops, murmurs, or rubs. Normal PMI, no JVD. No pulse deficits. Respiratory: Lungs have equal breath sounds bilaterally, clear to auscultation and percussion. No rales, rhonchi or wheezes noted. No increased work of breathing, no retractions or nasal flaring. Abdomen/GI: Soft, with normal bowel sounds. No distension or tympany. No guarding or rebound. No evidence of tenderness throughout. Back: No spinal tenderness. No costovertebral tenderness. Skin: Warm, dry with normal turgor. Normal color with no rashes, no lesions, and no evidence of cellulitis. MS/ Extremity: Pulses equal, no cyanosis. Neurovascular intact. Full, normal range of motion. Left middle finger = missing fingernail with granulation tissue and healthy appearing nail bed. Previously noted laceration clean dry and intact, sterile dressing was replaced with sterile bandage and left middle and index finger were salvatore taped together to provide splint type immobilization. Neuro: Awake and alert, GCS 15, oriented to person, place, time, and situation. Cranial nerves II-XII grossly intact. Motor strength 5/5 in all extremities. Sensory grossly intact. Psych: Awake, alert, with orientation to person, place and time. Behavior, mood, and affect are within normal limits Vital Signs: 10/30 21:14 BP 120 / 83; Pulse 95; Resp 15; Temp 99(TE); Pulse Ox 100% on R/A; Weight 86.18 kg; tl4 Height 5 ft. 7 in. ; Pain 0/10; 21:14 Body Mass Index 29.76 (86.18 kg, 170.18 cm) tl4 21:14 Pain Scale: Adult tl4 Procedures: 10/31 19:10 Performed Wound care. Sterile dressing with Xeroform was replaced to the left middle sp4 finger and left middle finger was salvatore taped to the left index finger. MDM: 10/30 22:31 Patient medically screened. sp4 10/31 19:10 Differential diagnosis: fracture, laceration, crush injury. Data reviewed: vital signs, sp4 nurses notes, old medical records. ED course: Stable for discharge home with recommendation to return 11/06/2023 for wound check. Patient was also advised to see orthopedist Dr. Mckeon for left middle finger distal phalanx fracture. . Administered Medications: No medications were administered Disposition Summary: 10/31/23 22:31 Discharge Ordered Problem: new sp4 Symptoms: have improved sp4 Condition: Stable sp4 Diagnosis - Nondisplaced fracture of distal phalanx of left middle finger sp4 - Finger nail avulsion on the left middle finger, laceration left middle finger, sp4 Followup: sp4 - With: Tank Mckeon MD - When: 7 - 10 days - Reason: Recheck today's complaints Discharge Instructions: - Discharge Summary Sheet sp4 - Avulsion Fracture of the Hand sp4 Forms: - Patient Portal Instructions sp4 Signatures: Cornelio Marshall MD MD sp4 Jonathan Del Rosario RN RN tl4 Corrections: (The following items were deleted from the chart) 10/30 21:17 21:16 Home Meds: Vitamin Oral tab 1 tab once daily [Inactive]; tl4 tl4
--- NOTE | 2023-10-31 22:32 | ER ---
Nurse's Notes [facility] Name: Mini Edmondson Age: 23 yrs Sex: Female : 2000 Arrival Date: 10/31/2023 Time: 20:49 Bed DX3 Private MD: Diagnosis: Nondisplaced fracture of distal phalanx of left middle finger;Finger nail avulsion on the left middle finger, laceration left middle finger, Presentation: 10/30 21:14 Chief complaint: Patient states: Pt states she is here for a wound recheck for Dr. katherine Mckeon. Pt denies any pain or drainage. Coronavirus screen: At this time, the client does not indicate any symptoms associated with coronavirus-19. Ebola Screen: No symptoms or risks identified at this time. Initial Sepsis Screen: Does the patient meet any 2 criteria? No. Patient's initial sepsis screen is negative. Does the patient have a suspected source of infection? No. Patient's initial sepsis screen is negative. Risk Assessment: Do you want to hurt yourself or someone else? Patient reports no desire to harm self or others. Onset of symptoms was October 28, 2023. 21:14 Method Of Arrival: Ambulatory tl4 21:14 Acuity: GIRISH 4 tl4 Triage Assessment: 21:17 General: Appears in no apparent distress. Behavior is calm, cooperative. Pain: Denies tl4 pain. EENT: No deficits noted. No signs and/or symptoms were reported regarding the EENT system. Neuro: No deficits noted. Cardiovascular: No deficits noted. Respiratory: No deficits noted. GI: No deficits noted. No signs and/or symptoms were reported involving the gastrointestinal system. : No deficits noted. No signs and/or symptoms were reported regarding the genitourinary system. Derm: No deficits noted. No signs and/or symptoms reported regarding the dermatologic system. Musculoskeletal: Reports wound recheck, no problems. Injury Description: laceration, repaired. Historical: - Allergies: 21:16 Rocephin; tl4 21:16 PENICILLINS; tl4 - Home Meds: 21:17 None [Active]; tl4 - PMHx: 21:16 None; tl4 - PSHx: 21:16 section; tl4 - Immunization history:: Adult Immunizations unknown. - Social history:: Smoking status: Patient denies any tobacco usage or history of. - Family history:: not pertinent. Screenin:37 [facility] ED Fall Risk Assessment (Adult) History of falling in the last 3 months, cm10 including since admission No falls in past 3 months (0 pts) Confusion or Disorientation No (0 pts) Intoxicated or Sedated No (0 pts) Impaired Gait No (0 pts) Mobility Assist Device Used No (0 pt) Altered Elimination No (0 pt) Score/Fall Risk Level 0 - 2 = Low Risk Oriented to surroundings, Maintained a safe environment, Hourly rounding (assess needs \T\ fall precautionary measures) done. Abuse screen: Denies threats or abuse. Denies injuries from another. Nutritional screening: No deficits noted. Tuberculosis screening: No symptoms or risk factors identified. Assessment: 22:38 General: Appears in no apparent distress. comfortable, Behavior is calm, cooperative. cm10 Neuro: No deficits noted. Level of Consciousness is awake, alert, obeys commands, Oriented to person, place, time, situation. Respiratory: No deficits noted. Airway is patent Respiratory effort is even, unlabored, Respiratory pattern is regular, symmetrical. Vital Signs: 21:14 BP 120 / 83; Pulse 95; Resp 15; Temp 99(TE); Pulse Ox 100% on R/A; Weight 86.18 kg; tl4 Height 5 ft. 7 in. ; Pain 0/10; 21:14 Body Mass Index 29.76 (86.18 kg, 170.18 cm) tl4 21:14 Pain Scale: Adult tl4 ED Course: 20:52 Patient arrived in ED. mr 20:55 Cornelio Marshall MD is Attending Physician. sp4 21:16 Triage completed. tl4 21:18 Arm band placed on right wrist. tl4 22:30 Tank Mckeon MD is Referral Physician. sp4 22:37 Patient has correct armband on for positive identification. Provided Education on: cm10 Follow-up instructions. 22:37 No provider procedures requiring assistance completed. Patient did not have IV access cm10 during this emergency room visit. Administered Medications: No medications were administered Medication: 22:37 VIS not applicable for this client. cm10 Outcome: 22:31 Discharge ordered by . sp4 22:37 Patient left the ED. rv1 22:38 Discharged to home ambulatory, with family, cm10 22:38 Condition: good 22:38 Discharge instructions given to patient, Instructed on discharge instructions, follow up and referral plans. Demonstrated understanding of instructions, follow-up care, Signatures: Hanna Calero, Osman Brewer mr GoldPema rv1 Cornelio Marshall MD MD sp4 Allyson Abdul RN RN cm10 Jonathan Del Rosario RN RN tl4 Corrections: (The following items were deleted from the chart) 21:16 21:14 Onset of symptoms was October 31, 2023 tl4 tl4 21:17 21:16 Home Meds: Vitamin Oral tab 1 tab once daily [Inactive]; tl4 tl4
[2023-10-31 22:53] VITALS: BP 120/83; TEMP 99; O2SAT 100
== END ==
LOC: ER 20:49
DX: S62.663A Nondisplaced fracture of distal phalanx of left middle finger, initial encounter for closed fracture (principal); S61.303A Unspecified open wound of left middle finger with damage to nail, initial encounter; S61.213A Laceration without foreign body of left middle finger without damage to nail, initial encounter
CPT/HCPCS: 99282